=== PATIENT | male | born 1940 | race Caucasian/White ===

== ENCOUNTER 2017-01-25 10:22 | Inpatient (IN) | payer MEDICARE ==
[2017-01-25] MEDS ORDERED: IBUPROFEN 600 MG TAB PO STA (11:24)
[2017-01-25] MEDS ORDERED: ACETAMINOPHEN TAB 500 MG TAB PO STA (11:24)
[2017-01-25] MEDS ORDERED: HYDROmorphone 1 MG/ML 1 ML SYRINGE IVP STA (11:25)
[2017-01-25] MEDS ORDERED: ONDANSETRON 4 MG/2 ML VIAL IVP STA (11:25)
--- NOTE | 2017-01-25 11:27 | ED ---
General Adult HPI - General Chief complaint: Shortness of Breath Stated complaint: BACK AND LUNG PAIN FOLLOWING HIGH FEVER Time Seen by Provider: 01/25/17 11:00 Source: patient, family, RN notes reviewed Mode of arrival: wheelchair Limitations: no limitations - History of Present Illness Initial comments: This is a 76-year-old male who presents emergency Department complaining of severe lower back pain and pleuritic chest pain. Patient states about 5 days who had a 2 day history of fever and then it went away and then the next day he woke up he had severe lower back pain and pain with deep inspiration or cough. Patient states he has no pain in the chest while he is taking a deep breath or coughing. Patient denies any shortness of breath. Patient denies fever over the last couple of days. Patient denies any numbness or weakness or radiation of the back pain down his legs. Patient denies any abdominal pain patient denies nausea vomiting or diarrhea. Patient denies headache patient denies any lightheadedness dizziness or near-syncopal episode. - Related Data Home Medications Medication Instructions Recorded Confirmed Allopurinol [Zyloprim] 200 mg PO DAILY 01/25/17 01/25/17 Clarithromycin [Clarithromycin ER] 500 mg PO DIRECTED 01/25/17 01/25/17 Ferrous Sulfate [Feosol] 325 mg PO DAILY 01/25/17 01/25/17 Hydrocodone/Acetaminophen [Coleman 1 tab PO Q6H PRN 01/25/17 01/25/17 10-325] Krill Oil 500 mg PO DAILY 01/25/17 01/25/17 Lansoprazole 30 mg PO DAILY 01/25/17 01/25/17 Metoprolol Tartrate 25 mg PO BID 01/25/17 01/25/17 Simvastatin [Zocor] 20 mg PO HS 01/25/17 01/25/17 Warfarin [Coumadin] 5 mg PO DAILY 01/25/17 01/25/17 Allergies Allergy/AdvReac Type Severity Reaction Status Date / Time No Known Allergies Allergy Verified 01/25/17 12:16 Review of Systems ROS Statement: Those systems with pertinent positive or pertinent negative responses have been documented in the HPI. ROS Other: All systems not noted in ROS Statement are negative. Past Medical History Past Medical History: Heart Failure, GERD/Reflux, Hyperlipidemia, Hypertension History of Any Multi-Drug Resistant Organisms: None Reported Past Surgical History: Back Surgery, Cardiac Valve Replacement, Joint Replacement Additional Past Surgical History / Comment(s): valve replacement, knee, L4-5 fusion Past Psychological History: No Psychological Hx Reported Smoking Status: Former smoker Past Alcohol Use History: Daily, Occasional Past Drug Use History: None Reported General Exam - General Exam Comments Initial Comments: GENERAL: Patient is well-developed and well-nourished. Patient is nontoxic and well- hydrated and is in moderate distress. ENT: Neck is soft and supple. No significant lymphadenopathy is noted. Oropharynx is clear. Moist mucous membranes. Neck has full range of motion without eliciting any pain. EYES: The sclera were anicteric and conjunctiva were pink and moist. Extraocular movements were intact and pupils were equal round and reactive to light. Eyelids were unremarkable. PULMONARY: Unlabored respirations. Good breath sounds bilaterally. No audible rales rhonchi or wheezing was noted. CARDIOVASCULAR: There is a regular rate and rhythm without any murmurs gallops or rubs. Patient has pain with deep inspiration ABDOMEN: Soft and nontender with normal bowel sounds. No palpable organomegaly was noted. There is no palpable pulsatile mass. SKIN: Skin is clear with no lesions or rashes and otherwise unremarkable. NEUROLOGIC: Patient is alert and oriented x3. Cranial nerves II through XII are grossly intact. Motor and sensory are also intact. Normal speech, volume and content. Symmetrical smile. MUSCULOSKELETAL: Normal extremities with adequate strength and full range of motion. Patient has tenderness in the lumbar region bilaterally. Patient is in exquisite pain when trying to sit him up in bed he states the pain is in his lower back. LYMPHATICS: No significant lymphadenopathy is noted PSYCHIATRIC: Normal psychiatric evaluation. Normal interpersonal interactions appears functionally intact in deals appropriately with others. No signs of depression. No signs of anxiety. Limitations: no limitations Course Vital Signs 01/25/17 01/25/17 01/25/17 10:50 11:20 11:52 Temperature 99.0 F Pulse Rate 77 81 Respiratory 18 18 15 Rate Blood Pressure 151/86 148/79 O2 Sat by Pulse 95 96 Oximetry Medical Decision Making - Medical Decision Making EKG shows atrial fibrillation with occasional PVC at 80 bpm QRS is 90 QT intervals 46 QTC is 468. EKG shows no ST segment elevation or depression no T- wave abnormalities are noted Patient was feeling better after Dilaudid but any kind of movement made him grimace because the lower back pain. Patient also had a sweat as he tried to move because of his lower back. - Lab Data Result diagrams: 01/25/17 11:35 01/25/17 11:35 Lab Results 01/25/17 01/25/17 01/25/17 Range/Units 11:35 11:35 11:35 WBC 12.8 H (3.8-10.6) k/uL RBC 4.00 L (4.30-5.90) m/uL Hgb 11.5 L (13.0-17.5) gm/dL Hct 36.5 L (39.0-53.0) % MCV 91.3 (80.0-100.0) fL MCH 28.9 (25.0-35.0) pg MCHC 31.6 (31.0-37.0) g/dL RDW 17.8 H (11.5-15.5) % Plt Count 155 (150-450) k/uL Neutrophils % 85 % Lymphocytes % 4 % Monocytes % 7 % Eosinophils % 0 % Basophils % 0 % Neutrophils # 10.9 H (1.3-7.7) k/uL Lymphocytes # 0.5 L (1.0-4.8) k/uL Monocytes # 0.9 (0-1.0) k/uL Eosinophils # 0.0 (0-0.7) k/uL Basophils # 0.0 (0-0.2) k/uL Anisocytosis Slight Sodium 135 L (137-145) mmol/L Potassium 4.3 (3.5-5.1) mmol/L Chloride 101 (98-107) mmol/L Carbon Dioxide 23 (22-30) mmol/L Anion Gap 11 mmol/L BUN 30 H (9-20) mg/dL Creatinine 0.80 (0.66-1.25) mg/dL Est GFR (MDRD) Af Amer >60 (>60 ml/min/1.73 sqM) Est GFR (MDRD) Non-Af >60 (>60 ml/min/1.73 sqM) Glucose 119 H (74-99) mg/dL Plasma Lactic Acid Francisco Javier (0.7-2.0) mmol/L Calcium 9.1 (8.4-10.2) mg/dL Total Bilirubin 1.5 H (0.2-1.3) mg/dL AST 38 (17-59) U/L ALT 49 (21-72) U/L Alkaline Phosphatase 105 (38-126) U/L Total Creatine Kinase 85 (55-170) U/L CK-MB (CK-2) 2.5 H* (0.0-2.4) ng/mL CK-MB (CK-2) Rel Index 2.9 Troponin I 0.097 H* (0.000-0.034) ng/mL Total Protein 6.6 (6.3-8.2) g/dL Albumin 3.4 L (3.5-5.0) g/dL Urine Color Urine Appearance (Clear) Urine pH (5.0-8.0) Ur Specific [place] (1.001-1.035) Urine Protein (Negative) Urine Glucose (UA) (Negative) Urine Ketones (Negative) Urine Blood (Negative) Urine Nitrite (Negative) Urine Bilirubin (Negative) Urine Urobilinogen (<2.0) mg/dL Ur Leukocyte Esterase (Negative) Urine RBC (0-5) /hpf Urine WBC (0-5) /hpf Granular Casts (0) /lpf Urine Mucus (None) /hpf Influenza Type A RNA (Not Detectd) Influenza Type B (PCR) (Not Detectd) 01/25/17 01/25/17 01/25/17 Range/Units 11:35 11:35 11:38 WBC (3.8-10.6) k/uL RBC (4.30-5.90) m/uL Hgb (13.0-17.5) gm/dL Hct (39.0-53.0) % MCV (80.0-100.0) fL MCH (25.0-35.0) pg MCHC (31.0-37.0) g/dL RDW (11.5-15.5) % Plt Count (150-450) k/uL Neutrophils % % Lymphocytes % % Monocytes % % Eosinophils % % Basophils % % Neutrophils # (1.3-7.7) k/uL Lymphocytes # (1.0-4.8) k/uL Monocytes # (0-1.0) k/uL Eosinophils # (0-0.7) k/uL Basophils # (0-0.2) k/uL Anisocytosis Sodium (137-145) mmol/L Potassium (3.5-5.1) mmol/L Chloride (98-107) mmol/L Carbon Dioxide (22-30) mmol/L Anion Gap mmol/L BUN (9-20) mg/dL Creatinine (0.66-1.25) mg/dL Est GFR (MDRD) Af Amer (>60 ml/min/1.73 sqM) Est GFR (MDRD) Non-Af (>60 ml/min/1.73 sqM) Glucose (74-99) mg/dL Plasma Lactic Acid Francisco Javier 1.0 (0.7-2.0) mmol/L Calcium (8.4-10.2) mg/dL Total Bilirubin (0.2-1.3) mg/dL AST (17-59) U/L ALT (21-72) U/L Alkaline Phosphatase (38-126) U/L Total Creatine Kinase (55-170) U/L CK-MB (CK-2) (0.0-2.4) ng/mL CK-MB (CK-2) Rel Index Troponin I (0.000-0.034) ng/mL Total Protein (6.3-8.2) g/dL Albumin (3.5-5.0) g/dL Urine Color Yellow Urine Appearance Cloudy (Clear) Urine pH 5.5 (5.0-8.0) Ur Specific [place] 1.017 (1.001-1.035) Urine Protein 3+ H (Negative) Urine Glucose (UA) Negative (Negative) Urine Ketones Negative (Negative) Urine Blood Small H (Negative) Urine Nitrite Negative (Negative) Urine Bilirubin Negative (Negative) Urine Urobilinogen 3.0 (<2.0) mg/dL Ur Leukocyte Esterase Negative (Negative) Urine RBC 1 (0-5) /hpf Urine WBC 4 (0-5) /hpf Granular Casts 10 (0) /lpf Urine Mucus Rare H (None) /hpf Influenza Type A RNA Not Detected (Not Detectd) Influenza Type B (PCR) Not Detected (Not Detectd) Disposition Clinical Impression: Atrial fibrillation, Elevated troponin, Intractable low back pain Disposition: ADMITTED IP TO THIS HOSP Referrals: Last Orona Jr, [Primary Care Provider] - 1-2 days Time of Disposition: 14:12
[2017-01-25 11:51] LABS: Anisocytosis Slight; Basophils % (A) 0 %; CH 29.3; CHCM 32.3; Eosinophils % (A) 0 %; HCT 36.5 % (39.0-53.0); HDW 2.63; HGB 11.5 gm/dL (13.0-17.5); Luc # (Auto) 0.43; Luc % (Auto) 3; Lymphocytes # (A) 0.5 k/uL (1.0-4.8); Lymphocytes % (A) 4 %; MCH 28.9 pg (25.0-35.0); MCHC 31.6 g/dL (31.0-37.0); MCV 91.3 fL (80.0-100.0); Mean Platelet Volume 7.8; Monocytes # (A) 0.9 k/uL (0-1.0); Monocytes % (A) 7 %; Neutrophils # (A) 10.9 k/uL (1.3-7.7); Neutrophils % (A) 85 %; RDW 17.8 % (11.5-15.5); WBC 12.8 k/uL (3.8-10.6); WBC (Perox) 12.79
[2017-01-25 11:55] LABS: Appearance,Urine Cloudy (Clear); Bilirubin,Urine Negative (Negative); Glucose,Urine (UA) Negative (Negative); Granular Casts,Urine 10 /lpf (0); Ketones,Urine Negative (Negative); Leukocyte Esterase,Urine Negative (Negative); Mucus,Urine Rare /hpf; Nitrite,Urine Negative (Negative); PH, Urine 5.5 (5.0-8.0); Particle Count 8175; Protein,Urine 3+ (Negative); RBC,Urine 1 /hpf (0-5); Specific Gravity,Urine 1.017 (1.001-1.035); UA Billing (MACRO vs. MICRO) MICRO; WBC,Urine 4 /hpf (0-5)
[2017-01-25 12:09] LABS: ALT 49 U/L (21-72); AST 38 U/L (17-59); Alkaline Phosphatase 105 U/L (38-126); Carbon Dioxide 23 mmol/L (22-30); Non-African American GFR(MDRD) >60 (>60 ml/min/1.73 sqM); Total Protein 6.6 g/dL (6.3-8.2)
--- NOTE | 2017-01-25 12:13 | XR ---
EXAMINATION TYPE: XR chest 2V DATE OF EXAM: 01/25/2017 12:08 PM COMPARISON: NONE HISTORY: Difficulty breathing TECHNIQUE: Frontal and lateral views of the chest are obtained. FINDINGS: The heart is enlarged. Interstitium and central vascularity are prominent. Marked arthropa thy present in the right shoulder. No pneumothorax or pleural effusion. The aorta is dense. Patient i s post median sternotomy. Pacemaker is present with the lead in the right ventricle. IMPRESSION: Correlate for pulmonary venous hypertension and interstitial edema, heart failure, follo w-up is recommended.
[2017-01-25 12:30] LABS: Anion Gap 11 mmol/L; Blood Urea Nitrogen 30 mg/dL (9-20); Calcium 9.1 mg/dL (8.4-10.2); Chloride 101 mmol/L (98-107); Glucose 119 mg/dL (74-99); Potassium 4.3 mmol/L (3.5-5.1); Sodium 135 mmol/L (137-145); Total Bilirubin 1.5 mg/dL (0.2-1.3)
[2017-01-25 12:39] LABS: Creatine Kinase MB 2.5 ng/mL (0.0-2.4); Troponin I 0.097 ng/mL (0.000-0.034)
[2017-01-25] MEDS ORDERED: RX INFO: IV CONTRAST WAS GIVEN 1 EACH MISC MISCELLANE PRN (12:47)
--- NOTE | 2017-01-25 14:08 | CT ---
EXAMINATION TYPE: CT lumbar spine w con DATE OF EXAM: 01/25/2017 1:50 PM COMPARISON: MRI lumbar spine July 27, 2010. HISTORY: Patient complains of low back pain. No recent injury or surgery. History of lumbar fusion in 2009. CT DLP: 944 mGycm Automated exposure control for dose reduction was used. CONTRAST: Performed with IV Contrast, patient injected with 100 mL of Omnipaque 300. FINDINGS: There are 5 lumbar-type vertebra redemonstrated. There is levoconvex scoliosis centered in the mid ras mbar spine and dextroconvex scoliosis centered in the lower lumbar spine on coronal images. No acute fracture or dislocation is seen. There is slight grade 1 retrolisthesis of L2 on L3 and anterolisthes is L4 on L5 on sagittal images. There is posterior interpedicular rods and screws transfixing L4 and L5 levels. Advanced disc space narrowing with artificial disc material L4-L5 level is seen. Some ossi fic fusion is present. There is moderate to advanced disc space narrowing with spurring as well as lerner bchondral cystic change and sclerosis at L3-L4 level. There is moderate to advanced disc space narrow ing with sclerosis and subchondral cystic change and moderate spurring at L2-L3 level. Prominent post erior spur effaces anterior thecal sac from inferior L2 vertebra on sagittal image 29. There is vacuu m disc phenomenon with mild to moderate disc space narrowing L1-L2 level. There is posterior spinous process resection L4 and L5 levels noted. Axial images at T12-L1 level are felt within normal limits. Axial images at L1-L2 show mild to moderate broad disc bulge with mild facet degenerative changes ronald aterally. There is effacement of the anterior and posterior lateral thecal sac on axial image 24. The re is suspected moderate bilateral neural foraminal narrowing at this level. Axial images at L2-L3 level show posterior spur disc complex and facet degenerative changes and ligam entum flavum hypertrophy causing spinal canal effacement or stenosis on axial image 32. There is arely re right greater than left neural foraminal narrowing at this level identified. Axial images at the L3-L4 level shows artifact from surgical hardware. Facet arthropathy is present. There is posterior spinal canal compression. There is suspected moderate left and severe bilateral ne ural foraminal narrowing at this level. Axial images at L4-L5 level show dense artificial disc material. There is posterior decompression wit h laminectomy defects and spinous process resection. Ill-defined scar tissue surrounds spinal canal. Bilateral neural foramina are grossly patent. Axial images at L5-S1 level show mild to moderate facet degenerative changes bilaterally. Spinal elizabeth l is preserved. There is mild to moderate bilateral neural foraminal narrowing at this level identifi ed. There is prominent scar tissue along the posterior spinal canal at superior L3 through inferior L4 ve rtebral body levels slightly more round nodular area noted on axial image 39, etiology of this uncert ain, consider synovial cyst or free disc fragment. There is moderate atherosclerotic change of aorta extending into pelvic branch vessels. There is larg e simple appearing cysts or lobulated cyst within septation image medially in the right kidney. There is lobulated simple appearing cyst upper pole level left kidney seen on coronal images. Normal-appea ring appendix is partially imaged the right lower quadrant. Visualized liver is hypodense suggesting fatty infiltration. IMPRESSION: Extensive postsurgical and degenerative changes in the lumbar spine as detailed above. No suspicious well-formed fluid collection or abscess is seen. No acute fractures are noted.
[2017-01-25] MEDS ORDERED: NITROGLYCERIN SL TABS 0.4 MG TAB SUBLINGUAL PRN (14:13)
[2017-01-25] MEDS ORDERED: DIAZEPAM 5 MG/ML 2 ML SYRINGE IVP STA (14:13)
[2017-01-25] MEDS ORDERED: HYDROmorphone 1 MG/ML 1 ML SYRINGE IVP PRN (14:19)
[2017-01-25 15:18] LABS: INR 1.7 (<1.1); Partial Thromboplastin Time 33.4 sec (22.0-30.0); Prothrombin Time 16.7 sec (9.0-12.0)
[2017-01-25 18:28] LABS: Creatine Kinase MB 3.6 ng/mL (0.0-2.4); Troponin I 0.084 ng/mL (0.000-0.034)
[2017-01-25 18:47] VITALS: BMI 26.2
[2017-01-25 20:46] LABS: Glucose,Whole Blood 112 mg/dL (75-99)
[2017-01-25] MEDS: KETOROLAC 30 MG/ML 1 ML VIAL IVP SCH (21:46)
[2017-01-25] MEDS: WARFARIN 5 MG TAB PO SCH (21:47)
[2017-01-25] MEDS: METOPROLOL TARTRATE 25 MG TAB PO SCH (21:47)
[2017-01-25] MEDS: ATORVASTATIN 10 MG TAB PO SCH (21:47)
[2017-01-26 00:04] LABS: Creatine Kinase MB 3.3 ng/mL (0.0-2.4); Troponin I 0.044 ng/mL (0.000-0.034)
[2017-01-26] MEDS: KETOROLAC 30 MG/ML 1 ML VIAL IVP SCH ×5 (01:35→23:30)
[2017-01-26 03:55] LABS: Cholesterol 107 mg/dL (<200); HDL Cholesterol 66 mg/dL (40-60); Triglycerides 53 mg/dL (<150)
[2017-01-26] MEDS ORDERED: IV VANCOMYCIN PER PHARMACY 1 EACH MISC MISCELLANE PRN (04:35)
[2017-01-26] MEDS ORDERED: VANCOMYCIN 1,500 MG in SODIUM CHLORIDE 0.9% 250 ML IVPB ONE (05:00)
[2017-01-26 05:35] LABS: Glucose,Whole Blood 120 mg/dL (75-99)
[2017-01-26] MEDS: PANTOPRAZOLE 40 MG TABLET PO SCH (06:56)
[2017-01-26 08:53] LABS: Anisocytosis Slight; Basophils % (A) 0 %; CH 29.6; CHCM 31.4; Eosinophils % (A) 0 %; HCT 35.4 % (39.0-53.0); HDW 2.66; HGB 11.1 gm/dL (13.0-17.5); Hypochromasia Slight; Luc # (Auto) 0.33; Luc % (Auto) 3; Lymphocytes # (A) 0.6 k/uL (1.0-4.8); Lymphocytes % (A) 6 %; MCH 29.8 pg (25.0-35.0); MCHC 31.5 g/dL (31.0-37.0); MCV 94.8 fL (80.0-100.0); Mean Platelet Volume 8.2; Monocytes # (A) 0.6 k/uL (0-1.0); Monocytes % (A) 6 %; Neutrophils # (A) 8.6 k/uL (1.3-7.7); Neutrophils % (A) 84 %; RBC 3.73 m/uL (4.30-5.90); RDW 17.8 % (11.5-15.5); WBC 10.2 k/uL (3.8-10.6); WBC (Perox) 10.79
[2017-01-26] MEDS ORDERED: NON-FORMULARY DRUG (Krill Oil [Krill Oil] 500 MG) PO SCH (09:00)
[2017-01-26] MEDS ORDERED: ASPIRIN 325 MG TAB PO SCH (09:00)
[2017-01-26 09:05] LABS: Anion Gap 9 mmol/L; Blood Urea Nitrogen 36 mg/dL (9-20); Calcium 8.9 mg/dL (8.4-10.2); Carbon Dioxide 25 mmol/L (22-30); Chloride 102 mmol/L (98-107); Glucose 89 mg/dL (74-99); Non-African American GFR(MDRD) >60 (>60 ml/min/1.73 sqM); Sodium 136 mmol/L (137-145)
[2017-01-26 09:11] LABS: Prothrombin Time 19.3 sec (9.0-12.0)
[2017-01-26] MEDS: ALLOPURINOL 100 MG TAB PO SCH (09:19)
[2017-01-26] MEDS: METOPROLOL TARTRATE 25 MG TAB PO SCH ×2 (09:19→19:51)
[2017-01-26] MEDS: FERROUS SULFATE 325 MG TAB PO SCH (09:19)
[2017-01-26] MEDS: HYDROcodone/APAP 10-325MG 1 EACH TAB PO PRN (09:20)
--- NOTE | 2017-01-26 09:20 | P.CONS ---
History of Present Illness - Reason for Consult Consult date: 01/26/17 positive blood culture - History of Present Illness This is a 76-year-old male that gives history of eating Serbian salad last week and approximate 5-6 hours later starting having a fever up to 104. He states he had a fever of 104 for 2 days and was using ice to help it. By Monday, his temperature was down to 99. Following that, he developed lumbar back pain which is been so severe that he was not able to move and other people could not help him to move and it's gradually went up his back to the low thoracic area and now comes around under his diaphragm and is causing spasm- like pain. He denies any injuries or falls. He does have history of 3 packs fusions in the past the last one was 10 years ago and he has had no back pain since then. He also has a significant past history of aortic valve replacement with bovine at [facility] in 07/25/2016. He states he has had decreased appetite prior to that and has continued to have decreased appetite since the heart surgery. He also has history of atrial fibrillation and has been on long-term Coumadin for many years. Patient presented to [facility] emergency center was found to be afebrile, white count of 12.8, troponins were 0.097, 0.084 and 0.044. Cardiology is on consult and echocardiogram has been done. Influenza A and B are negative. Patient denies having any nasal congestion, drainage, cough, sore throat. He does state he has had body aches. Urinalysis was cloudy, blood small, nitrate and leukoesterase negative. Chest x-ray shows correlate for pulmonary venous hypertension and interstitial edema, heart failure. CAT scan of the lumbar spine with contrast shows extensive postsurgical and degenerative changes in the lumbar spine. No suspicious well formed fluid collection or abscess seen. No acute fracture. Patient has traveled extensively throughout [place], [place], [place], [place], [place] and etc. He states all immunizations have been up to date for travel. He was also stationed in [facility] in the [facility] in the 1960s as well as stationed in [facility]. His last travel was last summer to [place]. At this time, in general he is feeling improvement. He has been on vancomycin. Blood culture obtained in the ER is showing gram-positive cocci in pairs and chains. Patient does state that he has had some decreased oral intake and urine is a strong yellow color but he has not had any dysuria, frequency. Review of Systems All systems: negative Constitutional: Reports chills, Reports fatigue, Reports fever, Reports poor appetite, Reports weakness Eyes: denies blurred vision, denies pain Ears, nose, mouth and throat: Denies dental pain, Denies headache, Denies mouth pain, Denies nasal congestion, Denies nasal discharge, Denies sore throat, Denies vertigo Cardiovascular: Reports chest pain, Denies edema, Denies leg edema, Denies lightheadedness, Denies shortness of breath, Denies syncope Respiratory: Denies cough, Denies cough with sputum, Denies dyspnea, Denies excessive sputum, Denies hemoptysis, Denies home oxygen Gastrointestinal: Denies abdominal pain, Denies diarrhea, Denies nausea, Denies vomiting Genitourinary: Denies dysuria, Denies urinary frequency Musculoskeletal: Reports low back pain, Reports myalgias, Denies frequent falls Integumentary: Denies pruritus, Denies rash Neurological: Denies numbness, Denies weakness Psychiatric: Denies anxiety, Denies depression Endocrine: Denies fatigue, Denies weight change Past Medical History Past Medical History: Atrial Fibrillation, Heart Failure, GERD/Reflux, Hearing Disorder / Deafness, Hyperlipidemia, Hypertension History of Any Multi-Drug Resistant Organisms: None Reported Past Surgical History: Back Surgery, Cardiac Valve Replacement, Joint Replacement Additional Past Surgical History / Comment(s): Bilateral cataract removal and intraocular lens implants, 3 back fusions of L4-5, aortic valve replacement with bovine at [facility] July 2016, right total knee arthroplasty Past Anesthesia/Blood Transfusion Reactions: No Reported Reaction Past Psychological History: No Psychological Hx Reported Smoking Status: Former smoker Past Alcohol Use History: Daily, Occasional Additional Past Alcohol Use History / Comment(s): patient smoked for 4 years and quit in 1960. Patient has traveled extensively throughout [place], [place], [place], [place], [place] and etc. He states all immunizations have been up to date for travel. 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 His last travel was last summer to [place]. 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 He currently lives at home with his who is Serbian and 2 children. Past Drug Use History: None Reported - Past Family History Father Family Medical History: Cancer Mother Family Medical History: No Reported History Medications and Allergies Home Medications Medication Instructions Recorded Confirmed Type Allopurinol [Zyloprim] 200 mg PO DAILY 01/25/17 01/25/17 History Clarithromycin [Clarithromycin ER] 500 mg PO DIRECTED 01/25/17 01/25/17 History Ferrous Sulfate [Feosol] 325 mg PO DAILY 01/25/17 01/25/17 History Hydrocodone/Acetaminophen [Blum 1 tab PO Q6H PRN 01/25/17 01/25/17 History 10-325] Krill Oil 500 mg PO DAILY 01/25/17 01/25/17 History Lansoprazole 30 mg PO DAILY 01/25/17 01/25/17 History Metoprolol Tartrate 25 mg PO BID 01/25/17 01/25/17 History Simvastatin [Zocor] 20 mg PO HS 01/25/17 01/25/17 History Warfarin [Coumadin] 5 mg PO DAILY 01/25/17 01/25/17 History Allergies Allergy/AdvReac Type Severity Reaction Status Date / Time No Known Allergies Allergy Verified 01/25/17 12:16 Physical Exam Vitals: Vital Signs Temp Pulse Pulse Pulse Resp BP BP 01/26/17 08:10 74 18 01/26/17 07:54 98.8 F 64 18 127/66 01/26/17 04:00 98.9 F 66 66 18 129/70 01/26/17 00:00 98.4 F 75 18 123/74 01/25/17 20:00 97.6 F 63 18 136/72 01/25/17 19:08 81 01/25/17 18:02 97.1 F L 80 18 121/68 01/25/17 17:09 68 18 108/55 01/25/17 16:39 61 121/81 01/25/17 16:09 75 126/61 01/25/17 15:39 92 150/88 01/25/17 15:21 97.7 F 81 130/74 01/25/17 15:09 74 18 134/63 Pulse Ox 01/26/17 08:10 01/26/17 07:54 96 01/26/17 04:00 99 01/26/17 00:00 98 01/25/17 20:00 97 01/25/17 19:08 01/25/17 18:02 98 01/25/17 17:09 99 01/25/17 16:39 01/25/17 16:09 01/25/17 15:39 01/25/17 15:21 98 01/25/17 15:09 99 Intake and Output 01/25/17 01/26/17 01/26/17 22:59 06:59 14:59 Intake Total 900 0 Balance 900 0 Intake: Oral 900 0 Other: Voiding Method Toilet Toilet Toilet Urinal Urinal Urinal # Voids 1 2 Weight 75.75 kg 77 kg Gen: This is a 76-year-old male. He is found in bed and appears to be in no acute distress. HEENT: Head is atraumatic, normocephalic. Pupils equal, round. Sclerae is anicteric. conjunctiva pink. Mucous members of the mouth are moist. No thrush noted. Dentition is in fair order for age. NECK: Supple. No JVD. No lymphadenopathy. No thyromegaly. LUNGS: Clear to auscultation. No wheezes or rhonchi. No intercostal retractions. HEART: Regular rate and rhythm. No murmur. ABDOMEN: Soft. Bowel sounds are present. No masses. No tenderness. BACK: patient has mild tenderness to the low thoracic area as well as left side of the spine at approximate L4. Surgical wounds noted to the lumbar area. All are completely healed. No swollen areas, deformities noted. No rashes noted. straight leg lift is negative. Foot push pulls strong and equal bilaterally. EXTREMITIES: No pedal edema. No calf tenderness. NEUROLOGICAL: Patient is awake, alert and oriented x3. Cranial nerves 2 through 12 are grossly intact. Results Results: Laboratory Results WBC 10.2 k/uL (3.8-10.6) 01/26/17 08:32 RBC 3.73 m/uL (4.30-5.90) L 01/26/17 08:32 Hgb 11.1 gm/dL (13.0-17.5) L 01/26/17 08:32 Hct 35.4 % (39.0-53.0) L 01/26/17 08:32 MCV 94.8 fL (80.0-100.0) 01/26/17 08:32 MCH 29.8 pg (25.0-35.0) 01/26/17 08:32 MCHC 31.5 g/dL (31.0-37.0) 01/26/17 08:32 RDW 17.8 % (11.5-15.5) H 01/26/17 08:32 Plt Count 122 k/uL (150-450) L 01/26/17 08:32 Neutrophils % 84 % 01/26/17 08:32 Lymphocytes % 6 % 01/26/17 08:32 Monocytes % 6 % 01/26/17 08:32 Eosinophils % 0 % 01/26/17 08:32 Basophils % 0 % 01/26/17 08:32 Neutrophils # 8.6 k/uL (1.3-7.7) H 01/26/17 08:32 Lymphocytes # 0.6 k/uL (1.0-4.8) L 01/26/17 08:32 Monocytes # 0.6 k/uL (0-1.0) 01/26/17 08:32 Eosinophils # 0.0 k/uL (0-0.7) 01/26/17 08:32 Basophils # 0.0 k/uL (0-0.2) 01/26/17 08:32 Hypochromasia Slight 01/26/17 08:32 Anisocytosis Slight 01/26/17 08:32 PT 19.3 sec (9.0-12.0) H 01/26/17 08:32 INR 2.0 (<1.1) 01/26/17 08:32 APTT 33.4 sec (22.0-30.0) H 01/25/17 14:00 D-Dimer 2.57 mg/L FEU (<0.60) H 01/26/17 08:32 Sodium 135 mmol/L (137-145) L 01/25/17 11:35 Potassium 4.3 mmol/L (3.5-5.1) 01/25/17 11:35 Chloride 101 mmol/L (98-107) 01/25/17 11:35 Carbon Dioxide 23 mmol/L (22-30) 01/25/17 11:35 Anion Gap 11 mmol/L 01/25/17 11:35 BUN 30 mg/dL (9-20) H 01/25/17 11:35 Creatinine 0.80 mg/dL (0.66-1.25) 01/25/17 11:35 Est GFR (MDRD) Af Amer >60 (>60 ml/min/1.73 sqM) 01/25/17 11:35 Est GFR (MDRD) Non-Af >60 (>60 ml/min/1.73 sqM) 01/25/17 11:35 Glucose 119 mg/dL (74-99) H 01/25/17 11:35 POC Glucose (mg/dL) 120 mg/dL (75-99) H 01/26/17 05:33 POC Glu Golf Cart Mechanic ID Cassidy Cardona 01/26/17 05:33 Plasma Lactic Acid Francisco Javier 1.0 mmol/L (0.7-2.0) 01/25/17 11:35 Calcium 9.1 mg/dL (8.4-10.2) 01/25/17 11:35 Total Bilirubin 1.5 mg/dL (0.2-1.3) H 01/25/17 11:35 AST 38 U/L (17-59) 01/25/17 11:35 ALT 49 U/L (21-72) 01/25/17 11:35 Alkaline Phosphatase 105 U/L (38-126) 01/25/17 11:35 Total Creatine Kinase 56 U/L (55-170) 01/25/17 23:20 CK-MB (CK-2) 3.3 ng/mL (0.0-2.4) H* 01/25/17 23:20 CK-MB (CK-2) Rel Index 5.9 01/25/17 23:20 Troponin I 0.044 ng/mL (0.000-0.034) H* 01/25/17 23:20 Total Protein 6.6 g/dL (6.3-8.2) 01/25/17 11:35 Albumin 3.4 g/dL (3.5-5.0) L 01/25/17 11:35 Triglycerides 53 mg/dL (<150) 01/25/17 11:32 Cholesterol 107 mg/dL (<200) 01/25/17 11:32 LDL Cholesterol, Calc 30 mg/dL (0-99) 01/25/17 11:32 HDL Cholesterol 66 mg/dL (40-60) H 01/25/17 11:32 Urine Color Yellow 01/25/17 11:38 Urine Appearance Cloudy (Clear) 01/25/17 11:38 Urine pH 5.5 (5.0-8.0) 01/25/17 11:38 Ur Specific [place] 1.017 (1.001-1.035) 01/25/17 11:38 Urine Protein 3+ (Negative) H 01/25/17 11:38 Urine Glucose (UA) Negative (Negative) 01/25/17 11:38 Urine Ketones Negative (Negative) 01/25/17 11:38 Urine Blood Small (Negative) H 01/25/17 11:38 Urine Nitrite Negative (Negative) 01/25/17 11:38 Urine Bilirubin Negative (Negative) 01/25/17 11:38 Urine Urobilinogen 3.0 mg/dL (<2.0) 01/25/17 11:38 Ur Leukocyte Esterase Negative (Negative) 01/25/17 11:38 Urine RBC 1 /hpf (0-5) 01/25/17 11:38 Urine WBC 4 /hpf (0-5) 01/25/17 11:38 Granular Casts 10 /lpf (0) 01/25/17 11:38 Urine Mucus Rare /hpf (None) H 01/25/17 11:38 Influenza Type A RNA Not Detected (Not Detectd) 01/25/17 11:35 Influenza Type B (PCR) Not Detected (Not Detectd) 01/25/17 11:35 CBC & Chem 7: 01/26/17 08:32 01/26/17 08:32 Labs: Abnormal Lab Results - Last 24 Hours (Table) 01/25/17 01/25/17 01/25/17 Range/Units 17:34 20:44 23:20 RBC (4.30-5.90) m/uL Hgb (13.0-17.5) gm/dL Hct (39.0-53.0) % RDW (11.5-15.5) % Plt Count (150-450) k/uL Neutrophils # (1.3-7.7) k/uL Lymphocytes # (1.0-4.8) k/uL POC Glucose (mg/dL) 112 H (75-99) mg/dL CK-MB (CK-2) 3.6 H* 3.3 H* (0.0-2.4) ng/mL Troponin I 0.084 H* 0.044 H* (0.000-0.034) ng/mL 01/26/17 01/26/17 Range/Units 05:33 08:32 RBC 3.73 L (4.30-5.90) m/uL Hgb 11.1 L (13.0-17.5) gm/dL Hct 35.4 L (39.0-53.0) % RDW 17.8 H (11.5-15.5) % Plt Count 122 L (150-450) k/uL Neutrophils # 8.6 H (1.3-7.7) k/uL Lymphocytes # 0.6 L (1.0-4.8) k/uL POC Glucose (mg/dL) 120 H (75-99) mg/dL CK-MB (CK-2) (0.0-2.4) ng/mL Troponin I (0.000-0.034) ng/mL Assessment and Plan Plan: this is a 76-year-old male who was having fevers up to 104 at home and then onset of lumbar back pain now in the low thoracic area that is radiating around under the diaphragm. Influenza testing has been negative. He has been worked up by cardiology and echocardiogram is in process. Troponin slightly elevated. Blood cultur initially showing gram-positive cocci in pairs and chains. He has been started on vancomycin which will be continued and ceftriaxone added. Repeat blood cultures are requested. Requested ISIDRO. Continue supportive care. Further recommendations as patient progresses. The above dictated assessment and findings were discussed with Dr. Quinones. The impression and plan of care have been directed as dictated. Bailey Armijo nurse practitioner acting as scribe for Dr. Quinones. Time with Patient: Greater than 30
[2017-01-26] MEDS ORDERED: RX INFO: IV CONTRAST WAS GIVEN 1 EACH MISC MISCELLANE PRN (09:21)
--- NOTE | 2017-01-26 11:30 | ECHOF ---
Referral Reason:lv function MEASUREMENTS -------- HEIGHT: 170.2 cm WEIGHT: 76.7 kg BP: 127/66 RVIDd: 3.9 cm (< 3.3) IVSd: 1.4 cm (0.6 - 1.1) LVIDd: 5.5 cm (3.9 - 5.3) LVPWd: 1.4 cm (0.6 - 1.1) IVSs: 1.9 cm LVIDs: 3.5 cm LVPWs: 1.9 cm LA Diam: 5.2 cm (2.7 - 3.8) LAESV Index (A-L): 82.31 ml/m Ao Diam: 3.0 cm (2.0 - 3.7) AV Cusp: 1.9 cm (1.5 - 2.6) LA Diam: 5.0 cm (2.7 - 3.8) MV EXCURSION: 23.905 mm (> 18.000) MV EF SLOPE: 100 mm/s (70 - 150) AV maxP.57 mmHg AV maxP.57 mmHg AV meanP.20 mmHg RAP: 5.00 mmHg RVSP: 47.59 mmHg FINDINGS -------- Atrial fibrillation. Pacerwire seen in RV and RA. This was a technically good study. The left ventricular size is normal. There is moderate concentric left ventricular hypertrophy. Overall left ventricular systolic function is low-normal with, an EF between 50 - 55 %. The right ventricle is mild to moderately enlarged. LA is severely dilated >40 ml/m2 The right atrium is mildly enlarged. Peak/mean gradient across the Aortic Valve is 18.57mmHg / 9.20mmHg. Normally functioning bioprosthetic valve. Mild mitral annular calcification present. Mild mitral regurgitation is present. Moderate tricuspid regurgitation present. There is mild to moderate pulmonary hypertension. The right ventricular systolic pressure, as measured by Doppler, is 47.59mmHg. There is no pulmonic regurgitation present. The aortic root size is normal. The inferior vena cava is mildly dilated. There is no pericardial effusion. CONCLUSIONS -------- 1. Atrial fibrillation. 2. Normally functioning bioprosthetic valve. 3. Mild mitral annular calcification present. 4. Mild mitral regurgitation is present. 5. Moderate tricuspid regurgitation present. 6. There is mild to moderate pulmonary hypertension. 7. There is no pulmonic regurgitation present. 8. The aortic root size is normal. 9. The inferior vena cava is mildly dilated. 10. There is no pericardial effusion. 11. Pacerwire seen in RV and RA. 12. This was a technically good study. 13. There is moderate concentric left ventricular hypertrophy. 14. Overall left ventricular systolic function is low-normal with, an EF between 50 - 55 %. 15. The right ventricle is mild to moderately enlarged. 16. LA is severely dilated >40 ml/m2 17. The right atrium is mildly enlarged. 18. Peak/mean gradient across the Aortic Valve is 18.57mmHg / 9.20mmHg. DIRECTOR BUSINESS INTELLIGENCE: Brad Azevedo RDCS
[2017-01-26 12:02] LABS: Glucose,Whole Blood 141 mg/dL (75-99)
[2017-01-26] MEDS: cefTRIAXone 2,000 MG in SODIUM CHLORIDE 0.9% 100 ML IVPB SCH (12:31)
--- NOTE | 2017-01-26 12:57 | CONS ---
DATE OF CONSULTATION: Aba Solitario is a 76-year-old gentleman admitted by Dr. Last Orona. Consultation requested by. Dr. Orona. Patient admitted to the hospital with increasing shortness of breath, history of free water and low back pain and pleuritic chest pain. Patient is having pain when he coughs in the lower chest and very tender to touch on the rib cage especially in the lower part of the chest. Patient is known to have chronic atrial fibrillation with GFR aortic valve replacement done in July of last year at [facility]. Patient had a couple of days of fevers, Monday and Monday, and fever broke and then started having severe low back pain and also pleuritic type of chest pain. Patient has chronic atrial fibrillation on Coumadin therapy. Patient's pro times are subtherapeutic. Considering patient's history, consider infection, possibly viral infection. Patient does have some gram-positive cocci in the preliminary blood cultures. Dr. Quinones has already seen the patient. Cardiac status-sims, he ( ) and will get an echocardiogram to rule out any endocarditis, which is low probability. Patient unlikely to have any significant coronary artery disease with recent history of valve replacement without any bypass. 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 Patient quit smoking in 1960. Patient lives with his family. Patient's medications prior to admission include allopurinol 1 mg p.o. daily, erythromycin which has been on hold, ferrous sulfate, hydrocodone, [place] as needed, lansoprazole 30 mg p.o. daily, metoprolol tartrate 25 mg p.o. b.i.d., simvastatin 20 mg p.o. daily, warfarin 5 mg p.o. daily. ALLERGIES: None mentioned. REVIEW OF SYSTEMS: Essentially unremarkable other than history of two low back surgeries in the past, history of aortic valve replacement in July 2016 at [facility], history of gastroesophageal reflux disease, history of heart failure, hypertension. Quit smoking in 1960. No history of any alcohol abuse. Physical examination revealed a 76-year-old gentleman, not in acute distress at the time of examination with stable vital signs with a pulse rate of 75 beats per minute, irregular irregularly with blood pressure of 123/74, respirations of 18. HEAD: Normocephalic. HEENT unremarkable. Neck is supple. No thyroid enlargement. No bruit noted. Good carotid upstroke bilaterally. Chest is symmetrical. Cardiac examination regular rate and rhythm. S1 and S2. Good prosthetic valve sounds in the aortic area. Lungs are clinically clear except for a few basal crackles. ABDOMEN: Soft, no organomegaly. Active bowel sounds. The patient is pretty tender on touching the thoracic cage especially on the left side of thoracic cage. EXTREMITIES: No pedal edema. TRANSITION SOCIAL WORKER examination: Grossly within normal limits. EKG revealed atrial fibrillation with controlled ventricular rate without any acute ischemic changes. LABORATORY DATA: Creatinine is 1.3. Troponins have borderline elevation. ASSESSMENT: 1. Status post aortic valve replacement done in July. 2. History of chronic atrial fibrillation. 3. History of low back pain with history of low back surgery. 4. Pleuritic pain, rule out viral infection versus bacterial infection RECOMMENDATIONS: Concur with current therapy. Will proceed with an echocardiogram and also d-dimer. If the d-dimer is elevated will get a CT of the chest to rule out pulmonary process. Because of INR is 1.7 subtherapeutic, but low probability of pulmonary embolism. Suspect a bacterial or viral infection. Thanks again for this kind referral.
[2017-01-26] MEDS: HYDROmorphone 1 MG/ML 1 ML SYRINGE IVP PRN ×2 (13:17→19:52)
[2017-01-26 13:41] LABS: C Reactive Protein 316.5 mg/L (<10.0)
--- NOTE | 2017-01-26 14:47 | CT ---
EXAMINATION TYPE: CT chest angio for PE DATE OF EXAM: 01/26/2017 2:27 PM COMPARISON: Chest x-ray 25 January 2017 HISTORY: SOB, PE CT DLP: 130.8 mGycm Automated exposure control for dose reduction was used. CONTRAST: CT Chest for pulmonary embolism performed with with IV Contrast, patient injected with 80 mL of Visip aque 320. FINDINGS: LUNGS: The lungs are grossly clear, there is no concerning parenchymal mass or nodule identified. T here is no pleural effusion or pneumothorax seen. The tracheobronchial tree is patent. MEDIASTINUM: There is suboptimal enhancement of the pulmonary artery and its branches at the lower lo bes segmental portions, there is no CT evidence for pulmonary embolism. There are no greater than 1 cm hilar or mediastinal lymph nodes. Some pleural thickening or atelectatic lung or scarring present along the medial aspect of the right lower lobe. The heart is markedly enlarged, patient is post med lisette sternotomy. Pulmonary artery measures 3.7 cm, ascending aorta approximately 4.6 cm. There are cor onary artery calcifications. Pacemaker lead is in the right ventricle. Suspect prior aortic valve rep lacement, there is likely mitral valve or mitral annular calcification. Reflux of contrast into the h epatic veins could be indicative of heart failure. No pericardial effusion is seen. There is a nodula r density within the right middle lobe measuring 5 mm that is noncalcified, some subpleural punctate calcifications are present in the right lower lobe. AORTA: No additional significant abnormality is seen. Right shoulder shows lucencies due to marked arthropathy. OTHER: The liver shows a questionable nodular contour, correlate for possible cirrhosis IMPRESSION: There is suboptimal enhancement of the segmental pulmonary arteries possibly due to low ejection frac tion. Consider pulmonary artery hypertension. Ascending aortic aneurysm. There may be old granulomato us disease, indeterminate pulmonary nodule right middle lobe. Additional findings above. Postop branden toribio.
--- NOTE | 2017-01-26 15:13 | P.HPIM ---
History of Present Illness H&P Date: 01/26/17 Chief Complaint: Severe low back pain and pleuritic pain Patient is a 76-year-old male, patient of Dr. 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 Patient states that approximately 5-6 days ago he developed a fever of 104 that lasted 2 days. Following resolution of fever, patient developed severe lumbar back pain to the point where he was unable to get out of bed. Patient states that pain since traveled up to his thoracic spine and radiated into his chest what he describes as pleuritic pain making it difficult for him to take a deep breath or move. No history of nausea, vomiting , abdominal pain, recent trauma, sick contacts. In the emergency department, patient was found to have evidence of leukocytosis with a WBC of 12.8, anemia with a hemoglobin of 11.5, INR 1.7, d-dimer elevated at 2.57, BUN 30, creatinine 0.8, total bilirubin 1.5, CK-MB 3.3, troponin 0.044, C-reactive protein 316.5, pro BNP 3890, pre-albumin 11, albumin 3.4, urinalysis with 3+ protein and small amount of blood. Influenza type A and influenza type B not detected. EKG showed atrial fibrillation with controlled ventricular rate with no ischemic changes. Chest x-ray with evidence of pulmonary venous hypertension and interstitial edema possible heart failure. Pacemaker present with leads in the right ventricle. CT of the lumbar spine but no acute fracture or abscess. Echocardiogram with Doppler with evidence of moderate tricuspid regurgitation; mild to moderate pulmonary hypertension; pacemaker wires to RV and RA; preserved left ventricular systolic function with an EF between 50-55%. Patient with low-grade temperature of 99 in the emergency department. In the emergency department, patient was treated with IV Dilaudid, IV Valium, IV Zofran, and Tylenol. Patient was admitted to the selective care unit with consult to cardiology. Subsequently, preliminary blood cultures with evidence of gram-positive cocci in pairs and chains. Patient was started on IV vancomycin and consult was requested for Dr. Quinones from infectious disease service. Antibiotic in the form of ceftriaxone has since been added. Patient is currently scheduled to undergo a ISIDRO in a.m. CTA chest has been ordered, results pending. Upon examination, patient states he feels better but still has pain taking a deep breath and with movement. Review of Systems Constitutional: Reports fatigue, Reports malaise, Reports poor appetite, Reports weakness, Denies chills, Denies fever, Denies weight gain, Denies weight loss Cardiovascular: Reports decreased exercise tolerance, Reports irregular heart beat, Denies chest pain, Denies dyspnea on exertion, Denies edema Respiratory: Reports pain on inspiration, Reports pleurisy, Denies congestion, Denies cough, Denies cough with sputum, Denies dyspnea, Denies hemoptysis, Denies home oxygen, Denies respiratory infections, Denies sleep apnea, Denies wheezing Gastrointestinal: Reports loss of appetite, Denies abdominal pain, Denies bloating, Denies change in bowel habits, Denies constipation, Denies diarrhea, Denies heartburn, Denies indigestion, Denies nausea, Denies vomiting Genitourinary: Denies dysuria, Denies urinary frequency, Denies urinary hesitancy, Denies urinary retention Musculoskeletal: Reports low back pain, Reports myalgias, Denies arm numbness/ tingling, Denies frequent falls, Denies gait dysfunction, Denies leg numbness/ tingling, Denies neck pain, Denies neck stiffness Integumentary: Denies lesions, Denies rash, Denies wounds Neurological: Reports weakness, Denies numbness, Denies paresthesias, Denies tremors, Denies vertigo, Denies visual changes Psychiatric: Denies depression, Denies sleep disturbances Hematologic/Lymphatic: Reports easy bruising Past Medical History Past Medical History: Atrial Fibrillation, Heart Failure, GERD/Reflux, Hearing Disorder / Deafness, Hyperlipidemia, Hypertension History of Any Multi-Drug Resistant Organisms: None Reported Past Surgical History: Back Surgery, Cardiac Valve Replacement, Joint Replacement Additional Past Surgical History / Comment(s): Bilateral cataract removal and intraocular lens implants, 3 back fusions of L4-5, aortic valve replacement with bovine at [facility] July 2016, right total knee arthroplasty Past Anesthesia/Blood Transfusion Reactions: No Reported Reaction Past Psychological History: No Psychological Hx Reported Smoking Status: Former smoker Past Alcohol Use History: Daily, Occasional Additional Past Alcohol Use History / Comment(s): patient smoked for 4 years and quit in 1960. Patient has traveled extensively throughout [place], [place], [place], [place], [place] and etc. He states all immunizations have been up to date for travel. 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 His last travel was last summer to [place]. 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 He currently lives at home with his who is [place] and 2 children. Past Drug Use History: None Reported - Past Family History Father Family Medical History: Cancer Mother Family Medical History: No Reported History Medications and Allergies Home Medications Medication Instructions Recorded Confirmed Type Allopurinol [Zyloprim] 200 mg PO DAILY 01/25/17 01/25/17 History Clarithromycin [Clarithromycin ER] 500 mg PO DIRECTED 01/25/17 01/25/17 History Ferrous Sulfate [Feosol] 325 mg PO DAILY 01/25/17 01/25/17 History Hydrocodone/Acetaminophen [[place] 1 tab PO Q6H PRN 01/25/17 01/25/17 History 10-325] Krill Oil 500 mg PO DAILY 01/25/17 01/25/17 History Lansoprazole 30 mg PO DAILY 01/25/17 01/25/17 History Metoprolol Tartrate 25 mg PO BID 01/25/17 01/25/17 History Simvastatin [Zocor] 20 mg PO HS 01/25/17 01/25/17 History Warfarin [Coumadin] 5 mg PO DAILY 01/25/17 01/25/17 History Allergies Allergy/AdvReac Type Severity Reaction Status Date / Time No Known Allergies Allergy Verified 01/25/17 12:16 Physical Exam Vitals: Vital Signs Temp Pulse Pulse Pulse Resp BP BP 01/26/17 11:47 67 16 01/26/17 11:23 97.6 F 67 16 124/69 01/26/17 09:14 84 155/72 01/26/17 08:45 84 16 01/26/17 08:10 74 18 01/26/17 07:54 98.8 F 64 18 127/66 01/26/17 04:00 98.9 F 66 66 18 129/70 01/26/17 00:00 98.4 F 75 18 123/74 01/25/17 20:00 97.6 F 63 18 136/72 01/25/17 19:08 81 01/25/17 18:02 97.1 F L 80 18 121/68 01/25/17 17:09 68 18 108/55 01/25/17 16:39 61 121/81 01/25/17 16:09 75 126/61 01/25/17 15:39 92 150/88 01/25/17 15:21 97.7 F 81 130/74 01/25/17 15:09 74 18 134/63 Pulse Ox 01/26/17 11:47 01/26/17 11:23 99 01/26/17 09:14 01/26/17 08:45 01/26/17 08:10 01/26/17 07:54 96 01/26/17 04:00 99 01/26/17 00:00 98 01/25/17 20:00 97 01/25/17 19:08 01/25/17 18:02 98 01/25/17 17:09 99 01/25/17 16:39 01/25/17 16:09 01/25/17 15:39 01/25/17 15:21 98 01/25/17 15:09 99 Intake and Output 01/25/17 01/26/17 01/26/17 22:59 06:59 14:59 Intake Total 900 0 Balance 900 0 Intake: Oral 900 0 Other: Voiding Method Toilet Toilet Toilet Urinal Urinal Urinal # Voids 1 2 Weight 75.75 kg 77 kg GENERAL: Pt awake and alert, well-appearing, well-nourished, and in no acute distress. HEAD: Atraumatic, normocephalic. EYES: Pupils equal, round, and reactive to light, extraocular movements intact, sclera anicteric, conjunctiva are normal. ENT: Oropharynx clear without exudates. Moist mucous membranes. Tongue smooth, pink, no lesions, protrudes in midline. NECK:Normal range of motion, supple without lymphadenopathy or JVD. No carotid bruits. Thyroid midline, small and firm without palpable masses. LUNGS: Breath sounds clear to auscultation bilaterally. No wheezes, rales, or rhonchi. HEART: Heart S1, S2, no S3 or S4. Irregularly irregular. No murmurs, rubs or gallops. ABDOMEN: Soft, nontender, nondistended, normoactive bowel sounds. No guarding, no rebound. No masses or organomegaly appreciated. EXTREMITIES: Palpable peripheral pulses. No edema, clubbing or cyanosis. No calf tenderness. NEUROLOGICAL: Pt oriented x 3. Cranial nerves II through XII grossly intact. Strength and sensation grossly intact. PSYCH: Normal mood, normal affect. SKIN: Warm, dry, intact. Normal turgor. No rashes or lesions. Results CBC & Chem 7: 01/26/17 08:32 01/26/17 08:32 Labs: Abnormal Lab Results - Last 24 Hours (Table) 01/25/17 01/25/17 01/25/17 Range/Units 17:34 20:44 23:20 RBC (4.30-5.90) m/uL Hgb (13.0-17.5) gm/dL Hct (39.0-53.0) % RDW (11.5-15.5) % Plt Count (150-450) k/uL Neutrophils # (1.3-7.7) k/uL Lymphocytes # (1.0-4.8) k/uL PT (9.0-12.0) sec D-Dimer (<0.60) mg/L FEU Sodium (137-145) mmol/L BUN (9-20) mg/dL POC Glucose (mg/dL) 112 H (75-99) mg/dL CK-MB (CK-2) 3.6 H* 3.3 H* (0.0-2.4) ng/mL Troponin I 0.084 H* 0.044 H* (0.000-0.034) ng/mL C-Reactive Protein (<10.0) mg/L Prealbumin (18-36) mg/dL 01/26/17 01/26/17 01/26/17 Range/Units 05:33 08:32 08:32 RBC 3.73 L (4.30-5.90) m/uL Hgb 11.1 L (13.0-17.5) gm/dL Hct 35.4 L (39.0-53.0) % RDW 17.8 H (11.5-15.5) % Plt Count 122 L (150-450) k/uL Neutrophils # 8.6 H (1.3-7.7) k/uL Lymphocytes # 0.6 L (1.0-4.8) k/uL PT 19.3 H (9.0-12.0) sec D-Dimer 2.57 H (<0.60) mg/L FEU Sodium (137-145) mmol/L BUN (9-20) mg/dL POC Glucose (mg/dL) 120 H (75-99) mg/dL CK-MB (CK-2) (0.0-2.4) ng/mL Troponin I (0.000-0.034) ng/mL C-Reactive Protein (<10.0) mg/L Prealbumin (18-36) mg/dL 01/26/17 01/26/17 01/26/17 Range/Units 08:32 08:32 11:34 RBC (4.30-5.90) m/uL Hgb (13.0-17.5) gm/dL Hct (39.0-53.0) % RDW (11.5-15.5) % Plt Count (150-450) k/uL Neutrophils # (1.3-7.7) k/uL Lymphocytes # (1.0-4.8) k/uL PT (9.0-12.0) sec D-Dimer (<0.60) mg/L FEU Sodium 136 L (137-145) mmol/L BUN 36 H (9-20) mg/dL POC Glucose (mg/dL) 141 H (75-99) mg/dL CK-MB (CK-2) (0.0-2.4) ng/mL Troponin I (0.000-0.034) ng/mL C-Reactive Protein 316.5 H (<10.0) mg/L Prealbumin 11 L (18-36) mg/dL Chest x-ray: report reviewed Thrombosis Risk Factor Assmnt - DVT/VTE Prophylaxis DVT/VTE Prophylaxis: Pharmacologic Prophylaxis ordered, Mechanical Prophylaxis ordered - Choose All That Apply Each Risk Factor Represents 3 Points: Age 75 years or older Thrombosis Risk Factor Assessment Total Risk Factor Score: 3 Thrombosis Risk Factor Assessment Level: Moderate Risk Assessment and Plan Plan: Impression and plan: 1. Acute back pain and pleurisy, present on admission, with history of fevers prior to admission with preliminary blood cultures positive for gram positive cocci in pairs and chains with possible differential diagnosis of endocarditis or other infectious process. Dr. Quinones from infectious disease service is following patient, recommendations noted. Patient is currently on IV vancomycin and IV ceftriaxone to cover for staph and strep. Repeat blood cultures have been ordered. ISIDRO has been scheduled for tomorrow. Continue supportive treatment and pain management. 2. Chronic atrial fibrillation. INR subtherapeutic at 1.7 on admission. 3. Increased BUN on admission suspect secondary to secondary to dehydration with history of decreased oral intake. 4. Elevated troponin, present on admission. EKG on admission without ischemic process. 5. History of heart failure, suspect diastolic. 6. Hyperlipidemia. 7. Hypertension. 8. History of lumbar back fusion. 9. History of aortic valve replacement, bovine. 10. History of nicotine dependence. 11. Elevated d-dimer. CTA chest pending. 12. DVT prophylaxis. Continue pneumatic compression sleeves. Coumadin will be put on hold for ISIDRO tomorrow. Continue to monitor patient. Continue current medications. Continue to follow with consultants. Repeat CBC, BMP, PT/INR in a.m. The above impression and plan have been discussed and directed by Dr. Orona. Crystal GALLO acting as scribe for Dr. Orona.
[2017-01-26] MEDS: VANCOMYCIN 1,500 MG in SODIUM CHLORIDE 0.9% 250 ML IVPB SCH (16:24)
[2017-01-26 16:50] LABS: Glucose,Whole Blood 137 mg/dL (75-99)
[2017-01-26] MEDS: WARFARIN 5 MG TAB PO SCH (18:21)
[2017-01-26] MEDS: ATORVASTATIN 10 MG TAB PO SCH (19:52)
[2017-01-26 21:11] LABS: Glucose,Whole Blood 133 mg/dL (75-99)
--- NOTE | 2017-01-26 21:37 | P.CON ---
Consult Note - . Consult date: 01/26/17 Assessment/Plan:: This is a 76-year-old male that gives history of eating [place] salad last week and approximate 5-6 hours later starting having a fever up to 104. He states he had a fever of 104 for 2 days and was using ice to help it. By Monday, his temperature was down to 99. Following that, he developed lumbar back pain which is been so severe that he was not able to move and other people could not help him to move and it's gradually went up his back to the low thoracic area and now comes around under his diaphragm and is causing spasm- like pain. He denies any injuries or falls. He does have history of 3 packs fusions in the past the last one was 10 years ago and he has had no back pain since then. He also has a significant past history of aortic valve replacement with bovine at [facility] in 07/25/2016. He states he has had decreased appetite prior to that and has continued to have decreased appetite since the heart surgery. He also has history of atrial fibrillation and has been on long-term Coumadin for many years. Patient presented to [facility] emergency center was found to be afebrile, white count of 12.8, troponins were 0.097, 0.084 and 0.044. Cardiology is on consult and echocardiogram has been done. Influenza A and B are negative. Patient denies having any nasal congestion, drainage, cough, sore throat. He does state he has had body aches. Urinalysis was cloudy, blood small, nitrate and leukoesterase negative. Chest x-ray shows correlate for pulmonary venous hypertension and interstitial edema, heart failure. CAT scan of the lumbar spine with contrast shows extensive postsurgical and degenerative changes in the lumbar spine. No suspicious well formed fluid collection or abscess seen. No acute fracture. Patient has traveled extensively throughout [place], [place], [place], [place], [place] and etc. He states all immunizations have been up to date for travel. He was also stationed in [facility] in the [facility] in the 1960s as well as stationed in [facility]. His last travel was last summer to [place]. At this time, in general he is feeling improvement. He has been on vancomycin. Blood culture obtained in the ER is showing gram-positive cocci in pairs and chains. Patient does state that he has had some decreased oral intake and urine is a strong yellow color but he has not had any dysuria, frequency. Please see the consult note is dictated by nurse practitioner Mrs. Bailey Armijo Pleasant gentleman who has a fascinating history of sudden onset of illness. He does have a history of the aortic valve replacement. Consequently positive blood cultures are of great concern. The speciation of the gram-positive cocci will be helpful to determine potential origin. Streptococcus bovis or mitis will necessitate a gastrointestinal workup. Follow blood cultures have been requested. Antibiotic therapy has been with vancomycin as well as Rocephin. The patient does relate to ingesting carryout food before he became ill. As noted the cultures are showing evidence of a gram positive organism rather than gram-negative rods. Foodborne listeriosis will need to also be considered, but is noted there gram-positive cocci not gram-positive bacilli on the current exam. Cultures are process and will further help direct the therapy. I agree the evaluation, assessment and plan as dictated by nurse practitioner Mrs. Bailey Armijo.
[2017-01-27] MEDS: HYDROcodone/APAP 10-325MG 1 EACH TAB PO PRN ×3 (04:08→21:35)
[2017-01-27] MEDS: VANCOMYCIN 1,500 MG in SODIUM CHLORIDE 0.9% 250 ML IVPB SCH ×2 (06:05→18:16)
[2017-01-27] MEDS: KETOROLAC 30 MG/ML 1 ML VIAL IVP SCH ×5 (06:10→23:18)
[2017-01-27 06:33] LABS: Glucose,Whole Blood 108 mg/dL (75-99)
[2017-01-27] MEDS ORDERED: MIDAZOLAM 2 MG/2 ML VIAL ONE (07:09)
[2017-01-27] MEDS ORDERED: fentaNYL (PF) 50 MCG/ML 2 ML AMP ONE (07:09)
[2017-01-27] MEDS: BENZOCAINE SPRAY 100 APPLIC/CAN TOPICAL ONE ×2 (07:29→07:36)
[2017-01-27] MEDS ORDERED: IV FLUID CONTINUATION 350 ML IV ONE (07:30)
[2017-01-27] MEDS ORDERED: fentaNYL (PF) 50 MCG/ML 2 ML AMP IV ONE (07:37)
[2017-01-27] MEDS ORDERED: MIDAZOLAM 2 MG/2 ML VIAL IVP ONE (07:37)
[2017-01-27 08:57] LABS: INR 2.1 (<1.1); Prothrombin Time 20.3 sec (9.0-12.0)
[2017-01-27 09:03] LABS: Anion Gap 9 mmol/L; Anisocytosis Slight; Basophils % (A) 0 %; Blood Urea Nitrogen 37 mg/dL (9-20); CH 29.2; CHCM 31.5; Calcium 8.8 mg/dL (8.4-10.2); Carbon Dioxide 24 mmol/L (22-30); Chloride 100 mmol/L (98-107); Eosinophils % (A) 0 %; Glucose 104 mg/dL (74-99); HCT 32.4 % (39.0-53.0); HDW 2.57; HGB 10.4 gm/dL (13.0-17.5); Hypochromasia Slight; Luc # (Auto) 0.17; Luc % (Auto) 2; Lymphocytes # (A) 0.5 k/uL (1.0-4.8); Lymphocytes % (A) 6 %; MCH 29.8 pg (25.0-35.0); MCV 93.2 fL (80.0-100.0); Mean Platelet Volume 7.6; Monocytes # (A) 0.5 k/uL (0-1.0); Monocytes % (A) 6 %; Neutrophils % (A) 85 %; Non-African American GFR(MDRD) >60 (>60 ml/min/1.73 sqM); Potassium 4.5 mmol/L (3.5-5.1); RBC 3.48 m/uL (4.30-5.90); RDW 17.6 % (11.5-15.5); Sodium 133 mmol/L (137-145); WBC 8.3 k/uL (3.8-10.6); WBC (Perox) 8.99
[2017-01-27] MEDS: ALLOPURINOL 100 MG TAB PO SCH (09:19)
[2017-01-27] MEDS: ASPIRIN 81 MG CHEW PO SCH (09:19)
[2017-01-27] MEDS: FERROUS SULFATE 325 MG TAB PO SCH (09:19)
[2017-01-27] MEDS: METOPROLOL TARTRATE 25 MG TAB PO SCH ×2 (09:19→20:08)
[2017-01-27] MEDS: PANTOPRAZOLE 40 MG TABLET PO SCH (09:21)
[2017-01-27] MEDS: HYDROmorphone 1 MG/ML 1 ML SYRINGE IVP PRN ×2 (09:40→16:51)
[2017-01-27] MEDS: SODIUM CHLORIDE 0.9% 1,000 ML IV SCH (09:46)
[2017-01-27] MEDS ORDERED: GENTAMICIN PER PHARMACY MISCELLANE PRN (09:53)
[2017-01-27] MEDS: cefTRIAXone 2,000 MG in SODIUM CHLORIDE 0.9% 100 ML IVPB SCH (10:27)
[2017-01-27] MEDS ORDERED: BISACODYL 10 MG SUPP RECTAL STA (11:25)
[2017-01-27] MEDS: AMPICILLIN 2,000 MG in SODIUM CHLORIDE 0.9% 100 ML IVPB SCH ×3 (11:52→23:19)
--- NOTE | 2017-01-27 12:27 | ECHOT ---
DATE OF SERVICE: PROCEDURE: Transesophageal echocardiogram INDICATION: Evaluation of aortic valve. PROCEDURE: After explaining the procedure to patient as well as risks and complications, his blood pressure, heart rate and O2 saturation were monitored. The throat was sprayed with Cetacaine. He received 2 mg of intravenous Versed and 50 mcg intravenous fentanyl. After reaching moderate conscious sedation, the probe was introduced into the esophagus without difficulty. Images were obtained. Following that, the probe was removed. There were no immediate complications. FINDING: Biatrial enlargement was noted. The right atrial size is severely dilated. Spontaneous contrast was noticed in the left atrium. The left atrial appendage was normal. The mitral valve revealed mild calcification. The aortic valve is bioprosthetic valve with normal appearance. There was no evidence of vegetations. The tricuspid valve is normal. Wire was noticed in the right atrium and right ventricle. There was a filament noted on the wire in the right atrium of unknown etiology. The left ventricle size and systolic function were normal. Descending thoracic aorta revealed mild atherosclerotic changes. Contrast bubble study revealed no evidence of shunting across the interatrial septum. There was no pericardial effusion. Pulse wave and color Doppler obtained revealed mild mitral with moderate tricuspid regurgitation and moderate pulmonary hypertension. The estimated right ventricular systolic pressure was 55 mmHg. There was no shunting across the interatrial septum. CONCLUSION: 1. Biatrial enlargement with spontaneous contrast in the left atrium. 2. Bioprosthetic aortic valve with normal appearance and no evidence of vegetations. 3. Normal left ventricular size and systolic function. 4. Mild calcification of the mitral valve with mild mitral regurgitation. 5. Moderate tricuspid regurgitation with moderate pulmonary hypertension. 6. A wire was noted in the right atrium and right ventricle with a filament noted on the wire in the right atrium of unknown significance. 7. Mild atherosclerotic changes of the descending thoracic aorta. 8. No shunting across the interatrial septum.
[2017-01-27] MEDS: DOCUSATE 100 MG CAP PO SCH ×2 (12:34→20:08)
--- NOTE | 2017-01-27 13:30 | P.PN ---
Subjective Patient is a 76-year-old male, patient of Dr. 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 Patient states that approximately 5-6 days ago he developed a fever of 104 that lasted 2 days. Following resolution of fever, patient developed severe lumbar back pain to the point where he was unable to get out of bed. Patient states that pain since traveled up to his thoracic spine and radiated into his chest what he described as pleuritic pain making it difficult for him to take a deep breath or move. No history of nausea, vomiting, abdominal pain, recent trauma, sick contacts. In the emergency department, patient was found to have evidence of leukocytosis with a WBC of 12.8, anemia with a hemoglobin of 11.5, INR 1.7, d-dimer elevated at 2.57, BUN 30, creatinine 0.8, total bilirubin 1.5, CK-MB 3.3, troponin 0.044, C-reactive protein 316.5, pro BNP 3890, pre-albumin 11, albumin 3.4, urinalysis with 3+ protein and small amount of blood. Influenza type A and influenza type B not detected. EKG showed atrial fibrillation with controlled ventricular rate with no ischemic changes. Chest x-ray with evidence of pulmonary venous hypertension and interstitial edema possible heart failure. Pacemaker present with leads in the right ventricle. CT of the lumbar spine without evicence of acute fracture or abscess. Echocardiogram with Doppler with evidence of moderate tricuspid regurgitation; mild to moderate pulmonary hypertension; pacemaker wires to RV and RA; preserved left ventricular systolic function with an EF between 50-55%. CTA chest with suboptimal enhancement of the segmental pulmonary arteries with consideration for pulmonary artery hypertension; ascending aortic aneurysm measuring 4.6 cm; indeterminate pulmonary nodule right middle lobe; liver with questionable nodular contour correlate for possible cirrhosis. Patient with low-grade temperature of 99 in the emergency department where blood cultures were drawn. Patient was admitted to the selective care unit with consult to cardiology. Subsequently, preliminary blood cultures with evidence of gram-positive cocci in pairs and chains. Consult was requested for Dr. Quinones from infectious disease service for IV antibiotic management. Patient underwent a ISIDRO with evidence of biatrial enlargement; no evidence of vegetations; moderate tricuspid regurgitation with moderate pulmonary hypertension; no shunting across the intra-atrial septum. Upon examination, patient states he feels better but still has pain taking a deep breath and with movement. Patient reports that his last bowel movement was 3-4 days ago and is requesting a stool softener. Patient states that his pain is moving around currently has pain in abdomen right upper quadrant, right lower quadrant, lower back, and chest. Patient reports some chills and sweats during the night, denies nausea, vomiting, or increased shortness of breath. No fevers. No evidence of leukocytosis. Objective - Vital Signs Vital signs: Vital Signs Temp 97.8 F 01/27/17 11:45 Pulse 61 01/27/17 11:45 Resp 18 01/27/17 11:45 BP 138/83 01/27/17 11:45 Pulse Ox 96 01/27/17 11:45 Intake & Output 01/26/17 01/27/17 01/27/17 18:59 06:59 18:59 Intake Total 710 800 100 Balance 710 800 100 Weight 79.2 kg Intake: IV 100 Intake, IV Titration 350 Amount Vancomycin 1,500 mg In 250 Sodium Chloride 0.9% 250 ml @ 125 mls/hr IVPB Q12H [facility] Rx#:[id number] cefTRIAXone 2,000 mg In 100 Sodium Chloride 0.9% 100 ml @ 100 mls/hr IVPB Q24HR [facility] Rx#:[id number] Oral 360 800 Other: Voiding Method Toilet Toilet Toilet Urinal Urinal Urinal # Voids 2 1 - Exam GENERAL: Pt awake and alert, well-appearing, well-nourished, and in no acute distress. HEAD: Atraumatic, normocephalic. EYES: Pupils equal, round, and reactive to light, extraocular movements intact, sclera anicteric, conjunctiva are normal. ENT: Oropharynx clear without exudates. Moist mucous membranes. NECK:Normal range of motion, supple without lymphadenopathy or JVD. No carotid bruits. Thyroid midline, small and firm without palpable masses. LUNGS: Breath sounds clear to auscultation bilaterally. No wheezes, rales, or rhonchi. HEART: Heart S1, S2, no S3 or S4. Irregularly irregular. No murmurs, rubs or gallops. ABDOMEN: Soft, mild right upper and lower quadrant tenderness, nondistended, normoactive bowel sounds. No guarding, no rebound. No masses or organomegaly appreciated. EXTREMITIES: Palpable peripheral pulses. No edema. No calf tenderness. NEUROLOGICAL: Pt oriented x 3. Cranial nerves II through XII grossly intact. Strength and sensation grossly intact. PSYCH: Normal mood, normal affect. SKIN: Warm, dry, intact. Normal turgor. No rashes or lesions. - Labs CBC & Chem 7: 01/27/17 05:45 01/27/17 05:45 Labs: Abnormal Lab Results - Last 24 Hours (Table) 01/26/17 01/26/17 01/26/17 Range/Units 08:32 16:39 20:50 RBC (4.30-5.90) m/uL Hgb (13.0-17.5) gm/dL Hct (39.0-53.0) % RDW (11.5-15.5) % Plt Count (150-450) k/uL Lymphocytes # (1.0-4.8) k/uL ESR (0-15) mm/hr PT (9.0-12.0) sec Sodium (137-145) mmol/L BUN (9-20) mg/dL Glucose (74-99) mg/dL POC Glucose (mg/dL) 137 H 133 H (75-99) mg/dL C-Reactive Protein 316.5 H (<10.0) mg/L Prealbumin 11 L (18-36) mg/dL 01/27/17 01/27/17 01/27/17 Range/Units 05:45 05:45 05:45 RBC 3.48 L (4.30-5.90) m/uL Hgb 10.4 L (13.0-17.5) gm/dL Hct 32.4 L (39.0-53.0) % RDW 17.6 H (11.5-15.5) % Plt Count 122 L (150-450) k/uL Lymphocytes # 0.5 L (1.0-4.8) k/uL ESR 83 H (0-15) mm/hr PT (9.0-12.0) sec Sodium 133 L (137-145) mmol/L BUN 37 H (9-20) mg/dL Glucose 104 H (74-99) mg/dL POC Glucose (mg/dL) (75-99) mg/dL C-Reactive Protein (<10.0) mg/L Prealbumin (18-36) mg/dL 01/27/17 01/27/17 Range/Units 05:45 06:29 RBC (4.30-5.90) m/uL Hgb (13.0-17.5) gm/dL Hct (39.0-53.0) % RDW (11.5-15.5) % Plt Count (150-450) k/uL Lymphocytes # (1.0-4.8) k/uL ESR (0-15) mm/hr PT 20.3 H (9.0-12.0) sec Sodium (137-145) mmol/L BUN (9-20) mg/dL Glucose (74-99) mg/dL POC Glucose (mg/dL) 108 H (75-99) mg/dL C-Reactive Protein (<10.0) mg/L Prealbumin (18-36) mg/dL Microbiology - Last 24 Hours (Table) 01/26/17 09:15 Blood Culture Gram Stain - Preliminary Blood 01/26/17 08:32 Blood Culture Gram Stain - Preliminary Blood 01/26/17 09:15 Blood Culture - Preliminary Blood 01/26/17 08:32 Blood Culture - Preliminary Blood 01/26/17 11:48 Urine Culture - Preliminary Urine,Clean Catch Assessment and Plan Plan: Impression and plan: 1. Acute back pain and pleurisy, present on admission, with history of fevers prior to admission with preliminary blood cultures positive for gram positive cocci in pairs and chains, etiology unknown. Dr. Quinones from infectious disease service is following patient, recommendations noted. Patient is currently on IV vancomycin, IV gentamycin, and IV ampicillin at this time. Repeat blood cultures in process. ISIDRO negative for vegetation. Continue supportive treatment and pain management. Consider bowel workup, await Dr. Quinones recommendations. 2. Chronic atrial fibrillation. INR subtherapeutic at 1.7 on admission. INR 2.1 today. Continue Coumadin. 3. Increased BUN on admission suspect secondary to secondary to dehydration with history of decreased oral intake. 4. Elevated troponin, present on admission. EKG on admission without ischemic process. 5. History of heart failure, suspect diastolic. Cardiology consult in place. Recommendations noted. 6. Hyperlipidemia. 7. Hypertension. 8. History of lumbar back fusion. 9. History of aortic valve replacement, bovine. 10. History of nicotine dependence. 11. Elevated d-dimer. CTA chest with no evidence for pulmonary embolism. 12. Ascending aortic aneurysm measuring approximately 4.6 cm. 13. Nodular density within the right middle lobe measuring 5 mm that is noncalcified. 14. Liver with questionable nodular contour with possible cirrhosis. 15. Constipation. 16. Pulmonary artery hypertension. 17. DVT prophylaxis. Continue pneumatic compression sleeves. Continue to monitor patient. Continue current medications. Continue to follow with consultants. Repeat CBC, BMP, PT/INR in a.m. The above impression and plan have been discussed and directed by Dr. Orona. Crystal GALLO acting as scribe for Dr. Orona.
[2017-01-27] MEDS: GENTAMICIN 70 MG in SODIUM CHLORIDE 0.9% 100 ML IVPB SCH ×2 (15:19→21:36)
[2017-01-27] MEDS ORDERED: VANCOMYCIN TROUGH DUE 1 EACH MISC MISCELLANE ONE (17:00)
--- NOTE | 2017-01-27 17:25 | P.PN ---
Subjective Principal diagnosis: Weakness This is a 76-year-old male that gives history of eating Urdu salad last week and approximate 5-6 hours later starting having a fever up to 104. He states he had a fever of 104 for 2 days and was using ice to help it. By Monday, his temperature was down to 99. Following that, he developed lumbar back pain which is been so severe that he was not able to move and other people could not help him to move and it's gradually went up his back to the low thoracic area and now comes around under his diaphragm and is causing spasm- like pain. He denies any injuries or falls. He does have history of 3 packs fusions in the past the last one was 10 years ago and he has had no back pain since then. He also has a significant past history of aortic valve replacement with bovine at [facility] in 07/25/2016. He states he has had decreased appetite prior to that and has continued to have decreased appetite since the heart surgery. He also has history of atrial fibrillation and has been on long-term Coumadin for many years. Patient presented to [facility] emergency center was found to be afebrile, white count of 12.8, troponins were 0.097, 0.084 and 0.044. Cardiology is on consult and echocardiogram has been done. Influenza A and B are negative. Patient denies having any nasal congestion, drainage, cough, sore throat. He does state he has had body aches. Urinalysis was cloudy, blood small, nitrate and leukoesterase negative. Chest x-ray shows correlate for pulmonary venous hypertension and interstitial edema, heart failure. CAT scan of the lumbar spine with contrast shows extensive postsurgical and degenerative changes in the lumbar spine. No suspicious well formed fluid collection or abscess seen. No acute fracture. Patient has traveled extensively throughout [place], [place], [place], [place], [place] and etc. He states all immunizations have been up to date for travel. He was also stationed in [facility] in the [facility] in the 1960s as well as stationed in [facility]. His last travel was last summer to [place]. At this time, in general he is feeling improvement. He has been on vancomycin. Blood culture obtained in the ER is showing gram-positive cocci in pairs and chains. Patient does state that he has had some decreased oral intake and urine is a strong yellow color but he has not had any dysuria, frequency. Is noted patient evidence of bacteremia. Gram-positive cocci were seen. Concerns were with strep infection given the Gram stain but also concerns of possible staph. And given his ingestion of food that could've been contaminated was concerns for listeriosis although Gram stain showed gram- positive cocci not gram-positive bacilli. Cultures coming back positive for enterococcus. Objective - Vital Signs Vital signs: Vital Signs Temp 97.8 F 01/27/17 11:45 Pulse 61 01/27/17 11:45 Resp 18 01/27/17 11:45 BP 138/83 01/27/17 11:45 Pulse Ox 96 01/27/17 11:45 Intake & Output 01/26/17 01/27/17 01/27/17 18:59 06:59 18:59 Intake Total 710 800 336 Balance 710 800 336 Weight 79.2 kg Intake: IV 100 Intake, IV Titration 350 Amount Vancomycin 1,500 mg In 250 Sodium Chloride 0.9% 250 ml @ 125 mls/hr IVPB Q12H [facility] Rx#:[id number] cefTRIAXone 2,000 mg In 100 Sodium Chloride 0.9% 100 ml @ 100 mls/hr IVPB Q24HR [facility]STOPHER Rx#:[id number] Oral 360 800 236 Other: Voiding Method Toilet Toilet Toilet Urinal Urinal Urinal # Voids 2 1 2 - Exam Gen: This is a 76-year-old male. He is found in bed and appears to be in no acute distress. HEENT: Head is atraumatic, normocephalic. Pupils equal, round. Sclerae is anicteric. conjunctiva pink. Mucous members of the mouth are moist. No thrush noted. Dentition is in fair order for age. NECK: Supple. No JVD. No lymphadenopathy. No thyromegaly. LUNGS: Clear to auscultation. No wheezes or rhonchi. No intercostal retractions. HEART: Irregular. 2/6 systolic murmur. ABDOMEN: Soft. Bowel sounds are present. No masses. No tenderness. BACK: patient has mild tenderness to the low thoracic area as well as left side of the spine at approximate L4. Surgical wounds noted to the lumbar area. All are completely healed. No swollen areas, deformities noted. No rashes noted. straight leg lift is negative. Foot push pulls strong and equal bilaterally. EXTREMITIES: No pedal edema. No calf tenderness. NEUROLOGICAL: Patient is awake, alert and oriented x3. Cranial nerves 2 through 12 are grossly intact. - Labs CBC & Chem 7: 01/27/17 05:45 01/27/17 05:45 Labs: Abnormal Lab Results - Last 24 Hours (Table) 01/26/17 01/27/17 01/27/17 Range/Units 20:50 05:45 05:45 RBC 3.48 L (4.30-5.90) m/uL Hgb 10.4 L (13.0-17.5) gm/dL Hct 32.4 L (39.0-53.0) % RDW 17.6 H (11.5-15.5) % Plt Count 122 L (150-450) k/uL Lymphocytes # 0.5 L (1.0-4.8) k/uL ESR 83 H (0-15) mm/hr PT (9.0-12.0) sec Sodium (137-145) mmol/L BUN (9-20) mg/dL Glucose (74-99) mg/dL POC Glucose (mg/dL) 133 H (75-99) mg/dL 01/27/17 01/27/17 01/27/17 Range/Units 05:45 05:45 06:29 RBC (4.30-5.90) m/uL Hgb (13.0-17.5) gm/dL Hct (39.0-53.0) % RDW (11.5-15.5) % Plt Count (150-450) k/uL Lymphocytes # (1.0-4.8) k/uL ESR (0-15) mm/hr PT 20.3 H (9.0-12.0) sec Sodium 133 L (137-145) mmol/L BUN 37 H (9-20) mg/dL Glucose 104 H (74-99) mg/dL POC Glucose (mg/dL) 108 H (75-99) mg/dL Microbiology - Last 24 Hours (Table) 01/26/17 11:48 Urine Culture - Preliminary Urine,Clean Catch Group D Enterococcus 01/26/17 09:15 Blood Culture Gram Stain - Preliminary Blood 01/26/17 08:32 Blood Culture Gram Stain - Preliminary Blood 01/26/17 09:15 Blood Culture - Preliminary Blood 01/26/17 08:32 Blood Culture - Preliminary Blood Laboratory Results WBC 8.3 k/uL (3.8-10.6) 01/27/17 05:45 RBC 3.48 m/uL (4.30-5.90) L 01/27/17 05:45 Hgb 10.4 gm/dL (13.0-17.5) L 01/27/17 05:45 Hct 32.4 % (39.0-53.0) L 01/27/17 05:45 MCV 93.2 fL (80.0-100.0) 01/27/17 05:45 MCH 29.8 pg (25.0-35.0) 01/27/17 05:45 MCHC 32.0 g/dL (31.0-37.0) 01/27/17 05:45 RDW 17.6 % (11.5-15.5) H 01/27/17 05:45 Plt Count 122 k/uL (150-450) L 01/27/17 05:45 Neutrophils % 85 % 01/27/17 05:45 Lymphocytes % 6 % 01/27/17 05:45 Monocytes % 6 % 01/27/17 05:45 Eosinophils % 0 % 01/27/17 05:45 Basophils % 0 % 01/27/17 05:45 Neutrophils # 7.0 k/uL (1.3-7.7) 01/27/17 05:45 Lymphocytes # 0.5 k/uL (1.0-4.8) L 01/27/17 05:45 Monocytes # 0.5 k/uL (0-1.0) 01/27/17 05:45 Eosinophils # 0.0 k/uL (0-0.7) 01/27/17 05:45 Basophils # 0.0 k/uL (0-0.2) 01/27/17 05:45 Hypochromasia Slight 01/27/17 05:45 Anisocytosis Slight 01/27/17 05:45 ESR 83 mm/hr (0-15) H 01/27/17 05:45 PT 20.3 sec (9.0-12.0) H 01/27/17 05:45 INR 2.1 (<1.1) 01/27/17 05:45 APTT 33.4 sec (22.0-30.0) H 01/25/17 14:00 D-Dimer 2.57 mg/L FEU (<0.60) H 01/26/17 08:32 Sodium 133 mmol/L (137-145) L 01/27/17 05:45 Potassium 4.5 mmol/L (3.5-5.1) 01/27/17 05:45 Chloride 100 mmol/L (98-107) 01/27/17 05:45 Carbon Dioxide 24 mmol/L (22-30) 01/27/17 05:45 Anion Gap 9 mmol/L 01/27/17 05:45 BUN 37 mg/dL (9-20) H 01/27/17 05:45 Creatinine 0.90 mg/dL (0.66-1.25) 01/27/17 05:45 Est GFR (MDRD) Af Amer >60 (>60 ml/min/1.73 sqM) 01/27/17 05:45 Est GFR (MDRD) Non-Af >60 (>60 ml/min/1.73 sqM) 01/27/17 05:45 Glucose 104 mg/dL (74-99) H 01/27/17 05:45 POC Glucose (mg/dL) 108 mg/dL (75-99) H 01/27/17 06:29 POC Glu Learning And Development Manager KANIKA Dung Dumont 01/27/17 06:29 Plasma Lactic Acid Francisco Javier 1.0 mmol/L (0.7-2.0) 01/25/17 11:35 Calcium 8.8 mg/dL (8.4-10.2) 01/27/17 05:45 Total Bilirubin 1.5 mg/dL (0.2-1.3) H 01/25/17 11:35 AST 38 U/L (17-59) 01/25/17 11:35 ALT 49 U/L (21-72) 01/25/17 11:35 Alkaline Phosphatase 105 U/L (38-126) 01/25/17 11:35 Total Creatine Kinase 56 U/L (55-170) 01/25/17 23:20 CK-MB (CK-2) 3.3 ng/mL (0.0-2.4) H* 01/25/17 23:20 CK-MB (CK-2) Rel Index 5.9 01/25/17 23:20 Troponin I 0.044 ng/mL (0.000-0.034) H* 01/25/17 23:20 C-Reactive Protein 316.5 mg/L (<10.0) H 01/26/17 08:32 NT-Pro-B Natriuret Pep 3890 pg/mL 01/26/17 08:32 Total Protein 6.6 g/dL (6.3-8.2) 01/25/17 11:35 Albumin 3.4 g/dL (3.5-5.0) L 01/25/17 11:35 Prealbumin 11 mg/dL (18-36) L 01/26/17 08:32 Triglycerides 53 mg/dL (<150) 01/25/17 11:32 Cholesterol 107 mg/dL (<200) 01/25/17 11:32 LDL Cholesterol, Calc 30 mg/dL (0-99) 01/25/17 11:32 HDL Cholesterol 66 mg/dL (40-60) H 01/25/17 11:32 Urine Color Yellow 01/25/17 11:38 Urine Appearance Cloudy (Clear) 01/25/17 11:38 Urine pH 5.5 (5.0-8.0) 01/25/17 11:38 Ur Specific Hawley 1.017 (1.001-1.035) 01/25/17 11:38 Urine Protein 3+ (Negative) H 01/25/17 11:38 Urine Glucose (UA) Negative (Negative) 01/25/17 11:38 Urine Ketones Negative (Negative) 01/25/17 11:38 Urine Blood Small (Negative) H 01/25/17 11:38 Urine Nitrite Negative (Negative) 01/25/17 11:38 Urine Bilirubin Negative (Negative) 01/25/17 11:38 Urine Urobilinogen 3.0 mg/dL (<2.0) 01/25/17 11:38 Ur Leukocyte Esterase Negative (Negative) 01/25/17 11:38 Urine RBC 1 /hpf (0-5) 01/25/17 11:38 Urine WBC 4 /hpf (0-5) 01/25/17 11:38 Granular Casts 10 /lpf (0) 01/25/17 11:38 Urine Mucus Rare /hpf (None) H 01/25/17 11:38 Influenza Type A RNA Not Detected (Not Detectd) 01/25/17 11:35 Influenza Type B (PCR) Not Detected (Not Detectd) 01/25/17 11:35 Microbiology 01/26/17 11:48 Urine,Clean Catch Urine Culture - Preliminary Group D Enterococcus 01/26/17 09:15 Blood Blood Culture Gram Stain - Preliminary 01/26/17 08:32 Blood Blood Culture Gram Stain - Preliminary 01/26/17 09:15 Blood Blood Culture - Preliminary 01/26/17 08:32 Blood Blood Culture - Preliminary 01/25/17 11:35 Blood Blood Culture Gram Stain - Preliminary 01/25/17 11:35 Blood Blood Culture - Preliminary Group D Enterococcus 01/25/17 11:35 Blood Blood Culture - Preliminary Assessment and Plan (1) Atrial fibrillation Narrative/Plan: 76-year-old who has a history of aortic valve replacement. Has been doing relatively well until the sudden onset of the febrile illness. This was with significant pain in his lower back. Imaging studies were done including a computed tomography scan failed reveal evidence of an abscess to the spine or to the musculature of the spine. Did not reveal evidence of any abscess to the colon or retroperitoneal structures. Patient is feeling somewhat better is now having some ongoing pain at that site. Well treated with current Dilaudid dose. He otherwise is feeling somewhat better. The fevers and chills have definitely improved. Does feel better than admission. We discussed that enterococcus is the nicely from his blood which is of great concern given his history of the aortic valve replacement. Transesophageal echocardiogram was performed. Negative for evidence of any vegetations. Valve function was normal no evidence of any other concerns were noted on the echocardiogram and other valves. Consulate follow blood cultures are requested until there is clearance of his bacteremia. Antibiotic therapy was altered to ampicillin plus gentamicin while final cultures are pending. No evidence of Listeria or other bacterial infection at this time. Leukocytosis has improved Back pain is improved but not resolved. Etiology of the bacteremia could be related to the urinary system given that the urine culture showing evidence of the enterococcus also. Imaging studies of the kidneys will be requested. PSA also requested and that prosthetic infection would also have to be considered. Status: Acute
[2017-01-27] MEDS: WARFARIN 5 MG TAB PO SCH (18:18)
[2017-01-27] MEDS: ATORVASTATIN 10 MG TAB PO SCH (20:07)
[2017-01-27 20:40] LABS: Glucose,Whole Blood 131 mg/dL (75-99)
--- NOTE | 2017-01-27 22:11 | US ---
EXAMINATION TYPE: US kidneys/renal and bladder DATE OF EXAM: 01/27/2017 9:43 PM COMPARISON: NONE CLINICAL HISTORY: pyelonephritis bacteremia; prior renal stones per patient EXAM MEASUREMENTS: Right Kidney: 14.3 x 8.6 x 8.0cm Left Kidney: 12.7 x 4.7 x 6.0cm Post Void Residual Volume: NA Right Kidney: multiple renal cysts with largest at parapelvic area = 7.2 x 6.6 x 5.0cm; hyperechoic f ocus with posterior shadowing at mid lower pole = 0.4 x 0.4 x 0.3cm. Left Kidney: multiple renal cysts with largest at upper pole = 3.1 x 3.3 x 4.1cm Bladder: wnl, not fully distended as had just voided half hour prior to US Bilateral Jets seen: Yes Normal Post Void Residual: not assessed on inpatient IMPRESSION: There are multiple bilateral renal cysts and in particular a large right-sided parapelvic cyst. There are bilateral ureteral jets and no evidence of obstruction. No solid renal mass.
[2017-01-28] MEDS: GENTAMICIN 70 MG in SODIUM CHLORIDE 0.9% 100 ML IVPB SCH ×3 (04:21→18:03)
[2017-01-28] MEDS: AMPICILLIN 2,000 MG in SODIUM CHLORIDE 0.9% 100 ML IVPB SCH ×4 (05:31→23:31)
[2017-01-28] MEDS: VANCOMYCIN 1,500 MG in SODIUM CHLORIDE 0.9% 250 ML IVPB SCH (06:43)
[2017-01-28 06:51] LABS: Glucose,Whole Blood 92 mg/dL (75-99)
[2017-01-28] MEDS: PANTOPRAZOLE 40 MG TABLET PO SCH (07:03)
[2017-01-28] MEDS: KETOROLAC 30 MG/ML 1 ML VIAL IVP SCH ×4 (07:03→23:31)
[2017-01-28 08:08] LABS: Anisocytosis Slight; Basophils % (A) 0 %; CH 29.3; CHCM 31.4; Eosinophils # (A) 0.1 k/uL (0-0.7); Eosinophils % (A) 1 %; HCT 32.2 % (39.0-53.0); HDW 2.57; HGB 10.3 gm/dL (13.0-17.5); Hypochromasia Slight; Luc # (Auto) 0.17; Luc % (Auto) 3; Lymphocytes # (A) 0.6 k/uL (1.0-4.8); Lymphocytes % (A) 10 %; MCH 29.8 pg (25.0-35.0); MCHC 31.8 g/dL (31.0-37.0); MCV 93.5 fL (80.0-100.0); Mean Platelet Volume 8.3; Monocytes # (A) 0.3 k/uL (0-1.0); Monocytes % (A) 6 %; Neutrophils % (A) 81 %; RBC 3.45 m/uL (4.30-5.90); RDW 17.7 % (11.5-15.5); WBC 6.2 k/uL (3.8-10.6); WBC (Perox) 6.64
[2017-01-28 08:13] LABS: INR 2.8 (<1.1); Prothrombin Time 27.2 sec (9.0-12.0)
[2017-01-28 08:25] LABS: Anion Gap 12 mmol/L; Blood Urea Nitrogen 33 mg/dL (9-20); Calcium 8.4 mg/dL (8.4-10.2); Carbon Dioxide 22 mmol/L (22-30); Chloride 103 mmol/L (98-107); Glucose 87 mg/dL (74-99); Non-African American GFR(MDRD) >60 (>60 ml/min/1.73 sqM); Potassium 4.7 mmol/L (3.5-5.1); Sodium 137 mmol/L (137-145)
[2017-01-28] MEDS: ALLOPURINOL 100 MG TAB PO SCH (09:02)
[2017-01-28] MEDS: METOPROLOL TARTRATE 25 MG TAB PO SCH ×2 (09:03→20:09)
[2017-01-28] MEDS: FERROUS SULFATE 325 MG TAB PO SCH (09:03)
[2017-01-28] MEDS: DOCUSATE 100 MG CAP PO SCH ×2 (09:03→20:09)
[2017-01-28] MEDS: ASPIRIN 81 MG CHEW PO SCH (09:03)
[2017-01-28] MEDS: HYDROcodone/APAP 10-325MG 1 EACH TAB PO PRN ×2 (09:08→19:18)
[2017-01-28] MEDS: SODIUM CHLORIDE 0.9% 1,000 ML IV SCH (09:09)
--- NOTE | 2017-01-28 10:59 | P.PN ---
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 He's been doing relatively well until just 4 days ago with a sudden onset of febrile illness. Patient initially started with significant pain in his lower back. Imaging studies performed include computed tomography scan failed to reveal evidence of abscess to the spine or musculature of the spine. Patient did not reveal any evidence of abscess to call in a retroperitoneal structures. Patient is feeling better in fact had a excellent visit with him both yesterday and today and he actually states he developed to go home although. We're not quite ready for that. Due to the fact that we haven't quite isolated the source of his bacteremia. He is feeling much better. Fever and chills have all but resolved. And certainly he feels better than admission. Currently cultures blood cultures are consistent with enterococcus and urine cultures as well. She should and underwent echocardiogram which was relatively normal. A ISIDRO was also performed which was negative for any vegetations valve function was normal no evidence of other concerns on the ISIDRO were noted. Patient initially was placed on IV vancomycin and Rocephin until the culture identified enterococcus currently he is on amp and gent ulcers are final at this point in time enterococcus in the urine enterococcus in the blood. His ultrasound of the kidney ureter bladder suggestive of multiple cysts in the kidneys otherwise no obstruction. At this point in time might consider the prostate as a possible source of the infection especially as his back pain is improved but not resolved . The PSA was not ordered to rule out prostate is source of the infection will obtain that as well his sed rate is currently 83, however patient does have gout and arthritis as well. Overall patient is improving significantly just waiting on identification of the source of the infection Objective - Vital Signs Vital signs: Vital Signs Temp 97.2 F L 01/28/17 08:00 Pulse 60 01/28/17 08:00 Resp 18 01/28/17 08:00 BP 157/74 01/28/17 08:00 Pulse Ox 98 01/28/17 08:00 Intake & Output 01/27/17 01/28/17 01/28/17 18:59 06:59 18:59 Intake Total 336 Balance 336 Weight 79.5 kg Intake: IV 100 Oral 236 Other: Voiding Method Toilet Toilet Urinal Urinal # Voids 2 1 - Exam General: [Patient awake, alert and oriented times 3. Patient in no acute distress.] HEENT: [PERRL. EOMI. No pharyngeal erythema or exudate.] Neck: [No adenopathy.] Cardiac: [Heart regular in rate and rhythm. No S3. No S4. No clicks, rubs. No murmur.] Lungs: [Clear to auscultation bilaterally.] Abdomen: [No mass. No organomegaly. Bowel sounds presnt and normoactive in all 4 quadrants.] Extremes: [No edema no cyanosis no claudication normal pulses] : [] Musculoskeletal: [No joint erythema, edema or tenderness.] Skin: [No rash.] Neurologic: [No lateralizing deficits. CN II - XII grossly intact.] Lymphatic: [No adenopathy.] - Labs CBC & Chem 7: 01/28/17 06:24 01/28/17 06:24 Labs: Abnormal Lab Results - Last 24 Hours (Table) 01/27/17 01/27/17 01/28/17 Range/Units 05:45 20:14 06:24 RBC 3.45 L (4.30-5.90) m/uL Hgb 10.3 L (13.0-17.5) gm/dL Hct 32.2 L (39.0-53.0) % RDW 17.7 H (11.5-15.5) % Plt Count 126 L (150-450) k/uL Lymphocytes # 0.6 L (1.0-4.8) k/uL ESR 83 H (0-15) mm/hr PT (9.0-12.0) sec BUN (9-20) mg/dL POC Glucose (mg/dL) 131 H (75-99) mg/dL 01/28/17 01/28/17 Range/Units 06:24 06:24 RBC (4.30-5.90) m/uL Hgb (13.0-17.5) gm/dL Hct (39.0-53.0) % RDW (11.5-15.5) % Plt Count (150-450) k/uL Lymphocytes # (1.0-4.8) k/uL ESR (0-15) mm/hr PT 27.2 H (9.0-12.0) sec BUN 33 H (9-20) mg/dL POC Glucose (mg/dL) (75-99) mg/dL Microbiology - Last 24 Hours (Table) 01/26/17 08:32 Blood Culture Gram Stain - Preliminary Blood Blood Culture - Preliminary Group D Enterococcus 01/26/17 09:15 Blood Culture Gram Stain - Preliminary Blood Blood Culture - Preliminary Group D Enterococcus 01/26/17 11:48 Urine Culture - Preliminary Urine,Clean Catch Group D Enterococcus 01/26/17 09:15 Blood Culture - Preliminary Blood 01/26/17 08:32 Blood Culture - Preliminary Blood Assessment and Plan (1) Atrial fibrillation Narrative/Plan: Well-controlled with current meds, patient also on Coumadin secondary to aortic valve replacement inr 2.8 Status: Acute (2) Elevated troponin Narrative/Plan: Cardiology is quite aware and all agree is probably secondary to stress mildly elevated troponins Status: Acute (3) Intractable low back pain Narrative/Plan: Sed rate is 83 back pain consistent with previous back surgeries patient also has infectious process possibly secondary to prostatitis has had significant febrile illness currently on gentle and amp, feeling much better tolerating diet much better and continuing to improve PSA has been ordered recent ultrasound of kidneys ureter and bladder shows no obstruction and multiple renal cysts bilaterally Status: Acute Plan: Continue IV antibiotic therapy, infectious disease is been very aggressive and treating Mr. Solitario patient has been improving nicely Time with Patient: Greater than 30
[2017-01-28 11:56] LABS: Glucose,Whole Blood 102 mg/dL (75-99)
[2017-01-28] MEDS ORDERED: GENTAMICIN TROUGH DUE 1 EACH MISC MISCELLANE ONE (12:30)
[2017-01-28] MEDS ORDERED: GENTAMICIN PEAK DUE 1 EACH MISC MISCELLANE ONE (14:30)
[2017-01-28 16:29] LABS: Glucose,Whole Blood 99 mg/dL (75-99)
[2017-01-28] MEDS: WARFARIN 5 MG TAB PO SCH (18:04)
[2017-01-28] MEDS: HYDROmorphone 1 MG/ML 1 ML SYRINGE IVP PRN ×2 (20:05→22:45)
[2017-01-28] MEDS: ATORVASTATIN 10 MG TAB PO SCH (20:09)
[2017-01-28 20:54] LABS: Glucose,Whole Blood 165 mg/dL (75-99)
[2017-01-29] MEDS: HYDROmorphone 1 MG/ML 1 ML SYRINGE IVP PRN ×2 (02:11→15:40)
[2017-01-29] MEDS: AMPICILLIN 2,000 MG in SODIUM CHLORIDE 0.9% 100 ML IVPB SCH ×4 (05:38→23:38)
[2017-01-29 06:18] LABS: Glucose,Whole Blood 100 mg/dL (75-99)
[2017-01-29] MEDS: PANTOPRAZOLE 40 MG TABLET PO SCH (06:42)
[2017-01-29] MEDS: GENTAMICIN 70 MG in SODIUM CHLORIDE 0.9% 100 ML IVPB SCH ×2 (06:42→17:41)
[2017-01-29] MEDS: KETOROLAC 30 MG/ML 1 ML VIAL IVP SCH ×2 (06:43→16:56)
[2017-01-29] MEDS: ALLOPURINOL 100 MG TAB PO SCH (08:42)
[2017-01-29] MEDS: ASPIRIN 81 MG CHEW PO SCH (08:42)
[2017-01-29] MEDS: METOPROLOL TARTRATE 25 MG TAB PO SCH ×2 (08:43→19:33)
[2017-01-29] MEDS: DOCUSATE 100 MG CAP PO SCH ×2 (08:43→19:33)
[2017-01-29] MEDS: FERROUS SULFATE 325 MG TAB PO SCH (08:43)
--- NOTE | 2017-01-29 11:15 | P.PN ---
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 He's been doing relatively well until just 6 days ago with a sudden onset of febrile illness. Patient initially started with significant pain in his lower back. Imaging studies performed include computed tomography scan failed to reveal evidence of abscess to the spine or musculature of the spine. Patient did not reveal any evidence of abscess to call in a retroperitoneal structures. Patient is feeling better in fact had a excellent visit with him both yesterday and today and he actually states he developed to go home although. We're not quite ready for that. Due to the fact that we haven't quite isolated the source of his bacteremia. He is feeling much better. Fever and chills have all but resolved. And certainly he feels better than admission. Currently cultures blood cultures are consistent with enterococcus and urine cultures as well. She should and underwent echocardiogram which was relatively normal. A ISIDRO was also performed which was negative for any vegetations valve function was normal no evidence of other concerns on the ISIDRO were noted. Patient initially was placed on IV vancomycin and Rocephin until the culture identified enterococcus currently he is on amp and gent ulcers are final at this point in time enterococcus in the urine enterococcus in the blood. His ultrasound of the kidney ureter bladder suggestive of multiple cysts in the kidneys otherwise no obstruction. At this point in time might consider the prostate as a possible source of the infection especially as his back pain is improved but not resolved . The PSA was ordered to rule out prostate is source of the infection will obtain that as well his sed rate is currently 83, however patient does have gout and arthritis as well. Overall patient is improving significantly just waiting on identification of the source of the infection Objective - Vital Signs Vital signs: Vital Signs Temp 98.1 F 01/29/17 09:19 Pulse 66 01/29/17 09:19 Resp 18 01/29/17 09:19 BP 159/83 01/29/17 09:19 Pulse Ox 95 01/29/17 09:19 Intake & Output 01/28/17 01/29/17 01/29/17 18:59 06:59 18:59 Intake Total 180 600 360 Balance 180 600 360 Weight 80.1 kg Intake: IV 180 Ampicillin 2,000 mg In 100 Sodium Chloride 0.9% 100 ml @ 100 mls/hr IVPB Q6HR [facility] Rx#:[id number] Sodium Chloride 0.9% 1, 80 000 ml @ 20 mls/hr IV . Q24H [facility] Rx#:[id number] Oral 600 360 Other: Voiding Method Toilet Toilet Toilet Urinal Urinal Urinal # Voids 1 - Exam General: [Patient awake, alert and oriented times 3. Patient in no acute distress.] HEENT: [PERRL. EOMI. No pharyngeal erythema or exudate.] Neck: [No adenopathy.] Cardiac: [Heart regular in rate and rhythm. No S3. No S4. No clicks, rubs. No murmur.] Lungs: [Clear to auscultation bilaterally.] Abdomen: [No mass. No organomegaly. Bowel sounds presnt and normoactive in all 4 quadrants.] Extremes: [No edema no cyanosis no claudication normal pulses] : [] Musculoskeletal: [No joint erythema, edema or tenderness.] Skin: [No rash.] Neurologic: [No lateralizing deficits. CN II - XII grossly intact.] Lymphatic: [No adenopathy.] - Labs CBC & Chem 7: 01/28/17 06:24 01/28/17 06:24 Labs: Abnormal Lab Results - Last 24 Hours (Table) 01/28/17 01/28/17 01/28/17 Range/Units 11:55 12:18 20:52 POC Glucose (mg/dL) 102 H 165 H (75-99) mg/dL Gentamicin Trough 2.0 H* ug/mL 01/29/17 Range/Units 06:16 POC Glucose (mg/dL) 100 H (75-99) mg/dL Gentamicin Trough ug/mL Microbiology - Last 24 Hours (Table) 01/28/17 06:24 Blood Culture - Preliminary Blood No Growth after 24 hours 01/28/17 06:37 Blood Culture - Preliminary Blood No Growth after 24 hours 01/26/17 08:32 Blood Culture Gram Stain - Final Blood Blood Culture - Final Enterococcus faecalis 01/26/17 09:15 Blood Culture Gram Stain - Final Blood Blood Culture - Final Enterococcus faecalis 01/26/17 11:48 Urine Culture - Final Urine,Clean Catch Enterococcus faecalis Assessment and Plan (1) Atrial fibrillation Narrative/Plan: Well-controlled with current meds, patient also on Coumadin secondary to aortic valve replacement inr 2.8 Status: Acute (2) Elevated troponin Narrative/Plan: Cardiology is quite aware and all agree is probably secondary to stress, mildly elevated troponins Status: Acute (3) Intractable low back pain Narrative/Plan: Sed rate is 83 back pain consistent with previous back surgeries patient also has infectious process possibly secondary to prostatitis has had significant febrile illness currently on gent and amp, feeling much better tolerating diet much better and continuing to improve PSA has been ordered recent ultrasound of kidneys ureter and bladder shows no obstruction and multiple renal cysts bilaterally Status: Acute Plan: Continue IV antibiotic therapy, infectious disease is been very aggressive and treating Mr. Solitario patient has been improving nicely Time with Patient: Greater than 30
[2017-01-29 12:00] LABS: Glucose,Whole Blood 107 mg/dL (75-99)
[2017-01-29] MEDS: SODIUM CHLORIDE 0.9% 1,000 ML IV SCH (12:55)
[2017-01-29] MEDS: HYDROcodone/APAP 10-325MG 1 EACH TAB PO PRN ×2 (12:56→19:35)
[2017-01-29 16:57] LABS: Glucose,Whole Blood 123 mg/dL (75-99)
--- NOTE | 2017-01-29 16:59 | P.PN ---
Subjective Principal diagnosis: Weakness This is a 76-year-old male that gives history of eating [place] salad last week and approximate 5-6 hours later starting having a fever up to 104. He states he had a fever of 104 for 2 days and was using ice to help it. By Monday, his temperature was down to 99. Following that, he developed lumbar back pain which is been so severe that he was not able to move and other people could not help him to move and it's gradually went up his back to the low thoracic area and now comes around under his diaphragm and is causing spasm- like pain. He denies any injuries or falls. He does have history of 3 packs fusions in the past the last one was 10 years ago and he has had no back pain since then. He also has a significant past history of aortic valve replacement with bovine at [facility] in 07/25/2016. He states he has had decreased appetite prior to that and has continued to have decreased appetite since the heart surgery. He also has history of atrial fibrillation and has been on long-term Coumadin for many years. Patient presented to [facility] emergency center was found to be afebrile, white count of 12.8, troponins were 0.097, 0.084 and 0.044. Cardiology is on consult and echocardiogram has been done. Influenza A and B are negative. Patient denies having any nasal congestion, drainage, cough, sore throat. He does state he has had body aches. Urinalysis was cloudy, blood small, nitrate and leukoesterase negative. Chest x-ray shows correlate for pulmonary venous hypertension and interstitial edema, heart failure. CAT scan of the lumbar spine with contrast shows extensive postsurgical and degenerative changes in the lumbar spine. No suspicious well formed fluid collection or abscess seen. No acute fracture. Patient has traveled extensively throughout [place], [place], [place], [place], [place] and etc. He states all immunizations have been up to date for travel. He was also stationed in [facility] in the [facility] in the 1960s as well as stationed in [facility]. His last travel was last summer to [place]. At this time, in general he is feeling improvement. He has been on vancomycin. Blood culture obtained in the ER is showing gram-positive cocci in pairs and chains. Patient does state that he has had some decreased oral intake and urine is a strong yellow color but he has not had any dysuria, frequency. Is noted patient evidence of bacteremia. Gram-positive cocci were seen. Concerns were with strep infection given the Gram stain but also concerns of possible staph. Cultures without evidence of listeria. 170 gram-negative organisms either. Cultures have shown that both the urine and the blood have evidence of enterococcus. Objective - Vital Signs Vital signs: Vital Signs Temp 98.1 F 01/29/17 09:19 Pulse 67 01/29/17 12:00 Resp 17 01/29/17 12:00 BP 146/69 01/29/17 12:00 Pulse Ox 96 01/29/17 12:00 Intake & Output 01/28/17 01/29/17 01/29/17 18:59 06:59 18:59 Intake Total 659 267 0482 Balance 150 219 7997 Weight 80.1 kg Intake: IV 180 340 Ampicillin 2,000 mg In 100 100 Sodium Chloride 0.9% 100 ml @ 100 mls/hr IVPB Q6HR [facility] Rx#:[id number] Sodium Chloride 0.9% 1, 80 240 000 ml @ 20 mls/hr IV . Q24H [facility] Rx#:[id number] Oral 600 1080 Other: Voiding Method Toilet Toilet Toilet Urinal Urinal Urinal # Voids 1 3 - Exam Gen: This is a 76-year-old male. He is found in bed and appears to be in no acute distress. HEENT: Head is atraumatic, normocephalic. Pupils equal, round. Sclerae is anicteric. conjunctiva pink. Mucous members of the mouth are moist. No thrush noted. Dentition is in fair order for age. NECK: Supple. No JVD. No lymphadenopathy. No thyromegaly. LUNGS: Clear to auscultation. No wheezes or rhonchi. No intercostal retractions. HEART: Irregular. 2/6 systolic murmur. ABDOMEN: Soft. Bowel sounds are present. No masses. No tenderness. BACK: patient has mild tenderness to the low thoracic area as well as left side of the spine at approximate L4. Surgical wounds noted to the lumbar area. All are completely healed. No swollen areas, deformities noted. No rashes noted. straight leg lift is negative. Foot push pulls strong and equal bilaterally. EXTREMITIES: No pedal edema. No calf tenderness. NEUROLOGICAL: Patient is awake, alert and oriented x3. Feeling considerably better today. - Labs CBC & Chem 7: 01/28/17 06:24 01/28/17 06:24 Labs: Abnormal Lab Results - Last 24 Hours (Table) 01/28/17 01/29/17 01/29/17 Range/Units 20:52 06:16 11:40 POC Glucose (mg/dL) 165 H 100 H 107 H (75-99) mg/dL Microbiology - Last 24 Hours (Table) 01/28/17 06:24 Blood Culture - Preliminary Blood No Growth after 24 hours 01/28/17 06:37 Blood Culture - Preliminary Blood No Growth after 24 hours 01/26/17 08:32 Blood Culture Gram Stain - Final Blood Blood Culture - Final Enterococcus faecalis 01/26/17 09:15 Blood Culture Gram Stain - Final Blood Blood Culture - Final Enterococcus faecalis 01/26/17 11:48 Urine Culture - Final Urine,Clean Catch Enterococcus faecalis Laboratory Results WBC 6.2 k/uL (3.8-10.6) 01/28/17 06:24 RBC 3.45 m/uL (4.30-5.90) L 01/28/17 06:24 Hgb 10.3 gm/dL (13.0-17.5) L 01/28/17 06:24 Hct 32.2 % (39.0-53.0) L 01/28/17 06:24 MCV 93.5 fL (80.0-100.0) 01/28/17 06:24 MCH 29.8 pg (25.0-35.0) 01/28/17 06:24 MCHC 31.8 g/dL (31.0-37.0) 01/28/17 06:24 RDW 17.7 % (11.5-15.5) H 01/28/17 06:24 Plt Count 126 k/uL (150-450) L 01/28/17 06:24 Neutrophils % 81 % 01/28/17 06:24 Lymphocytes % 10 % 01/28/17 06:24 Monocytes % 6 % 01/28/17 06:24 Eosinophils % 1 % 01/28/17 06:24 Basophils % 0 % 01/28/17 06:24 Neutrophils # 5.0 k/uL (1.3-7.7) 01/28/17 06:24 Lymphocytes # 0.6 k/uL (1.0-4.8) L 01/28/17 06:24 Monocytes # 0.3 k/uL (0-1.0) 01/28/17 06:24 Eosinophils # 0.1 k/uL (0-0.7) 01/28/17 06:24 Basophils # 0.0 k/uL (0-0.2) 01/28/17 06:24 Hypochromasia Slight 01/28/17 06:24 Anisocytosis Slight 01/28/17 06:24 ESR 83 mm/hr (0-15) H 01/27/17 05:45 PT 27.2 sec (9.0-12.0) H 01/28/17 06:24 INR 2.8 (<1.1) 01/28/17 06:24 APTT 33.4 sec (22.0-30.0) H 01/25/17 14:00 D-Dimer 2.57 mg/L FEU (<0.60) H 01/26/17 08:32 Sodium 137 mmol/L (137-145) 01/28/17 06:24 Potassium 4.7 mmol/L (3.5-5.1) 01/28/17 06:24 Chloride 103 mmol/L (98-107) 01/28/17 06:24 Carbon Dioxide 22 mmol/L (22-30) 01/28/17 06:24 Anion Gap 12 mmol/L 01/28/17 06:24 BUN 33 mg/dL (9-20) H 01/28/17 06:24 Creatinine 0.79 mg/dL (0.66-1.25) 01/28/17 06:24 Est GFR (MDRD) Af Amer >60 (>60 ml/min/1.73 sqM) 01/28/17 06:24 Est GFR (MDRD) Non-Af >60 (>60 ml/min/1.73 sqM) 01/28/17 06:24 Glucose 87 mg/dL (74-99) 01/28/17 06:24 POC Glucose (mg/dL) 107 mg/dL (75-99) H 01/29/17 11:40 POC Glu [employer]er Cleaner KANIKA Parag Castro 01/29/17 11:40 Plasma Lactic Acid Francisco Javier 1.0 mmol/L (0.7-2.0) 01/25/17 11:35 Calcium 8.4 mg/dL (8.4-10.2) 01/28/17 06:24 Total Bilirubin 1.5 mg/dL (0.2-1.3) H 01/25/17 11:35 AST 38 U/L (17-59) 01/25/17 11:35 ALT 49 U/L (21-72) 01/25/17 11:35 Alkaline Phosphatase 105 U/L (38-126) 01/25/17 11:35 Total Creatine Kinase 56 U/L (55-170) 01/25/17 23:20 CK-MB (CK-2) 3.3 ng/mL (0.0-2.4) H* 01/25/17 23:20 CK-MB (CK-2) Rel Index 5.9 01/25/17 23:20 Troponin I 0.044 ng/mL (0.000-0.034) H* 01/25/17 23:20 C-Reactive Protein 316.5 mg/L (<10.0) H 01/26/17 08:32 NT-Pro-B Natriuret Pep 3890 pg/mL 01/26/17 08:32 Total Protein 6.6 g/dL (6.3-8.2) 01/25/17 11:35 Albumin 3.4 g/dL (3.5-5.0) L 01/25/17 11:35 Prealbumin 11 mg/dL (18-36) L 01/26/17 08:32 Triglycerides 53 mg/dL (<150) 01/25/17 11:32 Cholesterol 107 mg/dL (<200) 01/25/17 11:32 LDL Cholesterol, Calc 30 mg/dL (0-99) 01/25/17 11:32 HDL Cholesterol 66 mg/dL (40-60) H 01/25/17 11:32 Urine Color Yellow 01/25/17 11:38 Urine Appearance Cloudy (Clear) 01/25/17 11:38 Urine pH 5.5 (5.0-8.0) 01/25/17 11:38 Ur Specific [place] 1.017 (1.001-1.035) 01/25/17 11:38 Urine Protein 3+ (Negative) H 01/25/17 11:38 Urine Glucose (UA) Negative (Negative) 01/25/17 11:38 Urine Ketones Negative (Negative) 01/25/17 11:38 Urine Blood Small (Negative) H 01/25/17 11:38 Urine Nitrite Negative (Negative) 01/25/17 11:38 Urine Bilirubin Negative (Negative) 01/25/17 11:38 Urine Urobilinogen 3.0 mg/dL (<2.0) 01/25/17 11:38 Ur Leukocyte Esterase Negative (Negative) 01/25/17 11:38 Urine RBC 1 /hpf (0-5) 01/25/17 11:38 Urine WBC 4 /hpf (0-5) 01/25/17 11:38 Granular Casts 10 /lpf (0) 01/25/17 11:38 Urine Mucus Rare /hpf (None) H 01/25/17 11:38 Gentamicin Trough 2.0 ug/mL H* 01/28/17 12:18 Vancomycin Trough 16.8 ug/mL 01/28/17 06:24 Influenza Type A RNA Not Detected (Not Detectd) 01/25/17 11:35 Influenza Type B (PCR) Not Detected (Not Detectd) 01/25/17 11:35 Microbiology 01/28/17 06:24 Blood Blood Culture - Preliminary No Growth after 24 hours 01/28/17 06:37 Blood Blood Culture - Preliminary No Growth after 24 hours 01/26/17 08:32 Blood Blood Culture Gram Stain - Final 01/26/17 08:32 Blood Blood Culture - Final Enterococcus faecalis 01/26/17 09:15 Blood Blood Culture Gram Stain - Final 01/26/17 09:15 Blood Blood Culture - Final Enterococcus faecalis 01/26/17 11:48 Urine,Clean Catch Urine Culture - Final Enterococcus faecalis 01/25/17 11:35 Blood Blood Culture Gram Stain - Final 01/25/17 11:35 Blood Blood Culture - Final Enterococcus faecalis 01/26/17 09:15 Blood Blood Culture - Preliminary 01/26/17 08:32 Blood Blood Culture - Preliminary 01/25/17 11:35 Blood Blood Culture - Preliminary Assessment and Plan (1) Atrial fibrillation Narrative/Plan: 76-year-old who has a history of aortic valve replacement. Has been doing relatively well until the sudden onset of the febrile illness. This was with significant pain in his lower back. Imaging studies were done including a computed tomography scan failed reveal evidence of an abscess to the spine or to the musculature of the spine. Did not reveal evidence of any abscess to the colon or retroperitoneal structures. Patient is feeling somewhat better is now having some ongoing pain at that site. Well treated with current Dilaudid dose. He otherwise is feeling somewhat better. The fevers and chills have definitely improved. Does feel better than admission. We discussed that enterococcus is the nicely from his blood which is of great concern given his history of the aortic valve replacement. Transesophageal echocardiogram was performed. Negative for evidence of any vegetations. Valve function was normal no evidence of any other concerns were noted on the echocardiogram and other valves. Consulate follow blood cultures are requested until there is clearance of his bacteremia. Antibiotic therapy was altered to ampicillin plus gentamicin while final cultures are pending. No evidence of Listeria or other bacterial infection at this time. Leukocytosis has improved Back pain is improved but not resolved. Etiology of the bacteremia likely related to the urinary system given the isolation also with enterococcus in the urine. Renal ultrasound has been performed without evidence of obstruction. Your does have abnormal kidneys with multiple cysts. No masses were noted. Follow blood culture that is negative at 24 hours. If this is negative tomorrow the patient continues to improve we could then ask for PICC line to be placed. An and plan the outpatient intravenous antibiotic therapy for his enterococcal bacteremia. PSA has also been requested to evaluate the prostate as a potential source. Consequently if the blood cultures are negative tomorrow may then discontinue the gentamicin therapy. Fortunately the ISIDRO did not show evidence of aortic valve endocarditis on the bioprosthetic valve. Status: Acute
[2017-01-29] MEDS: WARFARIN 5 MG TAB PO SCH (17:46)
[2017-01-29] MEDS: ATORVASTATIN 10 MG TAB PO SCH (19:33)
[2017-01-29 20:57] LABS: Glucose,Whole Blood 109 mg/dL (75-99)
[2017-01-30] MEDS: HYDROmorphone 1 MG/ML 1 ML SYRINGE IVP PRN ×3 (00:17→09:11)
[2017-01-30] MEDS ORDERED: GENTAMICIN TROUGH DUE 1 EACH MISC MISCELLANE ONE (05:30)
[2017-01-30 05:58] LABS: Glucose,Whole Blood 78 mg/dL (75-99)
[2017-01-30] MEDS: AMPICILLIN 2,000 MG in SODIUM CHLORIDE 0.9% 100 ML IVPB SCH ×4 (06:09→22:58)
[2017-01-30] MEDS: HYDROcodone/APAP 10-325MG 1 EACH TAB PO PRN (06:17)
[2017-01-30 06:20] LABS: Prothrombin Time 39.4 sec (9.0-12.0)
[2017-01-30] MEDS: PANTOPRAZOLE 40 MG TABLET PO SCH (06:55)
[2017-01-30] MEDS: GENTAMICIN 70 MG in SODIUM CHLORIDE 0.9% 100 ML IVPB SCH ×2 (07:09→17:56)
[2017-01-30] MEDS ORDERED: GENTAMICIN PEAK DUE 1 EACH MISC MISCELLANE ONE (07:30)
[2017-01-30] MEDS: ASPIRIN 81 MG CHEW PO SCH (09:12)
[2017-01-30] MEDS: METOPROLOL TARTRATE 25 MG TAB PO SCH ×2 (09:12→20:00)
[2017-01-30] MEDS: SODIUM CHLORIDE 0.9% 1,000 ML IV SCH (09:12)
[2017-01-30] MEDS: ALLOPURINOL 100 MG TAB PO SCH (09:13)
[2017-01-30] MEDS: DOCUSATE 100 MG CAP PO SCH ×2 (09:13→20:00)
[2017-01-30 11:29] LABS: Glucose,Whole Blood 113 mg/dL (75-99)
[2017-01-30] MEDS: FERROUS SULFATE 325 MG TAB PO SCH (12:45)
--- NOTE | 2017-01-30 13:46 | P.PN ---
Subjective Patient is a 76-year-old male, patient of Dr. 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 Patient admitted with severe lumbar back pain and history of fevers. Blood and urine cultures with evidence of enterococcus with possible prostate as source of infection. Dr. Quinones from infectious disease service is following patient closely. Upon examination, patient states he feels better but still has pain taking a deep breath and with movement. Patient denies nausea, vomiting, shortness of breath, chest pain, or abdominal pain. No fevers. INR of 4. Objective - Vital Signs Vital signs: Vital Signs Temp 98.3 F 01/30/17 08:00 Pulse 58 L 01/30/17 08:00 Resp 18 01/30/17 08:00 BP 173/84 01/30/17 08:00 Pulse Ox 98 01/30/17 08:00 Intake & Output 01/29/17 01/30/17 01/30/17 18:59 06:59 18:59 Intake Total 1660 550 120 Output Total 500 325 Balance 1660 50 -205 Weight 79.6 kg Intake: IV 340 Ampicillin 2,000 mg In 100 Sodium Chloride 0.9% 100 ml @ 100 mls/hr IVPB Q6HR [facility] Rx#:[id number] Sodium Chloride 0.9% 1, 240 000 ml @ 20 mls/hr IV . Q24H [facility]STOPHER Rx#:[id number] Oral 1320 550 120 Output: Urine 500 325 Other: Voiding Method Toilet Toilet Toilet Urinal Urinal Urinal # Voids 3 1 1 - Exam GENERAL: Pt awake and alert, well-appearing, well-nourished, and in no acute distress. HEAD: Atraumatic, normocephalic. EYES: Pupils equal, round, and reactive to light, sclera anicteric, conjunctiva are normal. ENT: Oropharynx clear without exudates. Moist mucous membranes. NECK:Normal range of motion, supple without lymphadenopathy or JVD. LUNGS: Breath sounds clear to auscultation bilaterally. No wheezes, rales, or rhonchi. HEART: Heart S1, S2, no S3 or S4. Irregularly irregular. No murmurs, rubs or gallops. ABDOMEN: Soft, nontender, normoactive bowel sounds. No guarding, no rebound. No masses or organomegaly appreciated. EXTREMITIES: Palpable peripheral pulses. No edema. No calf tenderness. NEUROLOGICAL: Pt oriented x 3. Cranial nerves II through XII grossly intact. Strength and sensation grossly intact. PSYCH: Normal mood, normal affect. SKIN: Warm, dry, intact. Normal turgor. No rashes or lesions. - Labs CBC & Chem 7: 01/28/17 06:24 01/28/17 06:24 Labs: Abnormal Lab Results - Last 24 Hours (Table) 01/29/17 01/29/17 01/30/17 Range/Units 16:36 20:55 05:48 PT 39.4 H (9.0-12.0) sec POC Glucose (mg/dL) 123 H 109 H (75-99) mg/dL 01/30/17 Range/Units 11:24 PT (9.0-12.0) sec POC Glucose (mg/dL) 113 H (75-99) mg/dL Microbiology - Last 24 Hours (Table) 01/28/17 06:24 Blood Culture - Preliminary Blood No Growth after 48 hours 01/28/17 06:37 Blood Culture - Preliminary Blood No Growth after 48 hours 01/26/17 08:32 Blood Culture - Final Blood 01/26/17 09:15 Blood Culture - Final Blood Assessment and Plan Plan: Impression and plan: 1. Acute back pain and pleurisy, present on admission, with history of fevers prior to admission with blood cultures and urine cultures positive for enterococcus faecalis with possible prostate is source of infection. Dr. Quinones from infectious disease service is following patient, recommendations noted. Patient is currently on antibiotics in the form of IV gentamycin and IV ampicillin. PSA has been ordered. Recent ultrasound of kidneys, ureter and bladder shows no obstruction and multiple renal cysts bilaterally. Continue supportive treatment and pain management. 2. Chronic atrial fibrillation. INR supratherapeutic at 4. We'll hold Coumadin tonight. 3. Increased BUN on admission suspect secondary to secondary to dehydration with history of decreased oral intake. 4. Elevated troponin, present on admission, suspect secondary to infectious process. EKG on admission without ischemic process. 5. History of heart failure, suspect diastolic. Cardiology consult in place. Recommendations noted. 6. Hyperlipidemia. 7. Hypertension. 8. History of lumbar back fusion. 9. History of aortic valve replacement, bovine. 10. History of nicotine dependence. 11. Elevated d-dimer. CTA chest with no evidence for pulmonary embolism. 12. Ascending aortic aneurysm measuring approximately 4.6 cm. 13. Nodular density within the right middle lobe measuring 5 mm that is noncalcified. 14. Liver with questionable nodular contour with possible cirrhosis. 15. History of constipation. 16. Pulmonary artery hypertension. 17. DVT prophylaxis. Continue pneumatic compression sleeves. Continue to monitor patient. Continue current medications. Continue to follow with consultants. Repeat CBC, BMP, PT/INR in a.m. The above impression and plan have been discussed and directed by Dr. Garza. Crystal GALLO acting as scribe for Dr. Garza.
[2017-01-30] MEDS: amLODIPine 5 MG TAB PO SCH (15:24)
[2017-01-30 16:45] LABS: Glucose,Whole Blood 113 mg/dL (75-99)
--- NOTE | 2017-01-30 17:55 | P.PN ---
Subjective Principal diagnosis: Weakness This is a 76-year-old male that gives history of eating [place] salad last week and approximate 5-6 hours later starting having a fever up to 104. He states he had a fever of 104 for 2 days and was using ice to help it. By Monday, his temperature was down to 99. Following that, he developed lumbar back pain which is been so severe that he was not able to move and other people could not help him to move and it's gradually went up his back to the low thoracic area and now comes around under his diaphragm and is causing spasm- like pain. He denies any injuries or falls. He does have history of 3 packs fusions in the past the last one was 10 years ago and he has had no back pain since then. He also has a significant past history of aortic valve replacement with bovine at [facility] in 07/25/2016. He states he has had decreased appetite prior to that and has continued to have decreased appetite since the heart surgery. He also has history of atrial fibrillation and has been on long-term Coumadin for many years. Patient presented to [facility] emergency center was found to be afebrile, white count of 12.8, troponins were 0.097, 0.084 and 0.044. Cardiology is on consult and echocardiogram has been done. Influenza A and B are negative. Patient denies having any nasal congestion, drainage, cough, sore throat. He does state he has had body aches. Urinalysis was cloudy, blood small, nitrate and leukoesterase negative. Chest x-ray shows correlate for pulmonary venous hypertension and interstitial edema, heart failure. CAT scan of the lumbar spine with contrast shows extensive postsurgical and degenerative changes in the lumbar spine. No suspicious well formed fluid collection or abscess seen. No acute fracture. Patient has traveled extensively throughout [place], [place], [place], [place], [place] and etc. He states all immunizations have been up to date for travel. He was also stationed in [facility] in the [facility] in the 1960s as well as stationed in [facility]. His last travel was last summer to [place]. At this time, in general he is feeling improvement. He has been on vancomycin. Blood culture obtained in the ER is showing gram-positive cocci in pairs and chains. Patient does state that he has had some decreased oral intake and urine is a strong yellow color but he has not had any dysuria, frequency. Is noted patient evidence of bacteremia. Gram-positive cocci were seen. Concerns were with strep infection given the Gram stain but also concerns of possible staph. Cultures without evidence of listeria. 170 gram-negative organisms either. Cultures have shown that both the urine and the blood have evidence of enterococcus. The ultrasound without obstruction and PSA not elevated. Objective - Vital Signs Vital signs: Vital Signs Temp 98.4 F 01/30/17 16:00 Pulse 62 01/30/17 16:00 Resp 18 01/30/17 16:00 BP 153/79 01/30/17 16:00 Pulse Ox 95 01/30/17 16:00 Intake & Output 01/29/17 01/30/17 01/30/17 18:59 06:59 18:59 Intake Total 1660 550 300 Output Total 500 325 Balance 1660 50 -25 Weight 79.6 kg Intake: IV 340 Ampicillin 2,000 mg In 100 Sodium Chloride 0.9% 100 ml @ 100 mls/hr IVPB Q6HR [facility] Rx#:[id number] Sodium Chloride 0.9% 1, 240 000 ml @ 20 mls/hr IV . Q24H [facility]STOPHER Rx#:[id number] Oral 1320 550 300 Output: Urine 500 325 Other: Voiding Method Toilet Toilet Toilet Urinal Urinal Urinal # Voids 3 1 1 - Exam Gen: This is a 76-year-old male. He is found in bed and appears to be in no acute distress. HEENT: Head is atraumatic, normocephalic. Pupils equal, round. Sclerae is anicteric. conjunctiva pink. Mucous members of the mouth are moist. No thrush noted. Dentition is in fair order for age. NECK: Supple. No JVD. No lymphadenopathy. No thyromegaly. LUNGS: Clear to auscultation. No wheezes or rhonchi. No intercostal retractions. HEART: Irregular. 2/6 systolic murmur. ABDOMEN: Soft. Bowel sounds are present. No masses. No tenderness. BACK: patient has mild tenderness to the low thoracic area as well as left side of the spine at approximate L4. Surgical wounds noted to the lumbar area. All are completely healed. No swollen areas, deformities noted. No rashes noted. straight leg lift is negative. Foot push pulls strong and equal bilaterally. EXTREMITIES: No pedal edema. No calf tenderness. NEUROLOGICAL: Patient is awake, alert and oriented x3. Feeling considerably better today. - Labs CBC & Chem 7: 01/28/17 06:24 01/28/17 06:24 Labs: Abnormal Lab Results - Last 24 Hours (Table) 01/29/17 01/30/17 01/30/17 Range/Units 20:55 05:48 11:24 PT 39.4 H (9.0-12.0) sec POC Glucose (mg/dL) 109 H 113 H (75-99) mg/dL 01/30/17 Range/Units 16:38 PT (9.0-12.0) sec POC Glucose (mg/dL) 113 H (75-99) mg/dL Microbiology - Last 24 Hours (Table) 01/28/17 06:24 Blood Culture - Preliminary Blood No Growth after 48 hours 01/28/17 06:37 Blood Culture - Preliminary Blood No Growth after 48 hours 01/26/17 08:32 Blood Culture - Final Blood 01/26/17 09:15 Blood Culture - Final Blood Laboratory Results WBC 6.2 k/uL (3.8-10.6) 01/28/17 06:24 RBC 3.45 m/uL (4.30-5.90) L 01/28/17 06:24 Hgb 10.3 gm/dL (13.0-17.5) L 01/28/17 06:24 Hct 32.2 % (39.0-53.0) L 01/28/17 06:24 MCV 93.5 fL (80.0-100.0) 01/28/17 06:24 MCH 29.8 pg (25.0-35.0) 01/28/17 06:24 MCHC 31.8 g/dL (31.0-37.0) 01/28/17 06:24 RDW 17.7 % (11.5-15.5) H 01/28/17 06:24 Plt Count 126 k/uL (150-450) L 01/28/17 06:24 Neutrophils % 81 % 01/28/17 06:24 Lymphocytes % 10 % 01/28/17 06:24 Monocytes % 6 % 01/28/17 06:24 Eosinophils % 1 % 01/28/17 06:24 Basophils % 0 % 01/28/17 06:24 Neutrophils # 5.0 k/uL (1.3-7.7) 01/28/17 06:24 Lymphocytes # 0.6 k/uL (1.0-4.8) L 01/28/17 06:24 Monocytes # 0.3 k/uL (0-1.0) 01/28/17 06:24 Eosinophils # 0.1 k/uL (0-0.7) 01/28/17 06:24 Basophils # 0.0 k/uL (0-0.2) 01/28/17 06:24 Hypochromasia Slight 01/28/17 06:24 Anisocytosis Slight 01/28/17 06:24 ESR 83 mm/hr (0-15) H 01/27/17 05:45 PT 39.4 sec (9.0-12.0) H 01/30/17 05:48 INR 4.0 (<1.1) 01/30/17 05:48 APTT 33.4 sec (22.0-30.0) H 01/25/17 14:00 D-Dimer 2.57 mg/L FEU (<0.60) H 01/26/17 08:32 Sodium 137 mmol/L (137-145) 01/28/17 06:24 Potassium 4.7 mmol/L (3.5-5.1) 01/28/17 06:24 Chloride 103 mmol/L (98-107) 01/28/17 06:24 Carbon Dioxide 22 mmol/L (22-30) 01/28/17 06:24 Anion Gap 12 mmol/L 01/28/17 06:24 BUN 33 mg/dL (9-20) H 01/28/17 06:24 Creatinine 0.79 mg/dL (0.66-1.25) 01/28/17 06:24 Est GFR (MDRD) Af Amer >60 (>60 ml/min/1.73 sqM) 01/28/17 06:24 Est GFR (MDRD) Non-Af >60 (>60 ml/min/1.73 sqM) 01/28/17 06:24 Glucose 87 mg/dL (74-99) 01/28/17 06:24 POC Glucose (mg/dL) 113 mg/dL (75-99) H 01/30/17 16:38 POC Glu [employer] Supervisor ID Huy Mandel 01/30/17 16:38 Plasma Lactic Acid Francisco Javier 1.0 mmol/L (0.7-2.0) 01/25/17 11:35 Calcium 8.4 mg/dL (8.4-10.2) 01/28/17 06:24 Total Bilirubin 1.5 mg/dL (0.2-1.3) H 01/25/17 11:35 AST 38 U/L (17-59) 01/25/17 11:35 ALT 49 U/L (21-72) 01/25/17 11:35 Alkaline Phosphatase 105 U/L (38-126) 01/25/17 11:35 Total Creatine Kinase 56 U/L (55-170) 01/25/17 23:20 CK-MB (CK-2) 3.3 ng/mL (0.0-2.4) H* 01/25/17 23:20 CK-MB (CK-2) Rel Index 5.9 01/25/17 23:20 Troponin I 0.044 ng/mL (0.000-0.034) H* 01/25/17 23:20 C-Reactive Protein 316.5 mg/L (<10.0) H 01/26/17 08:32 NT-Pro-B Natriuret Pep 3890 pg/mL 01/26/17 08:32 Total Protein 6.6 g/dL (6.3-8.2) 01/25/17 11:35 Albumin 3.4 g/dL (3.5-5.0) L 01/25/17 11:35 Prealbumin 11 mg/dL (18-36) L 01/26/17 08:32 Triglycerides 53 mg/dL (<150) 01/25/17 11:32 Cholesterol 107 mg/dL (<200) 01/25/17 11:32 LDL Cholesterol, Calc 30 mg/dL (0-99) 01/25/17 11:32 HDL Cholesterol 66 mg/dL (40-60) H 01/25/17 11:32 Free PSA Not Performed ng/mL 01/28/17 12:18 % Free PSA Not Performed % 01/28/17 12:18 Total PSA 1.1 ng/mL (0.1 - 4.0) 01/28/17 12:18 Urine Color Yellow 01/25/17 11:38 Urine Appearance Cloudy (Clear) 01/25/17 11:38 Urine pH 5.5 (5.0-8.0) 01/25/17 11:38 Ur Specific [place] 1.017 (1.001-1.035) 01/25/17 11:38 Urine Protein 3+ (Negative) H 01/25/17 11:38 Urine Glucose (UA) Negative (Negative) 01/25/17 11:38 Urine Ketones Negative (Negative) 01/25/17 11:38 Urine Blood Small (Negative) H 01/25/17 11:38 Urine Nitrite Negative (Negative) 01/25/17 11:38 Urine Bilirubin Negative (Negative) 01/25/17 11:38 Urine Urobilinogen 3.0 mg/dL (<2.0) 01/25/17 11:38 Ur Leukocyte Esterase Negative (Negative) 01/25/17 11:38 Urine RBC 1 /hpf (0-5) 01/25/17 11:38 Urine WBC 4 /hpf (0-5) 01/25/17 11:38 Granular Casts 10 /lpf (0) 01/25/17 11:38 Urine Mucus Rare /hpf (None) H 01/25/17 11:38 Gentamicin Peak 3.7 ug/mL 01/30/17 08:26 Gentamicin Trough 1.2 ug/mL 01/30/17 05:48 Vancomycin Trough 16.8 ug/mL 01/28/17 06:24 Influenza Type A RNA Not Detected (Not Detectd) 01/25/17 11:35 Influenza Type B (PCR) Not Detected (Not Detectd) 01/25/17 11:35 Microbiology 01/28/17 06:24 Blood Blood Culture - Preliminary No Growth after 48 hours 01/28/17 06:37 Blood Blood Culture - Preliminary No Growth after 48 hours 01/26/17 08:32 Blood Blood Culture - Final 01/26/17 09:15 Blood Blood Culture - Final 01/26/17 08:32 Blood Blood Culture Gram Stain - Final 01/26/17 08:32 Blood Blood Culture - Final Enterococcus faecalis 01/26/17 09:15 Blood Blood Culture Gram Stain - Final 01/26/17 09:15 Blood Blood Culture - Final Enterococcus faecalis 01/26/17 11:48 Urine,Clean Catch Urine Culture - Final Enterococcus faecalis 01/25/17 11:35 Blood Blood Culture Gram Stain - Final 01/25/17 11:35 Blood Blood Culture - Final Enterococcus faecalis 01/25/17 11:35 Blood Blood Culture - Preliminary Assessment and Plan (1) Atrial fibrillation Narrative/Plan: 76-year-old who has a history of aortic valve replacement. Has been doing relatively well until the sudden onset of the febrile illness. This was with significant pain in his lower back. Imaging studies were done including a computed tomography scan failed reveal evidence of an abscess to the spine or to the musculature of the spine. Did not reveal evidence of any abscess to the colon or retroperitoneal structures. Patient is feeling somewhat better is now having some ongoing pain at that site. Well treated with current Dilaudid dose. He otherwise is feeling somewhat better. The fevers and chills have definitely improved. Does feel better than admission. We discussed that enterococcus is the nicely from his blood which is of great concern given his history of the aortic valve replacement. Transesophageal echocardiogram was performed. Negative for evidence of any vegetations. Valve function was normal no evidence of any other concerns were noted on the echocardiogram and other valves. Consulate follow blood cultures are requested until there is clearance of his bacteremia. Antibiotic therapy was altered to ampicillin plus gentamicin while final cultures are pending. No evidence of Listeria or other bacterial infection at this time. Leukocytosis has improved Back pain is improved but not resolved. Etiology of the bacteremia likely related to the urinary system given the isolation also with enterococcus in the urine. Renal ultrasound has been performed without evidence of obstruction. However does have abnormal kidneys with multiple cysts. No masses were noted. Follow blood culture that is negative at 48 hours. ask for PICC line to be placed. An and plan the outpatient intravenous antibiotic therapy for his enterococcal bacteremia. PSA has returned as normal, making prostatitis unlikely. Consequently since the blood cultures are negative may then discontinue the gentamicin therapy. Fortunately the ISIDRO did not show evidence of aortic valve endocarditis on the bioprosthetic valve. Status: Acute (2) Enterococcal bacteremia Status: Acute (3) Enterococcus UTI Status: Acute
[2017-01-30] MEDS: ATORVASTATIN 10 MG TAB PO SCH (20:00)
[2017-01-30 21:30] LABS: Glucose,Whole Blood 124 mg/dL (75-99)
[2017-01-31] MEDS: AMPICILLIN 2,000 MG in SODIUM CHLORIDE 0.9% 100 ML IVPB SCH ×4 (05:21→23:16)
[2017-01-31 07:51] LABS: Glucose,Whole Blood 81 mg/dL (75-99)
[2017-01-31 09:54] LABS: Anisocytosis Slight; Basophils % (A) 0 %; CH 29.1; CHCM 31.5; Eosinophils # (A) 0.1 k/uL (0-0.7); Eosinophils % (A) 1 %; HCT 36.1 % (39.0-53.0); HGB 11.4 gm/dL (13.0-17.5); Hypochromasia Slight; Luc # (Auto) 0.15; Luc % (Auto) 2; Lymphocytes % (A) 12 %; MCH 29.2 pg (25.0-35.0); MCHC 31.5 g/dL (31.0-37.0); MCV 92.7 fL (80.0-100.0); Mean Platelet Volume 6.6; Monocytes # (A) 0.3 k/uL (0-1.0); Monocytes % (A) 4 %; Neutrophils # (A) 6.5 k/uL (1.3-7.7); Neutrophils % (A) 81 %; RBC 3.89 m/uL (4.30-5.90); WBC (Perox) 8.06
[2017-01-31] MEDS: METOPROLOL TARTRATE 25 MG TAB PO SCH ×2 (09:56→20:26)
[2017-01-31] MEDS: ALLOPURINOL 100 MG TAB PO SCH (09:56)
[2017-01-31] MEDS: ASPIRIN 81 MG CHEW PO SCH (09:56)
[2017-01-31] MEDS: amLODIPine 5 MG TAB PO SCH (09:56)
[2017-01-31] MEDS: FERROUS SULFATE 325 MG TAB PO SCH (09:56)
[2017-01-31] MEDS: DOCUSATE 100 MG CAP PO SCH ×2 (09:56→20:26)
[2017-01-31] MEDS: SODIUM CHLORIDE 0.9% 1,000 ML IV SCH (09:57)
[2017-01-31 09:58] LABS: Prothrombin Time 29.1 sec (9.0-12.0)
[2017-01-31] MEDS: HYDROcodone/APAP 10-325MG 1 EACH TAB PO PRN ×2 (10:04→23:55)
[2017-01-31 10:18] LABS: Anion Gap 11 mmol/L; Blood Urea Nitrogen 18 mg/dL (9-20); Calcium 9.7 mg/dL (8.4-10.2); Carbon Dioxide 26 mmol/L (22-30); Chloride 103 mmol/L (98-107); Glucose 88 mg/dL (74-99); Non-African American GFR(MDRD) >60 (>60 ml/min/1.73 sqM); Potassium 4.9 mmol/L (3.5-5.1); Sodium 140 mmol/L (137-145)
[2017-01-31 12:23] LABS: Glucose,Whole Blood 92 mg/dL (75-99)
--- NOTE | 2017-01-31 14:35 | P.PN ---
Subjective Patient is a 76-year-old male, patient of Dr. 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 Patient admitted with severe lumbar back pain and history of fevers. Blood and urine cultures with evidence of enterococcus with prostate ruled out as possible source of infection. Dr. Quinones from infectious disease service is following patient closely. Patient is currently awaiting PICC line which has been was pulled until tomorrow secondary to patient's INR being 3. Upon examination, patient states he feels better but improvement in pain. Patient denies nausea, vomiting, shortness of breath, chest pain, or abdominal pain. No fevers. Objective - Vital Signs Vital signs: Vital Signs Temp 97.7 F 01/31/17 07:00 Pulse 72 01/31/17 07:00 Resp 18 01/31/17 11:57 BP 128/72 01/31/17 07:00 Pulse Ox 93 L 01/31/17 07:00 Intake & Output 01/30/17 01/31/17 01/31/17 18:59 06:59 18:59 Intake Total 300 300 Output Total 325 Balance -25 300 Weight 76 kg 76 kg Intake: Oral 300 300 Output: Urine 325 Other: Voiding Method Toilet Urinal # Voids 1 2 - Exam GENERAL: Pt awake and alert, well-appearing, well-nourished, and in no acute distress. HEAD: Atraumatic, normocephalic. EYES: Pupils equal, round, and reactive to light, sclera anicteric, conjunctiva are normal. ENT: Oropharynx clear without exudates. Moist mucous membranes. NECK:Normal range of motion, supple without lymphadenopathy or JVD. LUNGS: Breath sounds clear to auscultation bilaterally. No wheezes, rales, or rhonchi. HEART: Heart S1, S2, no S3 or S4. Irregularly irregular. No murmurs, rubs or gallops. ABDOMEN: Soft, nontender, normoactive bowel sounds. No guarding, no rebound. No masses or organomegaly appreciated. EXTREMITIES: Palpable peripheral pulses. No edema. No calf tenderness. NEUROLOGICAL: Pt oriented x 3. Cranial nerves II through XII grossly intact. Strength and sensation grossly intact. PSYCH: Normal mood, normal affect. SKIN: Warm, dry, intact. Normal turgor. No rashes or lesions. - Labs CBC & Chem 7: 01/31/17 08:56 01/31/17 08:56 Labs: Abnormal Lab Results - Last 24 Hours (Table) 01/30/17 01/30/17 01/31/17 Range/Units 16:38 21:27 08:56 RBC 3.89 L (4.30-5.90) m/uL Hgb 11.4 L (13.0-17.5) gm/dL Hct 36.1 L (39.0-53.0) % RDW 17.0 H (11.5-15.5) % PT (9.0-12.0) sec POC Glucose (mg/dL) 113 H 124 H (75-99) mg/dL 01/31/17 Range/Units 08:56 RBC (4.30-5.90) m/uL Hgb (13.0-17.5) gm/dL Hct (39.0-53.0) % RDW (11.5-15.5) % PT 29.1 H (9.0-12.0) sec POC Glucose (mg/dL) (75-99) mg/dL Microbiology - Last 24 Hours (Table) 01/28/17 06:24 Blood Culture - Preliminary Blood No Growth after 72 hours 01/28/17 06:37 Blood Culture - Preliminary Blood No Growth after 72 hours Assessment and Plan Plan: Impression and plan: 1. Acute back pain and pleurisy, present on admission, with history of fevers prior to admission with blood cultures and urine cultures positive for enterococcus faecalis with possible prostate is source of infection. Dr. Quinones from infectious disease service is following patient, recommendations noted. Patient is currently on antibiotics in the form of IV ampicillin. Recent ultrasound of kidneys, ureter and bladder shows no obstruction and multiple renal cysts bilaterally. Continue supportive treatment and pain management. Patient will need PICC line for outpatient antibiotics. 2. Chronic atrial fibrillation. INR supratherapeutic at 3. Continue to hold Coumadin. 3. Increased BUN on admission suspect secondary to secondary to dehydration with history of decreased oral intake, resolved. 4. Elevated troponin, present on admission, suspect secondary to infectious process. EKG on admission without ischemic process. 5. History of heart failure, suspect diastolic. Cardiology consult in place. Recommendations noted. 6. Hyperlipidemia. Continue Lipitor 10 mg by mouth at bedtime. 7. Hypertension. Continue metoprolol 25 mg twice a day. Continue Norvasc 5 mg. 8. History of lumbar back fusion. 9. History of aortic valve replacement, bovine. 10. History of nicotine dependence. 11. Elevated d-dimer. CTA chest with no evidence for pulmonary embolism. 12. Ascending aortic aneurysm measuring approximately 4.6 cm. 13. Nodular density within the right middle lobe measuring 5 mm that is noncalcified. 14. Liver with questionable nodular contour with possible cirrhosis. 15. History of constipation. Continue Colace 100 mg by mouth twice a day. 16. Pulmonary artery hypertension. 17. DVT prophylaxis. Continue pneumatic compression sleeves. 18. Anemia suspect iron deficiency. Continue iron supplement. Continue to monitor patient. Continue current medications. Continue to follow with consultants. Repeat CBC, BMP, PT/INR in a.m. The above impression and plan have been discussed and directed by Dr. Garza. Crystal GALLO acting as scribe for Dr. Garza.
[2017-01-31 17:30] LABS: Glucose,Whole Blood 96 mg/dL (75-99)
[2017-01-31] MEDS: WARFARIN 5 MG TAB PO SCH (17:45)
[2017-01-31] MEDS: ATORVASTATIN 10 MG TAB PO SCH (20:26)
[2017-01-31 21:18] LABS: Glucose,Whole Blood 131 mg/dL (75-99)
--- NOTE | 2017-01-31 22:10 | P.PN ---
Subjective Principal diagnosis: Weakness This is a 76-year-old male that gives history of eating [place] salad last week and approximate 5-6 hours later starting having a fever up to 104. He states he had a fever of 104 for 2 days and was using ice to help it. By Monday, his temperature was down to 99. Following that, he developed lumbar back pain which is been so severe that he was not able to move and other people could not help him to move and it's gradually went up his back to the low thoracic area and now comes around under his diaphragm and is causing spasm- like pain. He denies any injuries or falls. He does have history of 3 packs fusions in the past the last one was 10 years ago and he has had no back pain since then. He also has a significant past history of aortic valve replacement with bovine at [facility] in 07/25/2016. He states he has had decreased appetite prior to that and has continued to have decreased appetite since the heart surgery. He also has history of atrial fibrillation and has been on long-term Coumadin for many years. Patient presented to [facility] emergency center was found to be afebrile, white count of 12.8, troponins were 0.097, 0.084 and 0.044. Cardiology is on consult and echocardiogram has been done. Influenza A and B are negative. Patient denies having any nasal congestion, drainage, cough, sore throat. He does state he has had body aches. Urinalysis was cloudy, blood small, nitrate and leukoesterase negative. Chest x-ray shows correlate for pulmonary venous hypertension and interstitial edema, heart failure. CAT scan of the lumbar spine with contrast shows extensive postsurgical and degenerative changes in the lumbar spine. No suspicious well formed fluid collection or abscess seen. No acute fracture. Patient has traveled extensively throughout [place], [place], [place], [place], [place] and etc. He states all immunizations have been up to date for travel. He was also stationed in [facility] in the [facility] in the 1960s as well as stationed in [facility]. His last travel was last summer to [place]. At this time, in general he is feeling improvement. He has been on vancomycin. Blood culture obtained in the ER is showing gram-positive cocci in pairs and chains. Patient does state that he has had some decreased oral intake and urine is a strong yellow color but he has not had any dysuria, frequency. Is noted patient evidence of bacteremia. Gram-positive cocci were seen. Concerns were with strep infection given the Gram stain but also concerns of possible staph. Cultures without evidence of listeria. No evidence of gram- negative organisms either. Cultures have shown that both the urine and the blood have evidence of enterococcus. The ultrasound without obstruction and PSA not elevated. The patient was to have his PICC today but his INR was too elevated. Objective - Vital Signs Vital signs: Vital Signs Temp 97 F L 01/31/17 15:00 Pulse 73 01/31/17 20:24 Resp 14 01/31/17 20:24 BP 121/67 01/31/17 20:24 Pulse Ox 95 01/31/17 20:24 Intake & Output 01/31/17 01/31/17 02/01/17 06:59 18:59 06:59 Intake Total 300 Balance 300 Weight 76 kg Intake: Oral 300 Other: # Voids 2 4 - Exam Gen: This is a 76-year-old male. He is found in bed and appears to be in no acute distress. HEENT: Head is atraumatic, normocephalic. Pupils equal, round. Sclerae is anicteric. conjunctiva pink. Mucous members of the mouth are moist. No thrush noted. Dentition is in fair order for age. NECK: Supple. No JVD. No lymphadenopathy. No thyromegaly. LUNGS: Clear to auscultation. No wheezes or rhonchi. No intercostal retractions. HEART: Irregular. 2/6 systolic murmur. ABDOMEN: Soft. Bowel sounds are present. No masses. No tenderness. BACK: patient has mild tenderness to the low thoracic area as well as left side of the spine at approximate L4. Surgical wounds noted to the lumbar area. All are completely healed. No swollen areas, deformities noted. No rashes noted. straight leg lift is negative. Foot push pulls strong and equal bilaterally. EXTREMITIES: No pedal edema. No calf tenderness. NEUROLOGICAL: Patient is awake, alert and oriented x3. Feeling considerably better today. - Labs CBC & Chem 7: 01/31/17 08:56 01/31/17 08:56 Labs: Abnormal Lab Results - Last 24 Hours (Table) 01/31/17 01/31/1701/31/17 Range/Units 08:56 08:56 21:16 RBC 3.89 L (4.30-5.90) m/uL Hgb 11.4 L (13.0-17.5) gm/dL Hct 36.1 L (39.0-53.0) % RDW 17.0 H (11.5-15.5) % PT 29.1 H (9.0-12.0) sec POC Glucose (mg/dL) 131 H (75-99) mg/dL Microbiology - Last 24 Hours (Table) 01/28/17 06:24 Blood Culture - Preliminary Blood No Growth after 72 hours 01/28/17 06:37 Blood Culture - Preliminary Blood No Growth after 72 hours Laboratory Results WBC 8.0 k/uL (3.8-10.6) 01/31/17 08:56 RBC 3.89 m/uL (4.30-5.90) L 01/31/17 08:56 Hgb 11.4 gm/dL (13.0-17.5) L 01/31/17 08:56 Hct 36.1 % (39.0-53.0) L 01/31/17 08:56 MCV 92.7 fL (80.0-100.0) 01/31/17 08:56 MCH 29.2 pg (25.0-35.0) 01/31/17 08:56 MCHC 31.5 g/dL (31.0-37.0) 01/31/17 08:56 RDW 17.0 % (11.5-15.5) H 01/31/17 08:56 Plt Count 288 k/uL (150-450) D 01/31/17 08:56 Neutrophils % 81 % 01/31/17 08:56 Lymphocytes % 12 % 01/31/17 08:56 Monocytes % 4 % 01/31/17 08:56 Eosinophils % 1 % 01/31/17 08:56 Basophils % 0 % 01/31/17 08:56 Neutrophils # 6.5 k/uL (1.3-7.7) 01/31/17 08:56 Lymphocytes # 1.0 k/uL (1.0-4.8) 01/31/17 08:56 Monocytes # 0.3 k/uL (0-1.0) 01/31/17 08:56 Eosinophils # 0.1 k/uL (0-0.7) 01/31/17 08:56 Basophils # 0.0 k/uL (0-0.2) 01/31/17 08:56 Hypochromasia Slight 01/31/17 08:56 Anisocytosis Slight 01/31/17 08:56 ESR 83 mm/hr (0-15) H 01/27/17 05:45 PT 29.1 sec (9.0-12.0) H 01/31/17 08:56 INR 3.0 (<1.1) 01/31/17 08:56 APTT 33.4 sec (22.0-30.0) H 01/25/17 14:00 D-Dimer 2.57 mg/L FEU (<0.60) H 01/26/17 08:32 Sodium 140 mmol/L (137-145) 01/31/17 08:56 Potassium 4.9 mmol/L (3.5-5.1) 01/31/17 08:56 Chloride 103 mmol/L (98-107) 01/31/17 08:56 Carbon Dioxide 26 mmol/L (22-30) 01/31/17 08:56 Anion Gap 11 mmol/L 01/31/17 08:56 BUN 18 mg/dL (9-20) 01/31/17 08:56 Creatinine 0.83 mg/dL (0.66-1.25) 01/31/17 08:56 Est GFR (MDRD) Af Amer >60 (>60 ml/min/1.73 sqM) 01/31/17 08:56 Est GFR (MDRD) Non-Af >60 (>60 ml/min/1.73 sqM) 01/31/17 08:56 Glucose 88 mg/dL (74-99) 01/31/17 08:56 POC Glucose (mg/dL) 131 mg/dL (75-99) H 01/31/17 21:16 POC Glu Marketing Database Analyst KANIKA Carrie Jay 01/31/17 21:16 Plasma Lactic Acid Francisco Javier 1.0 mmol/L (0.7-2.0) 01/25/17 11:35 Calcium 9.7 mg/dL (8.4-10.2) 01/31/17 08:56 Total Bilirubin 1.5 mg/dL (0.2-1.3) H 01/25/17 11:35 AST 38 U/L (17-59) 01/25/17 11:35 ALT 49 U/L (21-72) 01/25/17 11:35 Alkaline Phosphatase 105 U/L (38-126) 01/25/17 11:35 Total Creatine Kinase 56 U/L (55-170) 01/25/17 23:20 CK-MB (CK-2) 3.3 ng/mL (0.0-2.4) H* 01/25/17 23:20 CK-MB (CK-2) Rel Index 5.9 01/25/17 23:20 Troponin I 0.044 ng/mL (0.000-0.034) H* 01/25/17 23:20 C-Reactive Protein 316.5 mg/L (<10.0) H 01/26/17 08:32 NT-Pro-B Natriuret Pep 3890 pg/mL 01/26/17 08:32 Total Protein 6.6 g/dL (6.3-8.2) 01/25/17 11:35 Albumin 3.4 g/dL (3.5-5.0) L 01/25/17 11:35 Prealbumin 11 mg/dL (18-36) L 01/26/17 08:32 Triglycerides 53 mg/dL (<150) 01/25/17 11:32 Cholesterol 107 mg/dL (<200) 01/25/17 11:32 LDL Cholesterol, Calc 30 mg/dL (0-99) 01/25/17 11:32 HDL Cholesterol 66 mg/dL (40-60) H 01/25/17 11:32 Free PSA Not Performed ng/mL 01/28/17 12:18 % Free PSA Not Performed % 01/28/17 12:18 Total PSA 1.1 ng/mL (0.1 - 4.0) 01/28/17 12:18 Urine Color Yellow 01/25/17 11:38 Urine Appearance Cloudy (Clear) 01/25/17 11:38 Urine pH 5.5 (5.0-8.0) 01/25/17 11:38 Ur Specific [place] 1.017 (1.001-1.035) 01/25/17 11:38 Urine Protein 3+ (Negative) H 01/25/17 11:38 Urine Glucose (UA) Negative (Negative) 01/25/17 11:38 Urine Ketones Negative (Negative) 01/25/17 11:38 Urine Blood Small (Negative) H 01/25/17 11:38 Urine Nitrite Negative (Negative) 01/25/17 11:38 Urine Bilirubin Negative (Negative) 01/25/17 11:38 Urine Urobilinogen 3.0 mg/dL (<2.0) 01/25/17 11:38 Ur Leukocyte Esterase Negative (Negative) 01/25/17 11:38 Urine RBC 1 /hpf (0-5) 01/25/17 11:38 Urine WBC 4 /hpf (0-5) 01/25/17 11:38 Granular Casts 10 /lpf (0) 01/25/17 11:38 Urine Mucus Rare /hpf (None) H 01/25/17 11:38 Gentamicin Peak 3.7 ug/mL 01/30/17 08:26 Gentamicin Trough 1.2 ug/mL 01/30/17 05:48 Vancomycin Trough 16.8 ug/mL 01/28/17 06:24 Influenza Type A RNA Not Detected (Not Detectd) 01/25/17 11:35 Influenza Type B (PCR) Not Detected (Not Detectd) 01/25/17 11:35 Laboratory Results WBC 8.0 k/uL (3.8-10.6) 01/31/17 08:56 RBC 3.89 m/uL (4.30-5.90) L 01/31/17 08:56 Hgb 11.4 gm/dL (13.0-17.5) L 01/31/17 08:56 Hct 36.1 % (39.0-53.0) L 01/31/17 08:56 MCV 92.7 fL (80.0-100.0) 01/31/17 08:56 MCH 29.2 pg (25.0-35.0) 01/31/17 08:56 MCHC 31.5 g/dL (31.0-37.0) 01/31/17 08:56 RDW 17.0 % (11.5-15.5) H 01/31/17 08:56 Plt Count 288 k/uL (150-450) D 01/31/17 08:56 Neutrophils % 81 % 01/31/17 08:56 Lymphocytes % 12 % 01/31/17 08:56 Monocytes % 4 % 01/31/17 08:56 Eosinophils % 1 % 01/31/17 08:56 Basophils % 0 % 01/31/17 08:56 Neutrophils # 6.5 k/uL (1.3-7.7) 01/31/17 08:56 Lymphocytes # 1.0 k/uL (1.0-4.8) 01/31/17 08:56 Monocytes # 0.3 k/uL (0-1.0) 01/31/17 08:56 Eosinophils # 0.1 k/uL (0-0.7) 01/31/17 08:56 Basophils # 0.0 k/uL (0-0.2) 01/31/17 08:56 Hypochromasia Slight 01/31/17 08:56 Anisocytosis Slight 01/31/17 08:56 ESR 83 mm/hr (0-15) H 01/27/17 05:45 PT 29.1 sec (9.0-12.0) H 01/31/17 08:56 INR 3.0 (<1.1) 01/31/17 08:56 APTT 33.4 sec (22.0-30.0) H 01/25/17 14:00 D-Dimer 2.57 mg/L FEU (<0.60) H 01/26/17 08:32 Sodium 140 mmol/L (137-145) 01/31/17 08:56 Potassium 4.9 mmol/L (3.5-5.1) 01/31/17 08:56 Chloride 103 mmol/L (98-107) 01/31/17 08:56 Carbon Dioxide 26 mmol/L (22-30) 01/31/17 08:56 Anion Gap 11 mmol/L 01/31/17 08:56 BUN 18 mg/dL (9-20) 01/31/17 08:56 Creatinine 0.83 mg/dL (0.66-1.25) 01/31/17 08:56 Est GFR (MDRD) Af Amer >60 (>60 ml/min/1.73 sqM) 01/31/17 08:56 Est GFR (MDRD) Non-Af >60 (>60 ml/min/1.73 sqM) 01/31/17 08:56 Glucose 88 mg/dL (74-99) 01/31/17 08:56 POC Glucose (mg/dL) 131 mg/dL (75-99) H 01/31/17 21:16 POC Glu Marketing Database Analyst Carrie Alvarado 01/31/17 21:16 Plasma Lactic Acid Francisco Javier 1.0 mmol/L (0.7-2.0) 01/25/17 11:35 Calcium 9.7 mg/dL (8.4-10.2) 01/31/17 08:56 Total Bilirubin 1.5 mg/dL (0.2-1.3) H 01/25/17 11:35 AST 38 U/L (17-59) 01/25/17 11:35 ALT 49 U/L (21-72) 01/25/17 11:35 Alkaline Phosphatase 105 U/L (38-126) 01/25/17 11:35 Total Creatine Kinase 56 U/L (55-170) 01/25/17 23:20 CK-MB (CK-2) 3.3 ng/mL (0.0-2.4) H* 01/25/17 23:20 CK-MB (CK-2) Rel Index 5.9 01/25/17 23:20 Troponin I 0.044 ng/mL (0.000-0.034) H* 01/25/17 23:20 C-Reactive Protein 316.5 mg/L (<10.0) H 01/26/17 08:32 NT-Pro-B Natriuret Pep 3890 pg/mL 01/26/17 08:32 Total Protein 6.6 g/dL (6.3-8.2) 01/25/17 11:35 Albumin 3.4 g/dL (3.5-5.0) L 01/25/17 11:35 Prealbumin 11 mg/dL (18-36) L 01/26/17 08:32 Triglycerides 53 mg/dL (<150) 01/25/17 11:32 Cholesterol 107 mg/dL (<200) 01/25/17 11:32 LDL Cholesterol, Calc 30 mg/dL (0-99) 01/25/17 11:32 HDL Cholesterol 66 mg/dL (40-60) H 01/25/17 11:32 Free PSA Not Performed ng/mL 01/28/17 12:18 % Free PSA Not Performed % 01/28/17 12:18 Total PSA 1.1 ng/mL (0.1 - 4.0) 01/28/17 12:18 Urine Color Yellow 01/25/17 11:38 Urine Appearance Cloudy (Clear) 01/25/17 11:38 Urine pH 5.5 (5.0-8.0) 01/25/17 11:38 Ur Specific [place] 1.017 (1.001-1.035) 01/25/17 11:38 Urine Protein 3+ (Negative) H 01/25/17 11:38 Urine Glucose (UA) Negative (Negative) 01/25/17 11:38 Urine Ketones Negative (Negative) 01/25/17 11:38 Urine Blood Small (Negative) H 01/25/17 11:38 Urine Nitrite Negative (Negative) 01/25/17 11:38 Urine Bilirubin Negative (Negative) 01/25/17 11:38 Urine Urobilinogen 3.0 mg/dL (<2.0) 01/25/17 11:38 Ur Leukocyte Esterase Negative (Negative) 01/25/17 11:38 Urine RBC 1 /hpf (0-5) 01/25/17 11:38 Urine WBC 4 /hpf (0-5) 01/25/17 11:38 Granular Casts 10 /lpf (0) 01/25/17 11:38 Urine Mucus Rare /hpf (None) H 01/25/17 11:38 Gentamicin Peak 3.7 ug/mL 01/30/17 08:26 Gentamicin Trough 1.2 ug/mL 01/30/17 05:48 Vancomycin Trough 16.8 ug/mL 01/28/17 06:24 Influenza Type A RNA Not Detected (Not Detectd) 01/25/17 11:35 Influenza Type B (PCR) Not Detected (Not Detectd) 01/25/17 11:35 Microbiology 01/28/17 06:24 Blood Blood Culture - Preliminary No Growth after 72 hours 01/28/17 06:37 Blood Blood Culture - Preliminary No Growth after 72 hours 01/26/17 08:32 Blood Blood Culture - Final 01/26/17 09:15 Blood Blood Culture - Final 01/26/17 08:32 Blood Blood Culture Gram Stain - Final 01/26/17 08:32 Blood Blood Culture - Final Enterococcus faecalis 01/26/17 09:15 Blood Blood Culture Gram Stain - Final 01/26/17 09:15 Blood Blood Culture - Final Enterococcus faecalis 01/26/17 11:48 Urine,Clean Catch Urine Culture - Final Enterococcus faecalis 01/25/17 11:35 Blood Blood Culture Gram Stain - Final 01/25/17 11:35 Blood Blood Culture - Final Enterococcus faecalis 01/25/17 11:35 Blood Blood Culture - Preliminary Assessment and Plan (1) Atrial fibrillation Narrative/Plan: 76-year-old who has a history of aortic valve replacement. Has been doing relatively well until the sudden onset of the febrile illness. This was with significant pain in his lower back. Imaging studies were done including a computed tomography scan failed reveal evidence of an abscess to the spine or to the musculature of the spine. Did not reveal evidence of any abscess to the colon or retroperitoneal structures. Patient is feeling somewhat better is now having some ongoing pain at that site. Well treated with current Dilaudid dose. He otherwise is feeling somewhat better. The fevers and chills have definitely improved. Does feel better than admission. We discussed that enterococcus is the nicely from his blood which is of great concern given his history of the aortic valve replacement. Transesophageal echocardiogram was performed. Negative for evidence of any vegetations. Valve function was normal no evidence of any other concerns were noted on the echocardiogram and other valves. Consulate follow blood cultures are requested until there is clearance of his bacteremia. Antibiotic therapy was altered to ampicillin plus gentamicin while final cultures are pending. No evidence of Listeria or other bacterial infection at this time. Leukocytosis has improved Back pain is improved but not resolved. Etiology of the bacteremia likely related to the urinary system given the isolation also with enterococcus in the urine. Renal ultrasound has been performed without evidence of obstruction. However does have abnormal kidneys with multiple cysts. No masses were noted. Follow up blood culture that is negative at 48 hours. Order for PICC line to be placed. Was held due to the high INR An and plan the outpatient intravenous antibiotic therapy for his enterococcal bacteremia. Working for his outpatient intravenous antibiotic therapy. PSA has returned as normal, making prostatitis unlikely. Consequently since the blood cultures are negative may then discontinue the gentamicin therapy. Fortunately the ISIDRO did not show evidence of aortic valve endocarditis on the bioprosthetic valve. Status: Acute (2) Enterococcal bacteremia Status: Acute (3) Enterococcus UTI Status: Acute
[2017-02-01] MEDS: AMPICILLIN 2,000 MG in SODIUM CHLORIDE 0.9% 100 ML IVPB SCH ×3 (05:15→17:04)
[2017-02-01 07:50] LABS: Glucose,Whole Blood 89 mg/dL (75-99)
[2017-02-01 08:00] VITALS: PULSE 62; RESP 20
[2017-02-01] MEDS: ALLOPURINOL 100 MG TAB PO SCH (08:06)
[2017-02-01] MEDS: FERROUS SULFATE 325 MG TAB PO SCH (08:06)
[2017-02-01] MEDS: amLODIPine 5 MG TAB PO SCH (08:06)
[2017-02-01] MEDS: METOPROLOL TARTRATE 25 MG TAB PO SCH (08:07)
[2017-02-01] MEDS: DOCUSATE 100 MG CAP PO SCH (08:07)
[2017-02-01] MEDS: SODIUM CHLORIDE 0.9% 1,000 ML IV SCH (08:07)
[2017-02-01] MEDS: ASPIRIN 81 MG CHEW PO SCH (08:07)
[2017-02-01] MEDS: PANTOPRAZOLE 40 MG TABLET PO SCH (08:07)
[2017-02-01 08:50] LABS: Anisocytosis Slight; Basophils # (A) 0.1 k/uL (0-0.2); Basophils % (A) 1 %; CHCM 30.7; Eosinophils # (A) 0.1 k/uL (0-0.7); Eosinophils % (A) 1 %; HCT 38.4 % (39.0-53.0); HDW 2.53; HGB 11.9 gm/dL (13.0-17.5); Hypochromasia Slight; Luc # (Auto) 0.15; Luc % (Auto) 2; Lymphocytes # (A) 1.1 k/uL (1.0-4.8); Lymphocytes % (A) 14 %; MCH 29.2 pg (25.0-35.0); MCHC 30.9 g/dL (31.0-37.0); MCV 94.7 fL (80.0-100.0); Mean Platelet Volume 6.6; Monocytes # (A) 0.3 k/uL (0-1.0); Monocytes % (A) 4 %; Neutrophils % (A) 78 %; RBC 4.06 m/uL (4.30-5.90); RDW 16.7 % (11.5-15.5); WBC 7.8 k/uL (3.8-10.6); WBC (Perox) 8.62
[2017-02-01 09:00] LABS: Prothrombin Time 19.7 sec (9.0-12.0)
[2017-02-01 09:11] LABS: Anion Gap 11 mmol/L; Blood Urea Nitrogen 20 mg/dL (9-20); Calcium 9.3 mg/dL (8.4-10.2); Carbon Dioxide 24 mmol/L (22-30); Chloride 102 mmol/L (98-107); Glucose 86 mg/dL (74-99); Non-African American GFR(MDRD) >60 (>60 ml/min/1.73 sqM); Sodium 137 mmol/L (137-145)
[2017-02-01 11:53] LABS: Glucose,Whole Blood 85 mg/dL (75-99)
[2017-02-01] MEDS ORDERED: LIDOCAINE 2% INJ 20 MG/ML SQ ONE (13:00)
--- NOTE | 2017-02-01 14:14 | P.DS ---
Providers Date of admission: 01/25/17 14:13 Expected date of discharge: 02/01/17 Attending physician: Last Orona Consults: 01/25/17 23:46 Consult Physician Routine Consulting Provider: Jorge Langston Consult Reason/Comments: elevated troponins Do you want consulting provider notified?: Yes, Notify in am 01/26/17 04:37 Consult Physician Routine Consulting Provider: Tonny Quinones Consult Reason/Comments: positive blood cultures Do you want consulting provider notified?: Yes, Notify in am Primary care physician: [facility] Hospital Course: Patient is a 76-year-old male, patient of Dr. 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 Patient admitted with severe lumbar back pain and history of fevers. Cardiology was consulted with possible concern for endocarditis however ISIDRO negative for vegetation. Blood and urine cultures with evidence of enterococcus with prostate ruled out as possible source of infection. Patient was seen and evaluated by Dr. Quinones from infectious disease service who recommended that patient be discharged home on IV ampicillin after receiving PICC line. Patient improved significantly during her hospital stay and was deemed stable for discharge to home with home care. Discharge diagnoses: 1. Acute back pain and pleurisy, present on admission, suspect secondary to enterococcus faecalis found in both blood and urine cultures. 2. Chronic atrial fibrillation. 3. Increased BUN on admission suspect secondary to secondary to dehydration with history of decreased oral intake, resolved. 4. Elevated troponin, present on admission, suspect secondary to infectious process. 5. History of heart failure, suspect diastolic. 6. Hyperlipidemia. 7. Hypertension. 8. History of lumbar back fusion. 9. History of aortic valve replacement, bovine. 10. History of nicotine dependence. 11. Elevated d-dimer. CTA chest with no evidence for pulmonary embolism. 12. Ascending aortic aneurysm measuring approximately 4.6 cm. 13. Nodular density within the right middle lobe measuring 5 mm that is noncalcified. 14. Liver with questionable nodular contour with possible cirrhosis. 15. History of constipation. 16. Pulmonary artery hypertension. 17. Anemia suspect iron deficiency. The above impression and plan have been discussed and directed by Dr. Garza. Crystal GALLO acting as scribe for Dr. Garza. Pertinent Studies: Chest x-ray; lumbar spine CT; EKG; echocardiogram with Doppler; chest CTA; abdomen/bladder ultrasound Procedures: Transesophageal echocardiogram; insertion of PICC line Patient Condition at Discharge: Good Plan - Discharge Summary New Discharge Prescriptions: Docusate [Colace] 100 mg PO BID #60 cap amLODIPine [Norvasc] 5 mg PO DAILY #30 tab Discharge Medication List Allopurinol [Zyloprim] 200 mg PO DAILY 01/25/17 [History] Ferrous Sulfate [Iron (65 MG Elemental)] 325 mg PO DAILY 01/25/17 [History] Hydrocodone/Acetaminophen [[place] 10-325] 1 tab PO Q6H PRN 01/25/17 [History] Krill Oil 500 mg PO DAILY 01/25/17 [History] Lansoprazole 30 mg PO DAILY 01/25/17 [History] Metoprolol Tartrate 25 mg PO BID 01/25/17 [History] Simvastatin [Zocor] 20 mg PO HS 01/25/17 [History] Warfarin [Coumadin] 5 mg PO DAILY 01/25/17 [History] Aspirin 81 mg PO DAILY chew 02/01/17 [Rx] Docusate [Colace] 100 mg PO BID #60 cap 02/01/17 [Rx] amLODIPine [Norvasc] 5 mg PO DAILY #30 tab 02/01/17 [Rx] Follow up Appointment(s)/Referral(s): Last Orona Jr, DO [Primary Care Provider] - 1-2 days [facility], [NON-STAFF] - Patient Instructions/Handouts: Urinary Tract Infection in Men (DC), Bacteremia (DC) Discharge Disposition: HOME WITH HOME HEALTH SERVICES
[2017-02-01 15:29] VITALS: BP 112/55; TEMP 98.4
[2017-02-01] MEDS: WARFARIN 5 MG TAB PO SCH (17:06)
[2017-02-01 17:24] LABS: Glucose,Whole Blood 92 mg/dL (75-99)
--- NOTE | 2017-02-01 22:48 | P.PN ---
Subjective Principal diagnosis: Weakness This is a 76-year-old male that gives history of eating Indonesian salad last week and approximate 5-6 hours later starting having a fever up to 104. He states he had a fever of 104 for 2 days and was using ice to help it. By Monday, his temperature was down to 99. Following that, he developed lumbar back pain which is been so severe that he was not able to move and other people could not help him to move and it's gradually went up his back to the low thoracic area and now comes around under his diaphragm and is causing spasm- like pain. He denies any injuries or falls. He does have history of 3 packs fusions in the past the last one was 10 years ago and he has had no back pain since then. 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 He states he has had decreased appetite prior to that and has continued to have decreased appetite since the heart surgery. He also has history of atrial fibrillation and has been on long-term Coumadin for many years. Patient presented to [facility] emergency center was found to be afebrile, white count of 12.8, troponins were 0.097, 0.084 and 0.044. Cardiology is on consult and echocardiogram has been done. Influenza A and B are negative. Patient denies having any nasal congestion, drainage, cough, sore throat. He does state he has had body aches. Urinalysis was cloudy, blood small, nitrate and leukoesterase negative. Chest x-ray shows correlate for pulmonary venous hypertension and interstitial edema, heart failure. CAT scan of the lumbar spine with contrast shows extensive postsurgical and degenerative changes in the lumbar spine. No suspicious well formed fluid collection or abscess seen. No acute fracture. Patient has traveled extensively throughout [place], [place], [place], [place], [place] and etc. He states all immunizations have been up to date for travel. He was also stationed in [facility] in the [facility] in the 1960s as well as stationed in [facility]. His last travel was last summer to [place]. At this time, in general he is feeling improvement. He has been on vancomycin. Blood culture obtained in the ER is showing gram-positive cocci in pairs and chains. Patient does state that he has had some decreased oral intake and urine is a strong yellow color but he has not had any dysuria, frequency. Is noted patient evidence of bacteremia. Gram-positive cocci were seen. Concerns were with strep infection given the Gram stain but also concerns of possible staph. Cultures without evidence of listeria. No evidence of gram- negative organisms either. Cultures have shown that both the urine and the blood have evidence of enterococcus. The ultrasound without obstruction and PSA not elevated. The patient has had PICC placed and antibiotic therapy has been arranged. Objective - Vital Signs Vital signs: Vital Signs Temp 98.4 F 02/01/17 15:00 Pulse 62 02/01/17 15:00 Resp 20 02/01/17 15:30 BP 112/55 02/01/17 15:00 Pulse Ox 97 02/01/17 15:00 Intake & Output 02/01/17 02/01/17 02/02/17 06:59 18:59 06:59 Intake Total 240 360 Balance 240 360 Weight 76 kg 76 kg Intake: Oral 240 360 Other: # Voids 1 2 - Exam Gen: This is a 76-year-old male. He is found in bed and appears to be in no acute distress. HEENT: Head is atraumatic, normocephalic. Pupils equal, round. Sclerae is anicteric. conjunctiva pink. Mucous members of the mouth are moist. No thrush noted. Dentition is in fair order for age. NECK: Supple. No JVD. No lymphadenopathy. No thyromegaly. LUNGS: Clear to auscultation. No wheezes or rhonchi. No intercostal retractions. HEART: Irregular. 2/6 systolic murmur. ABDOMEN: Soft. Bowel sounds are present. No masses. No tenderness. BACK: patient has mild tenderness to the low thoracic area as well as left side of the spine at approximate L4. Surgical wounds noted to the lumbar area. All are completely healed. No swollen areas, deformities noted. No rashes noted. straight leg lift is negative. Foot push pulls strong and equal bilaterally. EXTREMITIES: No pedal edema. No calf tenderness. NEUROLOGICAL: Patient is awake, alert and oriented x3. Feeling considerably better today. - Labs CBC & Chem 7: 02/01/17 08:17 02/01/17 08:17 Labs: Abnormal Lab Results - Last 24 Hours (Table) 02/01/17 02/01/17 Range/Units 08: 08:17 RBC 4.06 L (4.30-5.90) m/uL Hgb 11.9 L (13.0-17.5) gm/dL Hct 38.4 L (39.0-53.0) % MCHC 30.9 L (31.0-37.0) g/dL RDW 16.7 H (11.5-15.5) % PT 19.7 H (9.0-12.0) sec Microbiology - Last 24 Hours (Table) 01/28/17 06:24 Blood Culture - Preliminary Blood No Growth after 96 hours 01/28/17 06:37 Blood Culture - Preliminary Blood No Growth after 96 hours Laboratory Results WBC 7.8 k/uL (3.8-10.6) 02/01/17 08:17 RBC 4.06 m/uL (4.30-5.90) L 02/01/17 08:17 Hgb 11.9 gm/dL (13.0-17.5) L 02/01/17 08:17 Hct 38.4 % (39.0-53.0) L 02/01/17 08:17 MCV 94.7 fL (80.0-100.0) 02/01/17 08:17 MCH 29.2 pg (25.0-35.0) 02/01/17 08:17 MCHC 30.9 g/dL (31.0-37.0) L 02/01/17 08:17 RDW 16.7 % (11.5-15.5) H 02/01/17 08:17 Plt Count 321 k/uL (150-450) 02/01/17 08:17 Neutrophils % 78 % 02/01/17 08:17 Lymphocytes % 14 % 02/01/17 08:17 Monocytes % 4 % 02/01/17 08:17 Eosinophils % 1 % 02/01/17 08:17 Basophils % 1 % 02/01/17 08:17 Neutrophils # 6.0 k/uL (1.3-7.7) 02/01/17 08:17 Lymphocytes # 1.1 k/uL (1.0-4.8) 02/01/17 08:17 Monocytes # 0.3 k/uL (0-1.0) 02/01/17 08:17 Eosinophils # 0.1 k/uL (0-0.7) 02/01/17 08:17 Basophils # 0.1 k/uL (0-0.2) 02/01/17 08:17 Hypochromasia Slight 02/01/17 08:17 Anisocytosis Slight 02/01/17 08:17 ESR 83 mm/hr (0-15) H 01/27/17 05:45 PT 19.7 sec (9.0-12.0) H 02/01/17 08:17 INR 2.0 (<1.1) 02/01/17 08:17 APTT 33.4 sec (22.0-30.0) H 01/25/17 14:00 D-Dimer 2.57 mg/L FEU (<0.60) H 01/26/17 08:32 Sodium 137 mmol/L (137-145) 02/01/17 08:17 Potassium 5.0 mmol/L (3.5-5.1) 02/01/17 08:17 Chloride 102 mmol/L (98-107) 02/01/17 08:17 Carbon Dioxide 24 mmol/L (22-30) 02/01/17 08:17 Anion Gap 11 mmol/L 02/01/17 08:17 BUN 20 mg/dL (9-20) 02/01/17 08:17 Creatinine 0.80 mg/dL (0.66-1.25) 02/01/17 08:17 Est GFR (MDRD) Af Amer >60 (>60 ml/min/1.73 sqM) 02/01/17 08:17 Est GFR (MDRD) Non-Af >60 (>60 ml/min/1.73 sqM) 02/01/17 08:17 Glucose 86 mg/dL (74-99) 02/01/17 08:17 POC Glucose (mg/dL) 92 mg/dL (75-99) 02/01/17 17:20 POC Glu Survey Engineer KANIKA Mathieu [place] 02/01/17 17:20 Plasma Lactic Acid Francisco Javier 1.0 mmol/L (0.7-2.0) 01/25/17 11:35 Calcium 9.3 mg/dL (8.4-10.2) 02/01/17 08:17 Total Bilirubin 1.5 mg/dL (0.2-1.3) H 01/25/17 11:35 AST 38 U/L (17-59) 01/25/17 11:35 ALT 49 U/L (21-72) 01/25/17 11:35 Alkaline Phosphatase 105 U/L (38-126) 01/25/17 11:35 Total Creatine Kinase 56 U/L (55-170) 01/25/17 23:20 CK-MB (CK-2) 3.3 ng/mL (0.0-2.4) H* 01/25/17 23:20 CK-MB (CK-2) Rel Index 5.9 01/25/17 23:20 Troponin I 0.044 ng/mL (0.000-0.034) H* 01/25/17 23:20 C-Reactive Protein 316.5 mg/L (<10.0) H 01/26/17 08:32 NT-Pro-B Natriuret Pep 3890 pg/mL 01/26/17 08:32 Total Protein 6.6 g/dL (6.3-8.2) 01/25/17 11:35 Albumin 3.4 g/dL (3.5-5.0) L 01/25/17 11:35 Prealbumin 11 mg/dL (18-36) L 01/26/17 08:32 Triglycerides 53 mg/dL (<150) 01/25/17 11:32 Cholesterol 107 mg/dL (<200) 01/25/17 11:32 LDL Cholesterol, Calc 30 mg/dL (0-99) 01/25/17 11:32 HDL Cholesterol 66 mg/dL (40-60) H 01/25/17 11:32 Free PSA Not Performed ng/mL 01/28/17 12:18 % Free PSA Not Performed % 01/28/17 12:18 Total PSA 1.1 ng/mL (0.1 - 4.0) 01/28/17 12:18 Urine Color Yellow 01/25/17 11:38 Urine Appearance Cloudy (Clear) 01/25/17 11:38 Urine pH 5.5 (5.0-8.0) 01/25/17 11:38 Ur Specific [place] 1.017 (1.001-1.035) 01/25/17 11:38 Urine Protein 3+ (Negative) H 01/25/17 11:38 Urine Glucose (UA) Negative (Negative) 01/25/17 11:38 Urine Ketones Negative (Negative) 01/25/17 11:38 Urine Blood Small (Negative) H 01/25/17 11:38 Urine Nitrite Negative (Negative) 01/25/17 11:38 Urine Bilirubin Negative (Negative) 01/25/17 11:38 Urine Urobilinogen 3.0 mg/dL (<2.0) 01/25/17 11:38 Ur Leukocyte Esterase Negative (Negative) 01/25/17 11:38 Urine RBC 1 /hpf (0-5) 01/25/17 11:38 Urine WBC 4 /hpf (0-5) 01/25/17 11:38 Granular Casts 10 /lpf (0) 01/25/17 11:38 Urine Mucus Rare /hpf (None) H 01/25/17 11:38 Gentamicin Peak 3.7 ug/mL 01/30/17 08:26 Gentamicin Trough 1.2 ug/mL 01/30/17 05:48 Vancomycin Trough 16.8 ug/mL 01/28/17 06:24 Influenza Type A RNA Not Detected (Not Detectd) 01/25/17 11:35 Influenza Type B (PCR) Not Detected (Not Detectd) 01/25/17 11:35 Microbiology 01/28/17 06:24 Blood Blood Culture - Preliminary No Growth after 96 hours 01/28/17 06:37 Blood Blood Culture - Preliminary No Growth after 96 hours 01/26/17 08:32 Blood Blood Culture - Final 01/26/17 09:15 Blood Blood Culture - Final 01/26/17 08:32 Blood Blood Culture Gram Stain - Final 01/26/17 08:32 Blood Blood Culture - Final Enterococcus faecalis 01/26/17 09:15 Blood Blood Culture Gram Stain - Final 01/26/17 09:15 Blood Blood Culture - Final Enterococcus faecalis 01/26/17 11:48 Urine,Clean Catch Urine Culture - Final Enterococcus faecalis 01/25/17 11:35 Blood Blood Culture Gram Stain - Final 01/25/17 11:35 Blood Blood Culture - Final Enterococcus faecalis 01/25/17 11:35 Blood Blood Culture - Preliminary Assessment and Plan (1) Atrial fibrillation Narrative/Plan: 76-year-old who has a history of aortic valve replacement. Has been doing relatively well until the sudden onset of the febrile illness. This was with significant pain in his lower back. Imaging studies were done including a computed tomography scan failed reveal evidence of an abscess to the spine or to the musculature of the spine. Did not reveal evidence of any abscess to the colon or retroperitoneal structures. Patient is feeling somewhat better is now having some ongoing pain at that site. Well treated with current Dilaudid dose. He otherwise is feeling somewhat better. The fevers and chills have definitely improved. Does feel better than admission. We discussed that enterococcus is the nicely from his blood which is of great concern given his history of the aortic valve replacement. Transesophageal echocardiogram was performed. Negative for evidence of any vegetations. Valve function was normal no evidence of any other concerns were noted on the echocardiogram and other valves. Consulate follow blood cultures are requested until there is clearance of his bacteremia. Antibiotic therapy was altered to ampicillin plus gentamicin while final cultures are pending. No evidence of Listeria or other bacterial infection at this time. Leukocytosis has improved Back pain is improved but not resolved. Etiology of the bacteremia likely related to the urinary system given the isolation also with enterococcus in the urine. Renal ultrasound has been performed without evidence of obstruction. However does have abnormal kidneys with multiple cysts. No masses were noted. Follow up blood culture that is negative at 48 hours. PICC line placed. Was held due to the high INR An and plan the outpatient intravenous antibiotic therapy for his enterococcal bacteremia. Working for his outpatient intravenous antibiotic therapy.Discharge today PSA has returned as normal, making prostatitis unlikely. Consequently since the blood cultures are negative may then discontinue the gentamicin therapy. Fortunately the ISIDRO did not show evidence of aortic valve endocarditis on the bioprosthetic valve. Status: Acute (2) Enterococcal bacteremia Status: Acute (3) Enterococcus UTI Status: Acute
--- NOTE | 2017-02-03 13:02 | IR ---
PICC LINE PLACEMENT: HISTORY: Infection requiring long-term antibiotic therapy PROCEDURE: Ultrasound and fluoroscopic guidance of PICC line placement. COMPLICATIONS: None ANESTHESIA: 1. 1% Lidocaine locally. FINDINGS/TECHNIQUE: The procedure was explained to the patient. The risks, complications, benefits and alternatives were discussed and any questions were answered. Informed consent was obtained. The patient was placed supine on the fluoroscopic table and prepped and draped in the usual sterile critical access hospital ion. Utilizing a 21 gauge needle and sonographic and fluoroscopic guidance, access in the [ ] was a chieved and there is placement of a 0.018 guidewire. The vein is patent. A 4-F. Sheath was placed o dayanara the guidewire. The guidewire and dilator were removed and a 4-F. PICC line was placed through th e sheath with the tip at the level of the SVC. The sheath was removed, the catheter was flushed and sutured into position. The patient was stable throughout the procedure and remained stable upon disc harge from the Department of Radiology. The vein puncture was patent under ultrasound. A rosales scale image was obtained to document patency of the vein punctured. All elements of the maximal barrier technique were utilized. FLUOROSCOPY TIME: 0.3 minute IMPRESSION: Successful PICC line placement under ultrasound and fluoroscopic guidance.
== END 2017-02-01 18:54 | disposition home health service (06) | DRG 690 ==
LOC: EC 10:22 → 6SEL 14:13 → 4MS4W 01-30 17:59
PROVIDERS: ADMIT Family Medicine; ATTEND Family Medicine
PROC: 02HV33Z Insertion of Infusion Device into Superior Vena Cava, Percutaneous Approach (ICD-10-PCS; principal; 2017-02-01 12:49)
PROC: B518ZZA Fluoroscopy of Superior Vena Cava, Guidance (ICD-10-PCS; 2017-02-01 12:49)
DX: N39.0 Urinary tract infection, site not specified (principal); I27.2 Other secondary pulmonary hypertension; R78.81 Bacteremia; I11.0 Hypertensive heart disease with heart failure; I50.32 Chronic diastolic (congestive) heart failure; I48.1 Persistent atrial fibrillation; B95.2 Enterococcus as the cause of diseases classified elsewhere; D64.9 Anemia, unspecified; I07.1 Rheumatic tricuspid insufficiency; R09.1 Pleurisy; E78.5 Hyperlipidemia, unspecified; H91.90 Unspecified hearing loss, unspecified ear; I48.2 Chronic atrial fibrillation; I49.3 Ventricular premature depolarization; I71.2 Thoracic aortic aneurysm, without rupture; K21.9 Gastro-esophageal reflux disease without esophagitis; K59.00 Constipation, unspecified; M10.9 Gout, unspecified; M19.90 Unspecified osteoarthritis, unspecified site; Z79.01 Long term (current) use of anticoagulants; Z79.899 Other long term (current) drug therapy; Z87.891 Personal history of nicotine dependence; Z95.3 Presence of xenogenic heart valve; Z96.1 Presence of intraocular lens; Z96.651 Presence of right artificial knee joint; R91.1 Solitary pulmonary nodule
CPT/HCPCS: 36415; 36569; 71020; 71275; 72132; 76770; 76937; 77001; 80048; 80053; 80061; 80170; 80202; 81001; 82550; 82553; 83605; 83880; 84134; 84153; 84484; 85025; 85379; 85610; 85652; 85730; 86140; 87040; 87077; 87086; 87186; 87502; 93005; 93306; 93312; 93320; 93325; 96374; 96375; 99285

== ENCOUNTER 2017-06-07 10:39 | Day surgery (SDC) | payer MEDICARE ==
[2017-06-05 09:13] VITALS: BMI 26.2
[~2017-06-07 10:39] MED LIST: LACTATED RINGERS 1,000 ML IV SCH; LIDOCAINE 1% 20 ML VIAL (10MG/ML) FOR IV START INTRADERMA PRN
[2017-06-07 10:59] VITALS: TEMP 97.6
[2017-06-07] MEDS ORDERED: PROPOFOL 10 MG/ML 20 ML VIAL IV ONE (11:37)
--- NOTE | 2017-06-07 12:15 | P.PCN ---
Date of Procedure: 06/07/17 Preoperative Diagnosis: Postoperative Diagnosis: Procedure(s) Performed: BRIEF HISTORY: Patient is a 77-year-old pleasant white male, scheduled for an elective colonoscopy as a part of evaluation of Hemoccult-positive stool. PROCEDURE PERFORMED: Colonoscopy with snare polypectomy. PREOPERATIVE DIAGNOSIS: Hemoccult-positive stool. IV sedation per Anesthesia. PROCEDURE: After informed consent was obtained, the patient, was brought into the endoscopy unit. IV sedation was administered by Anesthesia under continuous monitoring. Digital rectal examination was normal. Initially the Olympus CF- 160 flexible video colonoscope was then inserted in the rectum, gradually advanced into the cecum without any difficulty. Careful examination was performed as the scope was gradually being withdrawn. Ileocecal valve and the appendiceal orifice were visualized and appeared normal. Prep was excellent. Mucosa of the cecum, appeared normal. In the ascending colon there was a 2 cm broad-based polyp that was removed by snare polypectomy. In the hepatic flexure there was another 2 cm polyp that was removed by snare polypectomy. In the descending colon is a 2.5 cm broad-based polyp removed by piecemeal snare polypectomy. In the sigmoid colon there was a 1 cm polyp removed by snare polypectomy. The rest of the ascending colon, transverse colon, descending colon, sigmoid colon, and rectum appeared normal. Retroflexion was performed in the rectum and no lesions were seen. The patient tolerated the procedure well. IMPRESSION: 2 cm broad-based ascending colon polyp status post polypectomy 1 m broad-based hepatic flexure polyp serous was snare polypectomy 2.5 cm broad-based ascending colon polyp serous was snare polypectomy 1 cm sigmoid polyp status post snare polypectomy RECOMMENDATIONS: Findings of this examination were discussed with the patient as well as his family. He was advised to follow with the biopsy results. If the biopsy shows a tubular adenoma he can have a repeat colonoscopy in 2 years. He was advised to hold off on Coumadin for 3 more days and resume it on Monday. Implants: Indications for Procedure: Operative Findings: Description of Procedure:
[2017-06-07 12:41] VITALS: BP 138/70; PULSE 60; RESP 18
== END 2017-06-07 13:06 | disposition home or self-care (01) ==
LOC: ORWHC2ENDO 10:39
PROVIDERS: ATTEND Internal Medicine Gastroenterology
DX: D12.4 Benign neoplasm of descending colon (principal); D12.3 Benign neoplasm of transverse colon; D12.5 Benign neoplasm of sigmoid colon; D12.2 Benign neoplasm of ascending colon; I10 Essential (primary) hypertension; E78.5 Hyperlipidemia, unspecified; K21.9 Gastro-esophageal reflux disease without esophagitis; Z79.01 Long term (current) use of anticoagulants; Z79.891 Long term (current) use of opiate analgesic; Z79.899 Other long term (current) drug therapy; Z95.0 Presence of cardiac pacemaker
CPT/HCPCS: 45385; 88305; J2704

== ENCOUNTER → 2020-04-03 | Outpatient (CLI) | payer MEDICARE ==
--- NOTE | 2020-04-03 18:55 | ECHOF ---
Referral Reason:I49.5 Sick sinus syndrome, Z95.0 Presence of cardi MEASUREMENTS -------- HEIGHT: 170.2 cm WEIGHT: 77.1 kg BP: RVIDd: 4.6 cm (< 3.3) IVSd: 1.3 cm (0.6 - 1.1) LVIDd: 4.5 cm (3.9 - 5.3) LVPWd: 1.2 cm (0.6 - 1.1) IVSs: 1.8 cm LVIDs: 3.5 cm LVPWs: 1.5 cm LAESV Index (A-L): 65.20 ml/m Ao Diam: 3.2 cm (2.0 - 3.7) AV Cusp: 1.6 cm (1.5 - 2.6) LA Diam: 4.8 cm (2.7 - 3.8) MV EXCURSION: 20.651 mm (> 18.000) MV EF SLOPE: 50 mm/s (70 - 150) EPSS: 1.0 cm MV E Elmer: 1.42 m/s MV DecT: 225 ms MV A Elmer: 0.39 m/s MV E/A Ratio: 3.65 AV maxP.22 mmHg AV meanP.20 mmHg AR PHT: 713 ms RAP: 15.00 mmHg RVSP: 45.99 mmHg FINDINGS -------- Paced rhythm. Pacerwire seen in RV and RA. This was a technically good study. The left ventricular size is normal. There is mild concentric left ventricular hypertrophy. Overa ll left ventricular systolic function is mildly impaired with, an EF between 45 - 50 %. There is pa radoxical/dysynergic septal motion consistent with right ventricular volume overload and/or elevated right ventricular end-diastolic pressure. Left ventricular fillimg pressure cannot be estimated due to paced rhythm. The right ventricle is severely enlarged. LA is severely dilated >40 ml/m2 RA appears enlarged. Possible PFO Peak/mean gradient across the Aortic Valve is 18.22mmHg / 10.20mmHg. Normally functioning bioprosth etic valve. There is trivial regurgitation of the bioprosthetic aortic valve. The mitral valve is normal. The mitral valve leaflets are mildly thickened. Mild mitral annular c alcification present. Moderate mitral regurgitation is present. The tricuspid valve appears structurally normal. Moderate to severe tricuspid regurgitation present . There is mild pulmonary hypertension. The right ventricular systolic pressure, as measured by D oppler, is 45.99mmHg. There is no pulmonic regurgitation present. The aortic root size is normal. The inferior vena cava is mildly dilated but collapses. There is no pericardial effusion. CONCLUSIONS -------- 1. Paced rhythm. 2. Pacerwire seen in RV and RA. 3. This was a technically good study. 4. The left ventricular size is normal. 5. There is mild concentric left ventricular hypertrophy. 6. Overall left ventricular systolic function is mildly impaired with, an EF between 45 - 50 %. 7. There is paradoxical/dysynergic septal motion consistent with right ventricular volume overload an d/or elevated right ventricular end-diastolic pressure. 8. Left ventricular fillimg pressure cannot be estimated due to paced rhythm. 9. The right ventricle is severely enlarged. 10. LA is severely dilated >40 ml/m2 11. RA appears enlarged. 12. Possible PFO 13. Peak/mean gradient across the Aortic Valve is 18.22mmHg / 10.20mmHg. 14. Normally functioning bioprosthetic valve. 15. There is trivial regurgitation of the bioprosthetic aortic valve. 16. The mitral valve is normal. 17. The mitral valve leaflets are mildly thickened. 18. Mild mitral annular calcification present. 19. Moderate mitral regurgitation is present. 20. The tricuspid valve appears structurally normal. 21. Moderate to severe tricuspid regurgitation present. 22. There is mild pulmonary hypertension. 23. The right ventricular systolic pressure, as measured by Doppler, is 45.99mmHg. 24. There is no pulmonic regurgitation present. 25. The aortic root size is normal. 26. The inferior vena cava is mildly dilated but collapses. 27. There is no pericardial effusion. TECHNICAL TRAINING INSTRUCTOR: Kely Owens RDCS
== END | disposition home or self-care (01) ==
LOC: RADECHMAIN 13:43
PROVIDERS: ATTEND Family Medicine
DX: I08.3 Combined rheumatic disorders of mitral, aortic and tricuspid valves (principal); I27.20 Pulmonary hypertension, unspecified; I49.5 Sick sinus syndrome; Z95.0 Presence of cardiac pacemaker
CPT/HCPCS: 93306

== ENCOUNTER → 2020-12-14 | Outpatient (CLI) | payer MEDICARE ==
--- NOTE | 2020-12-14 16:16 | XR ---
EXAMINATION TYPE: XR abdomen 2V DATE OF EXAM: 12/14/2020 CLINICAL DATA: 80-year-old male constipation for several months, anemia. K59.03, Z95.2, D50.8, PHH COMPARISON: None FINDINGS: Mild to moderate colonic stool in the right side of the abdomen. Unable to exclude abnormal tapering and narrowing along the lower descending colon on one of the supine images. On the upright image, no evidence for free intraperitoneal air. Nonspecific scattered small bowel air is present. No air-fluid levels. No dilated small bowel. Lower lumbar fusion changes. Advanced degenerative disc disease abov e the fusion, likely L2-L4. IMPRESSION: On one of the supine images, unable to exclude tapering and narrowing of the lower descending colon. Consider contrast-enhanced CT to exclude an annular mass or significant colitis. Moderate stool in th e right-sided the abdomen. No evidence for free air or bowel obstruction.
== END | disposition home or self-care (01) ==
LOC: RADXRMAIN 10:59
PROVIDERS: ATTEND Family Medicine
DX: R19.5 Other fecal abnormalities (principal); Z95.2 Presence of prosthetic heart valve
CPT/HCPCS: 74019

== ENCOUNTER 2020-12-18 08:39 | Inpatient (IN) | payer MEDICARE, BC ==
[2020-12-18] MEDS ORDERED: SODIUM CHLORIDE 0.9% 500 ML 500 ML IV STA (09:01)
[2020-12-18] MEDS ORDERED: SODIUM CHLORIDE 0.9% 1,000 ML IV STA (09:01)
--- NOTE | 2020-12-18 09:07 | ED ---
Abdominal Pain HPI - General Chief Complaint: Abdominal Pain Stated Complaint: Constipation Time Seen by Provider: 12/18/20 08:50 Source: patient, RN notes reviewed Mode of arrival: ambulatory Limitations: no limitations - History of Present Illness Initial Comments: this is a 80-year-old male with no prior abdominal surgery history who states he been constipated recently. He states that his last bowel movement was probably over 24 hours ago he's become very distended with a tense abdomen he states he normally has a flat abdomen. He states that he is passing a small amount of gas no bowel movements he states he's had decreased oral intake with respective food over last several days he is trying to take fluids however including the insurer. He has taken stool softeners but getting no relief.he denies any fevers chills or sweats no other symptoms. MD Complaint: abdominal pain - Related Data Home Medications Medication Instructions Recorded Confirmed Ferrous Sulfate [Iron (65 MG 325 mg PO MOWEFR 01/25/17 12/18/20 Elemental)] Hydrocodone/Acetaminophen [[place] 1 tab PO Q6H PRN 01/25/17 12/18/20 10-325] Krill Oil 500 mg PO DAILY 01/25/17 12/18/20 Metoprolol Tartrate 12.5 mg PO BID 01/25/17 12/18/20 Simvastatin [Zocor] 20 mg PO HS 01/25/17 12/18/20 Lansoprazole 30 mg PO DAILY 05/23/17 12/18/20 Apixaban [Eliquis] 5 mg PO BID 12/18/20 12/18/20 Furosemide [Lasix] 20 mg PO HS 12/18/20 12/18/20 Furosemide [Lasix] 40 mg PO DAILY 12/18/20 12/18/20 Lactose-Reduced Food [Ensure Plus] 237 ml PO DAILY 12/18/20 12/18/20 Multivit-Min/FA/Lycopen/Lutein 1 tab PO DAILY 12/18/20 12/18/20 [Centrum Silver Tablet] Potassium Chloride ER [K-Dur 10] 10 meq PO DAILY 12/18/20 12/18/20 Saw [place] 320 - 640 mg PO DAILY 12/18/20 12/18/20 Vitamin B Complex 1 cap PO DAILY 12/18/20 12/18/20 Vitamin D3(Unknown Dose) 1 tab PO BID 12/18/20 12/18/20 Zinc(Unknown) 1 tab PO DAILY 12/18/20 12/18/20 Previous Rx's Medication Instructions Recorded Docusate [Colace] 100 mg PO BID #60 cap 02/01/17 Allergies Allergy/AdvReac Type Severity Reaction Status Date / Time No Known Allergies Allergy Verified 12/18/20 11:05 Review of Systems ROS Statement: Those systems with pertinent positive or pertinent negative responses have been documented in the HPI. ROS Other: All systems not noted in ROS Statement are negative. Past Medical History Past Medical History: Atrial Fibrillation, Heart Failure, GERD/Reflux, Hearing Disorder / Deafness, Hyperlipidemia, Hypertension Additional Past Medical History / Comment(s): hx of gout, hx of kidney stones History of Any Multi-Drug Resistant Organisms: None Reported Past Surgical History: Back Surgery, Cardiac Valve Replacement, Joint Replacement Additional Past Surgical History / Comment(s): PICC line in and removed now,hx of cystoscopy for kidney stones, Bilateral cataract removal and intraocular lens implants, 3 back fusions of L4-5, aortic valve replacement with bovine at [facility] July 2016, right total knee arthroplasty Past Anesthesia/Blood Transfusion Reactions: No Reported Reaction Past Psychological History: No Psychological Hx Reported Smoking Status: Never smoker Past Alcohol Use History: None Reported Past Drug Use History: None Reported - Past Family History Father Family Medical History: Cancer Mother Family Medical History: No Reported History Son(s) Family Medical History: Cancer Additional Family Medical History / Comment(s): lung General Exam - General Exam Comments Initial Comments: this is a well-developed asthenic appearing male who is awake alert oriented 3 Limitations: no limitations General appearance: alert, anxious Head exam: Present: atraumatic, normocephalic, normal inspection Eye exam: Present: normal appearance, PERRL, EOMI. Absent: scleral icterus, conjunctival injection, periorbital swelling ENT exam: Present: normal exam, mucous membranes moist Neck exam: Present: normal inspection. Absent: tenderness, meningismus, lymphadenopathy Respiratory exam: Present: normal lung sounds bilaterally. Absent: respiratory distress, wheezes, rales, rhonchi, stridor Cardiovascular Exam: Present: regular rate, normal rhythm, normal heart sounds. Absent: systolic murmur, diastolic murmur, rubs, gallop, clicks GI/Abdominal exam: Present: distended, normal bowel sounds. Absent: tenderness, guarding, rebound, rigid, bruit, pulsatile mass Rectal exam: Present: deferred Extremities exam: Present: normal inspection, full ROM, normal capillary refill. Absent: tenderness, pedal edema, joint swelling, calf tenderness Back exam: Present: normal inspection Neurological exam: Present: alert, oriented X3, CN II-XII intact Psychiatric exam: Present: normal affect, normal mood Skin exam: Present: warm, dry, intact, normal color. Absent: rash Course Vital Signs 12/18/20 12/18/20 12/18/20 08:41 10:48 12:30 Temperature 98 F Pulse Rate 60 60 61 Respiratory 18 18 18 Rate Blood Pressure 142/74 149/91 132/79 O2 Sat by Pulse 96 98 97 Oximetry Medical Decision Making - Medical Decision Making I did discuss the findings with the patient and family as well as with Dr. Hunter patient will be admitted with consultation to GI and surgery. - Lab Data Result diagrams: 12/18/20 09:00 12/18/20 09:00 Lab Results 12/18/20 12/18/20 12/18/20 Range/Units 09:00 09:00 09:00 WBC 5.1 (3.8-10.6) k/uL RBC 3.98 L (4.30-5.90) m/uL Hgb 10.7 L (13.0-17.5) gm/dL Hct 34.5 L (39.0-53.0) % MCV 86.9 (80.0-100.0) fL MCH 26.9 (25.0-35.0) pg MCHC 31.0 (31.0-37.0) g/dL RDW 16.2 H (11.5-15.5) % Plt Count 208 (150-450) k/uL MPV 7.4 Neutrophils % 76 % Lymphocytes % 11 % Monocytes % 8 % Eosinophils % 3 % Basophils % 0 % Neutrophils # 3.9 (1.3-7.7) k/uL Lymphocytes # 0.6 L (1.0-4.8) k/uL Monocytes # 0.4 (0-1.0) k/uL Eosinophils # 0.2 (0-0.7) k/uL Basophils # 0.0 (0-0.2) k/uL Hypochromasia Slight Anisocytosis Slight PT 12.9 H (9.0-12.0) sec INR 1.2 H (<1.2) APTT 30.5 H (22.0-30.0) sec Sodium 135 L (137-145) mmol/L Potassium 4.4 (3.5-5.1) mmol/L Chloride 99 (98-107) mmol/L Carbon Dioxide 27 (22-30) mmol/L Anion Gap 9 mmol/L BUN 18 (9-20) mg/dL Creatinine 0.85 (0.66-1.25) mg/dL Est GFR (CKD-EPI)AfAm >90 (>60 ml/min/1.73 sqM) Est GFR (CKD-EPI)NonAf 82 (>60 ml/min/1.73 sqM) Glucose 84 (74-99) mg/dL Plasma Lactic Acid Francisco Javier (0.7-2.0) mmol/L Calcium 9.2 (8.4-10.2) mg/dL Total Bilirubin 1.0 (0.2-1.3) mg/dL AST 33 (17-59) U/L ALT 14 (4-49) U/L Alkaline Phosphatase 119 (38-126) U/L Creatine Kinase 126 (55-170) U/L Total Protein 7.6 (6.3-8.2) g/dL Albumin 3.7 (3.5-5.0) g/dL Amylase 55 (30-110) U/L Lipase 142 (23-300) U/L Urine Color Urine Appearance (Clear) Urine pH (5.0-8.0) Ur Specific [place] (1.001-1.035) Urine Protein (Negative) Urine Glucose (UA) (Negative) Urine Ketones (Negative) Urine Blood (Negative) Urine Nitrite (Negative) Urine Bilirubin (Negative) Urine Urobilinogen (<2.0) mg/dL Ur Leukocyte Esterase (Negative) 12/18/20 12/18/20 Range/Units 09:00 09:02 WBC (3.8-10.6) k/uL RBC (4.30-5.90) m/uL Hgb (13.0-17.5) gm/dL Hct (39.0-53.0) % MCV (80.0-100.0) fL MCH (25.0-35.0) pg MCHC (31.0-37.0) g/dL RDW (11.5-15.5) % Plt Count (150-450) k/uL MPV Neutrophils % % Lymphocytes % % Monocytes % % Eosinophils % % Basophils % % Neutrophils # (1.3-7.7) k/uL Lymphocytes # (1.0-4.8) k/uL Monocytes # (0-1.0) k/uL Eosinophils # (0-0.7) k/uL Basophils # (0-0.2) k/uL Hypochromasia Anisocytosis PT (9.0-12.0) sec INR (<1.2) APTT (22.0-30.0) sec Sodium (137-145) mmol/L Potassium (3.5-5.1) mmol/L Chloride (98-107) mmol/L Carbon Dioxide (22-30) mmol/L Anion Gap mmol/L BUN (9-20) mg/dL Creatinine (0.66-1.25) mg/dL Est GFR (CKD-EPI)AfAm (>60 ml/min/1.73 sqM) Est GFR (CKD-EPI)NonAf (>60 ml/min/1.73 sqM) Glucose (74-99) mg/dL Plasma Lactic Acid Francisco Javier 0.9 (0.7-2.0) mmol/L Calcium (8.4-10.2) mg/dL Total Bilirubin (0.2-1.3) mg/dL AST (17-59) U/L ALT (4-49) U/L Alkaline Phosphatase (38-126) U/L Creatine Kinase (55-170) U/L Total Protein (6.3-8.2) g/dL Albumin (3.5-5.0) g/dL Amylase (30-110) U/L Lipase (23-300) U/L Urine Color Yellow Urine Appearance Clear (Clear) Urine pH 7.0 (5.0-8.0) Ur Specific [place] 1.017 (1.001-1.035) Urine Protein Negative (Negative) Urine Glucose (UA) Negative (Negative) Urine Ketones Negative (Negative) Urine Blood Negative (Negative) Urine Nitrite Negative (Negative) Urine Bilirubin Negative (Negative) Urine Urobilinogen <2.0 (<2.0) mg/dL Ur Leukocyte Esterase Negative (Negative) - Radiology Data Radiology results: report reviewed ( evidence of obstruction at this time please see the complete report), image reviewed Disposition Clinical Impression: Ascites, Abdominal pain, Failure to thrive Disposition: ADMITTED IP TO THIS [facility] Condition: Fair Referrals: Last Orona Jr, [Primary Care Provider] - 1-2 days
[2020-12-18 09:11] LABS: Anisocytosis Slight; Basophils % (A) 0 %; Eosinophils # (A) 0.2 k/uL (0-0.7); Eosinophils % (A) 3 %; HCT 34.5 % (39.0-53.0); HGB 10.7 gm/dL (13.0-17.5); Hypochromasia Slight; Lymphocytes # (A) 0.6 k/uL (1.0-4.8); Lymphocytes % (A) 11 %; MCH 26.9 pg (25.0-35.0); MCV 86.9 fL (80.0-100.0); Mean Platelet Volume 7.4; Monocytes # (A) 0.4 k/uL (0-1.0); Monocytes % (A) 8 %; Neutrophils # (A) 3.9 k/uL (1.3-7.7); Neutrophils % (A) 76 %; Platelet Count 208 k/uL (150-450); RBC 3.98 m/uL (4.30-5.90); RDW 16.2 % (11.5-15.5); WBC 5.1 k/uL (3.8-10.6)
[2020-12-18 09:21] LABS: INR 1.2 (<1.2); Partial Thromboplastin Time 30.5 sec (22.0-30.0); Prothrombin Time 12.9 sec (9.0-12.0)
[2020-12-18 09:24] LABS: ALT 14 U/L (4-49); AST 33 U/L (17-59); African American GFR (CKD) >90 (>60 ml/min/1.73 sqM); Albumin 3.7 g/dL (3.5-5.0); Alkaline Phosphatase 119 U/L (38-126); Amylase 55 U/L (30-110); Anion Gap 9 mmol/L; Blood Urea Nitrogen 18 mg/dL (9-20); Calcium 9.2 mg/dL (8.4-10.2); Carbon Dioxide 27 mmol/L (22-30); Chloride 99 mmol/L (98-107); Creatine Kinase 126 U/L (55-170); Glucose 84 mg/dL (74-99); Lipase 142 U/L (23-300); Non-African American GFR(CKD) 82 (>60 ml/min/1.73 sqM); Potassium 4.4 mmol/L (3.5-5.1); Sodium 135 mmol/L (137-145); Total Protein 7.6 g/dL (6.3-8.2)
--- NOTE | 2020-12-18 10:35 | CT ---
EXAMINATION TYPE: CT abdomen pelvis w con DATE OF EXAM: 12/18/2020 COMPARISON: None INDICATION: constipation, bloating DLP: 1412.1 mGycm, Automated exposure control for dose reduction was used. CONTRAST: 100 mL of Isovue 300. Study performed without Oral Contrast TECHNIQUE: Axial images were obtained from above the diaphragm to the pubic rami in the axial plane a t 5 mm thick sections. Reconstructed images are reviewed on the computer in the coronal plane. FINDINGS: Limited CT sections are obtained the lung bases. Minimal compressive atelectasis within the right ras ng base. Some mild posterior lateral compressive atelectasis may be present as well. There is mild ca rdiomegaly. Coronary artery calcification is present.. CT ABDOMEN: Ascites is present throughout the abdomen. Liver: Mild lobation may be along the anterior right and left lobe liver. Consider developing cirrhos is. No discrete masses or cysts are identified. Spleen: Normal Pancreas: Slightly atrophic. No discrete masses or cysts. Adrenal glands: The adrenal glands are normal. Gallbladder: Normal Kidneys: No masses are evident. No hydronephrosis is present. There is a 6.6 cm superior medial rig ht renal cyst present measuring 5 Hounsfield units. Couple of tiny cortical renal cysts are likely pr esent. Inferior lateral right renal cyst is present measuring 2.6 cm and 9 Hounsfield units. Delayed images were obtained through the kidneys, which remain unremarkable. Aorta: Vascular calcification is within the aorta. Inferior vena cava: Normal. CT PELVIS: Loops of bowel within the abdomen and pelvis are normal. Scattered diverticuli are within the sigmoi d colon. Suspicious inflammatory changes to suggest acute diverticulitis is not identified. Some feca l debris is in the transverse colon. No dilated small bowel loops are evident. The study is perform ed without oral contrast limiting bowel evaluation. Appendix: Appendix appears nondilated and air-filled. Urinary bladder: Normal. Genitourinary structures: Prostate is prominent and contains calcification. Osseous structures: No suspicious lytic or sclerotic lesions. Postsurgical changes are at the L4-5 le shahid. Degenerative disc changes are present L3-4. IMPRESSIONS: 1. Large on degree of ascites. Cirrhosis could be considered. 2. Renal cysts. 3. Diverticulosis without acute diverticulitis. 4. Suspicious bowel abnormality is not otherwise evident 4. Prostate hypertrophy
[2020-12-18 11:04] LABS: Appearance,Urine Clear (Clear); Bilirubin,Urine Negative (Negative); Blood,Urine Negative (Negative); Color,Urine Yellow; Glucose,Urine (UA) Negative (Negative); Ketones,Urine Negative (Negative); Leukocyte Esterase,Urine Negative (Negative); Nitrite,Urine Negative (Negative); Protein,Urine Negative (Negative); Specific Gravity,Urine 1.017 (1.001-1.035); Urobilinogen,Urine <2.0 mg/dL (<2.0)
[2020-12-18] MEDS ORDERED: NALOXONE 0.4 MG/ML 1 ML VIAL IV PRN (12:50)
[2020-12-18] MEDS ORDERED: HYDROcodone/APAP 10-325MG 1 EACH TAB PO PRN (12:54)
[2020-12-18] MEDS ORDERED: SODIUM CHLORIDE 0.9% 1,000 ML IV SCH (13:00)
[2020-12-18] MEDS: FERROUS SULFATE 325 MG TAB PO SCH (14:20)
--- NOTE | 2020-12-18 16:14 | P.HPIM ---
History of Present Illness H&P Date: 12/18/20 Chief Complaint: Abdominal pain, ascites This is an 80-year-old gentleman with past medical history of chronic atrial fibrillation, heart failure, GERD, hyperlipidemia, hypertension, aortic valve replacement with bovine at [facility] in July 2016, 3 back fusi ons of L4-5, history of nicotine dependence and history of significant alcohol use. Reports he has had no wine in 21 days. Patient is a ,has traveled extensively throughout [place], [place], [place], [place], [place] and etc. Stationed in [employer] in [facility] , [place], [facility]. He presented to the ER with abdominal pain, distended abdomen, edema. A few days back patient had seen his PCP, Dr. Hunter regarding constipation, mild anemia and was placed on FeSO4 and Senokot. Patient states the medication worked, positive bowel movements. Denies nausea vomiting or diarrhea. Denies chest pain, palpitations. CT of abdomen and pelvis reported minimal compressive atelectasis, ascites present throughout the abdomen, mild limitation may be along the anterior right and left lobe liver, consider developing cirrhosis, multiple renal cysts including 6.6 cm superior medial right renal cyst, scattered diverticuli and sigmoid colon, some fecal debris. Afebrile, normal WBC, hemoglobin 10.7, MCV 86.9, platelets 208, INR 1.2, sodium 135, potassium 4.4, BUN 18, creatinine 0.85, lactic acid 0.9. T bili and LFTs within normal limits, UA negative, coronavirus not detected. Vital signs stable, maintaining O2 sats in the high 90s on room air. Review of Systems ROS Statement: Those systems with pertinent positive or pertinent negative responses have been documented in the HPI. ROS Other: All systems not noted in ROS Statement are negative. Past Medical History Past Medical History: Atrial Fibrillation, Heart Failure, GERD/Reflux, Hearing Disorder / Deafness, Hyperlipidemia, Hypertension Additional Past Medical History / Comment(s): hx of gout, hx of kidney stones History of Any Multi-Drug Resistant Organisms: None Reported Past Surgical History: Back Surgery, Cardiac Valve Replacement, Joint Replacement Additional Past Surgical History / Comment(s): PICC line in and removed now,hx of cystoscopy for kidney stones, Bilateral cataract removal and intraocular lens implants, 3 back fusions of L4-5, aortic valve replacement with bovine at [facility] July 2016, right total knee arthroplasty Past Anesthesia/Blood Transfusion Reactions: No Reported Reaction Past Psychological History: No Psychological Hx Reported Smoking Status: Never smoker Past Alcohol Use History: None Reported Past Drug Use History: None Reported - Past Family History Father Family Medical History: Cancer Mother Family Medical History: No Reported History Son(s) Family Medical History: Cancer Additional Family Medical History / Comment(s): lung Medications and Allergies Home Medications Medication Instructions Recorded Confirmed Type Ferrous Sulfate [Iron (65 MG 325 mg PO MOWEFR 01/25/17 12/18/20 History Elemental)] Hydrocodone/Acetaminophen [[place] 1 tab PO Q6H PRN 01/25/17 12/18/20 History 10-325] Krill Oil 500 mg PO DAILY 01/25/17 12/18/20 History Metoprolol Tartrate 12.5 mg PO BID 01/25/17 12/18/20 History Simvastatin [Zocor] 20 mg PO HS 01/25/17 12/18/20 History Docusate [Colace] 100 mg PO BID #60 cap 02/01/17 12/18/20 Rx Lansoprazole 30 mg PO DAILY 05/23/17 12/18/20 History Apixaban [Eliquis] 5 mg PO BID 12/18/20 12/18/20 History Furosemide [Lasix] 20 mg PO HS 12/18/20 12/18/20 History Furosemide [Lasix] 40 mg PO DAILY 12/18/20 12/18/20 History Lactose-Reduced Food [Ensure Plus] 237 ml PO DAILY 12/18/20 12/18/20 History Multivit-Min/FA/Lycopen/Lutein 1 tab PO DAILY 12/18/20 12/18/20 History [Centrum Silver Tablet] Potassium Chloride ER [K-Dur 10] 10 meq PO DAILY 12/18/20 12/18/20 History Saw [place] 320 - 640 mg PO DAILY 12/18/20 12/18/20 History Vitamin B Complex 1 cap PO DAILY 12/18/20 12/18/20 History Vitamin D3(Unknown Dose) 1 tab PO BID 12/18/20 12/18/20 History Zinc(Unknown) 1 tab PO DAILY 12/18/20 12/18/20 History Allergies Allergy/AdvReac Type Severity Reaction Status Date / Time No Known Allergies Allergy Verified 12/18/20 11:05 Physical Exam Vitals: Vital Signs Temp Pulse Resp BP Pulse Ox 12/18/20 14:17 98 F 60 18 113/67 96 12/18/20 12:30 61 18 132/79 97 12/18/20 10:48 60 18 149/91 98 12/18/20 08:41 98 F 60 18 142/74 96 Intake and Output 12/18/20 12/18/20 12/18/20 06:59 14:59 22:59 Other: Weight 81.647 kg PHYSICAL EXAM: VITAL SIGNS: As above GENERAL: Sitting up on stretcher, no acute distress HEENT: Conjunctivae normal. eyes normal. NECK: No JVD. No thyroid enlargement. No LNs CARDIOVASCULAR: S1, S2 regular. Systolic murmur. RESPIRATION: Breath sounds diminished in the bases. No rhonchi or crackles. No intercostal retractions ABDOMEN: Soft, distended, minimal fluid wave, positive ascites, nontender . No guarding. no masses palpable. Bowel sounds heard. LEGS: Positive edema, no calf tenderness, positive DP pulses PSYCHIATRY: Alert and oriented X3, mood and affect normal. NERVOUS SYSTEM: Cranial N 2-12 grossly normal. Moves all 4 limbs. No focal deficits. Strength and sensation grossly intact.. Skin: Warm and dry, no rash Lymphatic system. No LN neck axilla. Results CBC & Chem 7: 12/18/20 09:00 12/18/20 09:00 Labs: Abnormal Lab Results - Last 24 Hours (Table) 12/18/20 12/18/20 12/18/20 Range/Units 09:00 09:00 09:00 RBC 3.98 L (4.30-5.90) m/uL Hgb 10.7 L (13.0-17.5) gm/dL Hct 34.5 L (39.0-53.0) % RDW 16.2 H (11.5-15.5) % Lymphocytes # 0.6 L (1.0-4.8) k/uL PT 12.9 H (9.0-12.0) sec INR 1.2 H (<1.2) APTT 30.5 H (22.0-30.0) sec Sodium 135 L (137-145) mmol/L Assessment and Plan Assessment: Abdominal pain with new onset large ascites, possible cirrhosis though LFTs are within normal limits Recent constipation in a patient on [place] and iron daily, placed on Senokot, reports resolved Chronic atrial fibrillation, anticoagulated on Eliquis, last taken last night Renal cysts Diverticulosis without acute diverticulitis chronic CHF, diastolic dysfunction, possible mild component of acute, echo ordered Hypertension Hyperlipidemia Bovine aortic valve replacement at [facility] Ascending aortic aneurysm, history of Iron deficient anemia Pulmonary hypertension BPH Plan: Continue on current medication regime ,monitoring and symptomatic treatment. GI and surgery consults in place, recommendations pending. The patient will need paracentesis, Eliquis placed on hold. Low-sodium diet. The impression and plan of care has been dictated as directed. : I performed a history and examination of this patient, discussed the same with the dictator. I agree with the dictator's note ,documented as a scribe. Any additional findings or plans will be noted.
--- NOTE | 2020-12-18 17:08 | P.GSCN ---
History of Present Illness Consult date: 12/18/20 Reason for Consult: Abdominal distention History of present illness: The patient is a pleasant 80-year-old man who presented to the emergency room because of abdominal distention and constipation. As part of his workup he was found to have a very distended abdomen and computed tomography scan showed significant ascites. He said the abdomen has been slowly getting bigger over the last 3-4 months. The distention is affecting his appetite. No nausea or vomiting. No fevers. He has had the constipation. Dr. Neal did a colonoscopy on him 3 years ago and removed several small polyps. Denies blood in the stool or dark tarry stool. Denies any history of hepatitis. He says he used to drink quite a bit, 1-2 bottles of wine a day. No alcohol in about 21 months. Review of Systems All systems: negative Past Medical History Past Medical History: Atrial Fibrillation, Heart Failure, GERD/Reflux, Hearing Disorder / Deafness, Hyperlipidemia, Hypertension Additional Past Medical History / Comment(s): hx of gout, hx of kidney stones History of Any Multi-Drug Resistant Organisms: None Reported Past Surgical History: Back Surgery, Cardiac Valve Replacement, Joint Replacement Additional Past Surgical History / Comment(s): PICC line in and removed now,hx o f cystoscopy for kidney stones, Bilateral cataract removal and intraocular lens implants, 3 back fusions of L4-5, aortic valve replacement with bovine at [facility] July 2016, right total knee arthroplasty Past Anesthesia/Blood Transfusion Reactions: No Reported Reaction Past Psychological History: No Psychological Hx Reported Smoking Status: Never smoker Past Alcohol Use History: None Reported Past Drug Use History: None Reported - Past Family History Father Family Medical History: Cancer Mother Family Medical History: No Reported History Son(s) Family Medical History: Cancer Additional Family Medical History / Comment(s): lung Medications and Allergies Home Medications Medication Instructions Recorded Confirmed Type Ferrous Sulfate [Iron (65 MG 325 mg PO MOWEFR 01/25/17 12/18/20 History Elemental)] Hydrocodone/Acetaminophen [[place] 1 tab PO Q6H PRN 01/25/17 12/18/20 History 10-325] Krill Oil 500 mg PO DAILY 01/25/17 12/18/20 History Metoprolol Tartrate 12.5 mg PO BID 01/25/17 12/18/20 History Simvastatin [Zocor] 20 mg PO HS 01/25/17 12/18/20 History Docusate [Colace] 100 mg PO BID #60 cap 02/01/17 12/18/20 Rx Lansoprazole 30 mg PO DAILY 05/23/17 12/18/20 History Apixaban [Eliquis] 5 mg PO BID 12/18/20 12/18/20 History Furosemide [Lasix] 20 mg PO HS 12/18/20 12/18/20 History Furosemide [Lasix] 40 mg PO DAILY 12/18/20 12/18/20 History Lactose-Reduced Food [Ensure Plus] 237 ml PO DAILY 12/18/20 12/18/20 History Multivit-Min/FA/Lycopen/Lutein 1 tab PO DAILY 12/18/20 12/18/20 History [Centrum Silver Tablet] Potassium Chloride ER [K-Dur 10] 10 meq PO DAILY 12/18/20 12/18/20 History Saw [place] 320 - 640 mg PO DAILY 12/18/20 12/18/20 History Vitamin B Complex 1 cap PO DAILY 12/18/20 12/18/20 History Vitamin D3(Unknown Dose) 1 tab PO BID 12/18/20 12/18/20 History Zinc(Unknown) 1 tab PO DAILY 12/18/20 12/18/20 History Allergies Allergy/AdvReac Type Severity Reaction Status Date / Time No Known Allergies Allergy Verified 12/18/20 11:05 Surgical - Exam Osteopathic Statement: *. No significant issues noted on an osteopathic structural exam other than those noted in the History and Physical/Consult. Vital Signs Temp Pulse Resp BP Pulse Ox 98 F 60 18 142/74 96 12/18/20 08:41 12/18/20 08:41 12/18/20 08:41 12/18/20 08:41 12/18/20 08:41 - General well developed, well nourished, no distress - Eyes normal ocular movement - Neck trachea midline - Respiratory normal respiratory effort - Cardiovascular Rhythm: regular - Abdomen Abdomen: non tender, no guarding, no rigid, no rebound, distended (, Tense) Results - Labs 12/18/20 09:00 12/18/20 09:00 Abnormal Lab Results - Last 24 Hours (Table) 12/18/20 12/18/20 12/18/20 Range/Units 09:00 09:00 09:00 RBC 3.98 L (4.30-5.90) m/uL Hgb 10.7 L (13.0-17.5) gm/dL Hct 34.5 L (39.0-53.0) % RDW 16.2 H (11.5-15.5) % Lymphocytes # 0.6 L (1.0-4.8) k/uL PT 12.9 H (9.0-12.0) sec INR 1.2 H (<1.2) APTT 30.5 H (22.0-30.0) sec Sodium 135 L (137-145) mmol/L Diabetes panel 12/18/20 Range/Units 09:00 Sodium 135 L (137-145) mmol/L Potassium 4.4 (3.5-5.1) mmol/L Chloride 99 (98-107) mmol/L Carbon Dioxide 27 (22-30) mmol/L BUN 18 (9-20) mg/dL Creatinine 0.85 (0.66-1.25) mg/dL Glucose 84 (74-99) mg/dL Calcium 9.2 (8.4-10.2) mg/dL AST 33 (17-59) U/L ALT 14 (4-49) U/L Alkaline Phosphatase 119 (38-126) U/L Total Protein 7.6 (6.3-8.2) g/dL Albumin 3.7 (3.5-5.0) g/dL Calcium panel 12/18/20 Range/Units 09:00 Calcium 9.2 (8.4-10.2) mg/dL Albumin 3.7 (3.5-5.0) g/dL Pituitary panel 12/18/20 Range/Units 09:00 Sodium 135 L (137-145) mmol/L Potassium 4.4 (3.5-5.1) mmol/L Chloride 99 (98-107) mmol/L Carbon Dioxide 27 (22-30) mmol/L BUN 18 (9-20) mg/dL Creatinine 0.85 (0.66-1.25) mg/dL Glucose 84 (74-99) mg/dL Calcium 9.2 (8.4-10.2) mg/dL Adrenal panel 12/18/20 Range/Units 09:00 Sodium 135 L (137-145) mmol/L Potassium 4.4 (3.5-5.1) mmol/L Chloride 99 (98-107) mmol/L Carbon Dioxide 27 (22-30) mmol/L BUN 18 (9-20) mg/dL Creatinine 0.85 (0.66-1.25) mg/dL Glucose 84 (74-99) mg/dL Calcium 9.2 (8.4-10.2) mg/dL Total Bilirubin 1.0 (0.2-1.3) mg/dL AST 33 (17-59) U/L ALT 14 (4-49) U/L Alkaline Phosphatase 119 (38-126) U/L Total Protein 7.6 (6.3-8.2) g/dL Albumin 3.7 (3.5-5.0) g/dL - Imaging CT scan - abdomen: report reviewed, image reviewed Assessment and Plan (1) Anemia Current Visit: Yes Status: Acute Code(s): D64.9 - ANEMIA, UNSPECIFIED SNOMED Code(s): 865206754 (2) History of colon polyps Current Visit: Yes Status: Acute Code(s): Z86.010 - PERSONAL HISTORY OF COLONIC POLYPS SNOMED Code(s): 965305136 (3) Ascites Current Visit: Yes Status: Acute Code(s): R18.8 - OTHER ASCITES SNOMED Code(s): 612951919 Plan: The patient is to have a diagnostic/therapeutic paracentesis. Fluid to be sent for appropriate studies. GI has been consulted. Patient currently doesn't have an acute surgical abdomen. Recommend continued medical workup. Doubt any colonic pathology as the source of constipation since he had a colonoscopy 3 years ago. We'll be available for anything changes with the patient is cond ition or complaints
[2020-12-18] MEDS: SPIRONOLACTONE 25 MG TAB PO SCH (18:04)
[2020-12-18] MEDS ORDERED: FUROSEMIDE 20 MG TAB PO SCH (21:00)
[2020-12-18] MEDS: DOCUSATE 100 MG CAP PO SCH (21:20)
[2020-12-18] MEDS: CHOLECALCIFEROL 10 MCG (400 IU) TABLET PO SCH (21:20)
[2020-12-18] MEDS: ATORVASTATIN 10 MG TAB PO SCH (21:20)
[2020-12-18] MEDS: METOPROLOL TARTRATE 12.5 MG TAB PO SCH (21:21)
[2020-12-19 02:16] LABS: Alpha Fetoprotein, Tumor Mkr <2.5 ng/mL (0.0-7.9)
[2020-12-19 05:11] LABS: Hepatitis A Antibody IgM Non-Reactive (Non-Reactive); Hepatitis B Core IgM Non-Reactive (Non-Reactive); Hepatitis B Surface Antigen Non-Reactive (Non-Reactive); Hepatitis C IgG Antibody Non-Reactive (Non-Reactive)
[2020-12-19] MEDS ORDERED: POTASSIUM CHLORIDE ER 10 MEQ TAB.ER.PRT PO SCH (09:00)
[2020-12-19] MEDS ORDERED: NON FORMULARY DRUG (Lactose-Reduced Food [Ensure Plus] 237 ML Liquid) PO SCH (09:00)
[2020-12-19] MEDS ORDERED: NON FORMULARY DRUG (Vitamin B Complex [Vitamin B Complex] 1 EACH Capsule) PO SCH (09:00)
[2020-12-19] MEDS ORDERED: NON FORMULARY DRUG (Krill Oil [Krill Oil] 500 MG Capsule) PO SCH (09:00)
[2020-12-19] MEDS ORDERED: FUROSEMIDE 40 MG TAB PO SCH (09:00)
[2020-12-19] MEDS: PANTOPRAZOLE 40 MG TABLET PO SCH (10:02)
[2020-12-19] MEDS: METOPROLOL TARTRATE 12.5 MG TAB PO SCH ×2 (10:02→20:47)
[2020-12-19] MEDS: ZINC SULFATE 220 MG CAP PO SCH (10:02)
[2020-12-19] MEDS: CHOLECALCIFEROL 10 MCG (400 IU) TABLET PO SCH ×2 (10:02→20:47)
[2020-12-19] MEDS: MULTIVITAMINS, THERA 1 EACH TAB PO SCH (10:02)
[2020-12-19] MEDS: DOCUSATE 100 MG CAP PO SCH ×2 (10:03→20:47)
[2020-12-19] MEDS: SPIRONOLACTONE 25 MG TAB PO SCH ×3 (10:03→20:47)
[2020-12-19] MEDS: FUROSEMIDE 40 MG TAB PO SCH ×2 (11:20→16:31)
--- NOTE | 2020-12-19 11:21 | ECHOF ---
Referral Reason:lv fx MEASUREMENTS -------- HEIGHT: 170.2 cm WEIGHT: 81.6 kg BP: 138/76 RVIDd: 5.1 cm (< 3.3) IVSd: 1.5 cm (0.6 - 1.1) LVIDd: 5.1 cm (3.9 - 5.3) LVPWd: 1.5 cm (0.6 - 1.1) IVSs: 2.0 cm LVIDs: 4.1 cm LVPWs: 1.7 cm LA Diam: 5.6 cm (2.7 - 3.8) LAESV Index (A-L): 72.75 ml/m Ao Diam: 3.7 cm (2.0 - 3.7) MV EXCURSION: 17.961 mm (> 18.000) MV EF SLOPE: 105 mm/s (70 - 150) EPSS: 0.5 cm AV maxP.47 mmHg AV meanP.99 mmHg AR PHT: 594 ms RAP: 5.00 mmHg RVSP: 39.58 mmHg FINDINGS -------- Paced rhythm. This was a technically good study. The left ventricular size is normal. There is moderate concentric left ventricular hypertrophy. O verall left ventricular systolic function is mild-moderately impaired with, an EF between 40 - 45 %. The right ventricle is severely enlarged. LA is severely dilated >40 ml/m2 The right atrium is normal in size. Peak/mean gradient across the Aortic Valve is 17.47mmHg / 9.99mmHg. There is mild regurgitation of the bioprosthetic aortic valve. The mitral valve leaflets are mildly thickened. [id number] mitral regurgitation is present. Severe tricuspid regurgitation present. There is mild pulmonary hypertension. The right ventricul ar systolic pressure, as measured by Doppler, is 39.58mmHg. Trace/mild (physiologic) pulmonic regurgitation. The aortic root size is normal. IVC Not well visulized. There is no pericardial effusion. CONCLUSIONS -------- 1. The left ventricular size is normal. 2. There is moderate concentric left ventricular hypertrophy. 3. Overall left ventricular systolic function is mild-moderately impaired with, an EF between 40 - 45 %. 4. The right ventricle is severely enlarged. 5. LA is severely dilated >40 ml/m2 6. Peak/mean gradient across the Aortic Valve is 17.47mmHg / 9.99mmHg. 7. There is mild regurgitation of the bioprosthetic aortic valve. 8. The mitral valve leaflets are mildly thickened. 9. [id number] mitral regurgitation is present. 10. Severe tricuspid regurgitation present. 11. There is mild pulmonary hypertension. 12. The right ventricular systolic pressure, as measured by Doppler, is 39.58mmHg. 13. Trace/mild (physiologic) pulmonic regurgitation. 14. There is no pericardial effusion. LIME TRIMMER: Sofía Kirk RDCS
[2020-12-19 12:14] LABS: Basophils # (A) 0.04 X 10*3/uL (0.00-0.10); Basophils % (A) 0.8 %; Eosinophils # (A) 0.16 X 10*3/uL (0.04-0.35); Eosinophils % (A) 3.2 %; HCT 30.4 % (39.6-50.0); HGB 9.6 g/dL (13.0-17.0); Lymphocytes % (A) 10.1 %; MCH 27.5 pg (27.0-32.0); MCHC 31.6 g/dL (32.0-37.0); MCV 87.1 fL (80.0-97.0); Mean Platelet Volume 10.6 fL (9.5-12.2); Monocytes # (A) 0.58 X 10*3/uL (0.20-1.00); Monocytes % (A) 11.7 %; Neutrophils # (A) 3.66 X 10*3/uL (1.80-7.70); Neutrophils % (A) 73.8 %; Platelet Count 231 X 10*3/uL (140-440); RBC 3.49 X 10*6/uL (4.40-5.60); RDW 16.7 % (11.5-14.5); WBC 4.96 X 10*3/uL (4.50-10.00)
[2020-12-19 12:33] LABS: African American GFR (CKD) 92.5 (60.0-200.0); Anion Gap 6.4 mmol/L (4.00-12.00); BUN/Creat Ratio 18.89 Ratio (12.00-20.00); Calcium 8.7 mg/dL (8.7-10.3); Carbon Dioxide 26.6 mmol/L (21.6-31.8); Non-African American GFR(CKD) 79.8 (60.0-200.0); Potassium 4.3 mmol/L (3.5-5.5)
--- NOTE | 2020-12-19 13:17 | CONS ---
CONSULTATION DATE OF DICTATION: December 19, 2020. REASON FOR CONSULTATION: New onset ascites. PRESENT ILLNESS: The patient is an 80-year-old pleasant male with history of atrial fibrillation on Eliquis, history of aortic valve replacement in the past, admitted to the hospital with gradual abdominal distention for the last 3 months duration. He gained about 20 pounds during this time. He was also having lower extremity swelling. He came to the emergency room because of worsening abdominal distention and he had a CT of the abdomen and pelvis done that showed significant ascites and nodular appearing liver consistent with liver cirrhosis. The patient has history of heavy alcohol abuse in the past. He quit drinking 21 months ago. He denies any prior history of jaundice or hepatitis. He reports no history of chronic liver disease that he is aware of. In the ER, he had labs done. CBC and CMP are within normal limits. PAST MEDICAL HISTORY: Significant for atrial fibrillation, on Eliquis, history of congestive heart failure, gastroesophageal reflux disease, hypertension, hyperlipidemia, heavy alcohol abuse, quit drinking 21 months ago. PAST SURGICAL HISTORY: Aortic valve replacement, back surgery, bilateral cataract removal, right total knee arthroplasty. MEDICATIONS: Medications at home include: Iron, [place], metoprolol, Zocor, Colace, lansoprazole, Eliquis, Lasix, multivitamins, vitamin B, vitamin D3 and zinc. ALLERGIES: None. SOCIAL HISTORY: Heavy alcohol use of 60 years duration, quit drinking 21 months ago. No smoking. FAMILY HISTORY: Father had some kind of cancer. REVIEW OF SYSTEMS: CARDIOPULMONARY: No chest pain or shortness of breath. : No dysuria, no hematuria. MUSCULOSKELETAL: Unremarkable. SKIN unremarkable. ENDOCRINE unremarkable. PSYCHIATRIC unremarkable. NEUROLOGY: Unremarkable. ENT/VISION: Unremarkable. CONSTITUTIONAL: Weight gain of 20 pounds. No fever, chills or night sweats. HEMATOLOGY unremarkable. GI as mentioned above. PHYSICAL EXAMINATION: He appears comfortable. No apparent distress. Vital signs stable. Blood pressure 138/76, pulse is 69, temperature 97.4. HEENT examination unremarkable. Conjunctivae pink. Sclerae anicteric. Oral cavity no lesions. NECK: No JVD. CHEST: Clear to auscultation. HEART: Regular rate and rhythm. ABDOMEN: Soft, it was distended. There was significant amount of ascites noted. EXTREMITIES: 1+ pedal edema. SKIN: No rashes. NEUROLOGIC: Alert and oriented x3. No focal deficits. LABS: Labs done at the time of admission to the hospital: WBC 5.1, hemoglobin 10.7, platelets normal. Basic metabolic panel is within normal limits. Sodium 135, BUN and creatinine are normal. PT 12.9, INR 1.2. AST/ALT and T-bilirubin and alkaline phosphatase are within normal limits. Hepatitis serologies for A, B and C negative. IMPRESSION: 1. New onset ascites in this patient with history of heavy alcohol abuse in the past, which he quit drinking about [address] scan showed moderate to large amount of ascites and nodular appearing liver consistent with liver cirrhosis. Hepatitis serologies for A, B and C are negative. Liver enzymes are within normal limits. Most likely we are dealing with ascites related to portal hypertension. 2. History of atrial fibrillation on Eliquis which is currently on hold. 3. History of aortic valve replacement. 4. Heavy alcohol abuse in the past, which he quit drinking 21 months ago. RECOMMENDATIONS: 1. Continue with Lasix 40 mg twice daily. 2. We will increase Aldactone to 50 mg twice daily. 3. Low-salt diet. 4. Patient already scheduled for large-volume paracentesis for diagnostic and therapeutic purposes on Monday. 5. Encourage low salt diet. 6. We will follow with you closely. Thank you for this consultation. MMODL / IJN: [id number] /
--- NOTE | 2020-12-19 14:10 | P.PN ---
Subjective Progress Note Date: 12/19/20 Principal diagnosis: probable cirrhosis of the liver secondary to long-term excessive alcohol consumption is a patient well-known to my practice, with a known long-standing history of alcohol consumption, patient states that he quit drinking approximately 21 months ago. Patient began developing a enlarged liver ascites, and initially was having episodic constipation. Underwent aortic valve replacement approximately 4 years ago, at [facility]. Mild chronic anemia Objective - Vital Signs Vital signs: Vital Signs Temp 97.4 F L 12/19/20 05:25 Pulse 69 12/19/20 05:25 Resp 18 12/19/20 05:25 BP 138/76 12/19/20 05:25 Pulse Ox 96 12/19/20 05:25 Intake & Output 12/18/20 12/19/20 12/19/20 18:59 06:59 18:59 Intake Total 540 200 Balance 540 200 Weight 81.647 kg Intake: Intake, IV Titration 200 Amount Sodium Chloride 0.9% 1, 200 000 ml @ 20 mls/hr IV . Q24H STA Rx#:[id number] Oral 540 Other: Voiding Method Toilet Toilet Toilet - Labs CBC & Chem 7: 12/19/20 07:06 12/19/20 07:06 Labs: Abnormal Lab Results - Last 24 Hours (Table) 12/19/20 Range/Units 07:06 RBC 3.49 L (4.40-5.60) X 10*6/uL Hgb 9.6 L (13.0-17.0) g/dL Hct 30.4 L (39.6-50.0) % MCHC 31.6 L (32.0-37.0) g/dL RDW 16.7 H (11.5-14.5) % Lymphocytes # 0.50 L (0.90-5.00) X 10*3/uL Assessment and Plan (1) Chronic alcoholic liver disease Current Visit: Yes Status: Acute Code(s): K70.9 - ALCOHOLIC LIVER DISEASE, UNSPECIFIED SNOMED Code(s): 281961462 (2) Abdominal pain Current Visit: Yes Status: Acute Code(s): R10.9 - UNSPECIFIED ABDOMINAL PAIN SNOMED Code(s): 88870911 (3) Anemia Current Visit: Yes Status: Acute Code(s): D64.9 - ANEMIA, UNSPECIFIED SNOMED Code(s): 586443071 (4) Ascites Current Visit: Yes Status: Acute Code(s): R18.8 - OTHER ASCITES SNOMED Code(s): 463390596 (5) Failure to thrive Current Visit: Yes Status: Acute Code(s): VBR6018 - SNOMED Code(s): 27295279 (6) History of colon polyps Current Visit: Yes Status: Acute Code(s): Z86.010 - PERSONAL HISTORY OF COL ONIC POLYPS SNOMED Code(s): 277902738 (7) Atrial fibrillation Current Visit: No Status: Acute Code(s): I48.91 - UNSPECIFIED ATRIAL FIBRILLATION SNOMED Code(s): 73119057 Plan: consultation with gastroenterology Gen. surgery Fluid resuscitation as needed Probable paracentesis for therapeutic as well as diagnostic Time with Patient: Greater than 30
[2020-12-19] MEDS: ATORVASTATIN 10 MG TAB PO SCH (20:47)
[2020-12-20] MEDS: CHOLECALCIFEROL 10 MCG (400 IU) TABLET PO SCH ×2 (08:42→20:45)
[2020-12-20] MEDS: ZINC SULFATE 220 MG CAP PO SCH (08:42)
[2020-12-20] MEDS: MULTIVITAMINS, THERA 1 EACH TAB PO SCH (08:42)
[2020-12-20] MEDS: METOPROLOL TARTRATE 12.5 MG TAB PO SCH ×2 (08:42→20:44)
[2020-12-20] MEDS: DOCUSATE 100 MG CAP PO SCH ×2 (08:42→20:44)
[2020-12-20] MEDS: FUROSEMIDE 40 MG TAB PO SCH ×2 (08:42→16:04)
[2020-12-20] MEDS: SPIRONOLACTONE 25 MG TAB PO SCH ×2 (08:46→20:44)
[2020-12-20] MEDS: PANTOPRAZOLE 40 MG TABLET PO SCH (11:20)
--- NOTE | 2020-12-20 12:12 | PN ---
PROGRESS NOTE DATE OF SERVICE: 12/20/2020 The patient is an 80-year-old white male admitted to the hospital with new onset ascites. History of heavy alcohol abuse for several years, quit 21 months ago. He complains of abdominal distention, abdominal discomfort. No nausea or vomiting. On diuretics currently. Scheduled for large-volume paracentesis tomorrow. PHYSICAL EXAMINATION: Appears comfortable. VITAL SIGNS: Stable. Blood pressure 120/69, pulse is 60, temperature 97.1. HEENT examination unremarkable. Conjunctivae pink. Sclerae anicteric. Oral cavity no lesions. NECK: No JVD or lymph node enlargement. CHEST was clear to auscultation. HEART: Regular rate and rhythm. ABDOMEN: Soft. It was distended, ascites noted. EXTREMITIES: No pedal edema. SKIN: No rashes. NEUROLOGIC: Alert and oriented x3. No focal deficits. LABS: WBC 4.9, hemoglobin 9.6, platelets 231. The rest of the labs are within normal limits. CMP is normal. IMPRESSION: 1. New onset ascites, possibly related to underlying liver cirrhosis from alcoholic liver disease. LFTs are within normal limits. Presently on Lasix 40 b.i.d. and Aldactone 50 b.i.d. Hepatitis serologies for A, B and C negative. 2. History of heavy alcohol abuse for many years. Quit drinking 21 months ago. RECOMMENDATIONS: 1. Proceed with large volume paracentesis for diagnostic and therapeutic purposes. 2. Continue with Lasix 40 b.i.d. and Aldactone 50 b.i.d. 3. Low-salt diet. 4. We will follow with you closely. Thank you for this consultation. MMODL / IJN: [id number] /
--- NOTE | 2020-12-20 13:17 | P.PN ---
Subjective Progress Note Date: 12/20/20 Principal diagnosis: probable cirrhosis of the liver secondary to long-term excessive alcohol consumption is a patient well-known to my practice, with a known long-standing history of alcohol consumption, patient states that he quit drinking approximately 21 months ago. Patient began developing a enlarged liver ascites, and initially was having episodic constipation. Underwent aortic valve replacement approximately 4 years ago, at [facility]. Mild chronic anemia Objective - Vital Signs Vital signs: Vital Signs Temp 97.7 F 12/20/20 12:41 Pulse 60 12/20/20 12:41 Resp 18 12/20/20 12:41 BP 133/74 12/20/20 12:41 Pulse Ox 97 12/20/20 12:41 Intake & Output 12/19/20 12/20/20 12/20/20 18:59 06:59 18:59 Intake Total 220 Balance 220 Intake: Intake, IV Titration 220 Amount Sodium Chloride 0.9% 1, 220 000 ml @ 20 mls/hr IV . Q24H STA Rx#:[id number] Other: Voiding Method Toilet Toilet - Exam General: [Patient awake, alert and oriented times 3. Patient in no acute distress.] HEENT: [PERRL. EOMI. No pharyngeal erythema or exudate.] Neck: [No adenopathy.] Cardiac: [Heart regular in rate and rhythm. No S3. No S4. No clicks, rubs. No murmur.] Lungs: [Clear to auscultation bilaterally.] Abdomen: [No mass. No organomegaly. Bowel sounds presnt and normoactive in all 4 quadrants.] significant liver enlargement with ascites Extremes: 3+ edema bilateral lower extremes no cyanosis no claudication normal pulses] : normal male genitalia Musculoskeletal: [No joint erythema, edema or tenderness.] Skin: [No rash.] Neurologic: [No lateralizing deficits. CN II - XII grossly intact.] Lymphatic: [No adenopathy.] - Labs CBC & Chem 7: 12/19/20 07:06 12/19/20 07:06 Assessment and Plan (1) Chronic alcoholic liver disease Current Visit: Yes Status: Acute Code(s): K70.9 - ALCOHOLIC LIVER DISEASE, UNSPECIFIED SNOMED Code(s): 968026664 (2) Abdominal pain Current Visit: Yes Status: Acute Code(s): R10.9 - UNSPECIFIED ABDOMINAL PAIN SNOMED Code(s): 50321627 (3) Anemia Current Visit: Yes Status: Acute Code(s): D64.9 - ANEMIA, UNSPECIFIED SNOMED Code(s): 600077249 (4) Ascites Current Visit: Yes Status: Acute Code(s): R18.8 - OTHER ASCITES SNOMED Code(s): 490298818 (5) Failure to thrive Current Visit: Yes Status: Acute Code(s): YGM7086 - SNOMED Code(s): 90285871 (6) History of colon polyps Current Visit: Yes Status: Acute Code(s): Z86.010 - PERSONAL HISTORY OF COLONIC POLYPS SNOMED Code(s): 386077390 (7) Atrial fibrillation Current Visit: No Status: Acute Code(s): I48.91 - UNSPECIFIED ATRIAL FIBRILLATION SNOMED Code(s): 89686972 Plan: consultation with gastroenterology diuresis with potassium sparing diuretics prolactinoma As well as judicious Lasix Probable paracentesis for therapeutic as well as diagnostic Time with Patient: Greater than 30
[2020-12-20] MEDS: ATORVASTATIN 10 MG TAB PO SCH (20:44)
[2020-12-21] MEDS: FUROSEMIDE 40 MG TAB PO SCH ×2 (10:17→17:08)
[2020-12-21] MEDS: METOPROLOL TARTRATE 12.5 MG TAB PO SCH (10:17)
[2020-12-21] MEDS: DOCUSATE 100 MG CAP PO SCH (10:17)
[2020-12-21] MEDS: PANTOPRAZOLE 40 MG TABLET PO SCH (10:17)
[2020-12-21] MEDS: SPIRONOLACTONE 25 MG TAB PO SCH (10:17)
[2020-12-21] MEDS: ZINC SULFATE 220 MG CAP PO SCH (10:17)
[2020-12-21] MEDS: MULTIVITAMINS, THERA 1 EACH TAB PO SCH (10:17)
[2020-12-21] MEDS: CHOLECALCIFEROL 10 MCG (400 IU) TABLET PO SCH (10:17)
[2020-12-21 12:32] VITALS: TEMP 98.1
[2020-12-21] MEDS: FERROUS SULFATE 325 MG TAB PO SCH (13:01)
--- NOTE | 2020-12-21 15:11 | P.DS ---
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 Quit drinking 21 months ago. Recent constipation in a patient on [place] and iron daily, placed on Senokot, reports resolved Chronic atrial fibrillation, anticoagulated on Eliquis, last taken last night Renal cysts Diverticulosis without acute diverticulitis chronic CHF, diastolic dysfunction, possible mild component of acute, echo ordered Hypertension Hyperlipidemia Bovine aortic valve replacement at [facility] Ascending aortic aneurysm, history of Iron deficient anemia Pulmonary hypertension BPH Hospital course:This is an 80-year-old gentleman with past medical history of chronic atrial fibrillation, heart failure, GERD, hyperlipidemia, hypertension, aortic valve replacement with bovine at [facility] in July 2016, 3 back fusions of L4-5, history of nicotine dependence and history of significant alcohol use. Reports he has had no wine in 21 days. Patient is a ,has traveled extensively throughout [place], [place], [place], [place], [place] and etc. Stationed in [facility] in the [facility]. He presented to the ER with abdominal pain, distended abdomen, edema. A few days back patient had seen his PCP, Dr. Hunter regarding constipation, mild anemia and was placed on FeSO4 and Senokot. Patient states the medication worked, positive bowel movements. Denies nausea vomiting or diarrhea. Denies chest pain, palpitations. CT of abdomen and pelvis reported minimal compressive atelectasis, ascites present throughout the abdomen, mild limitation may be along the anterior right and left lobe liver, consider developing cirrhosis, multiple renal cysts including 6.6 cm superior medial right renal cyst, scattered diverticuli and sigmoid colon, some fecal debris. Afebrile, normal WBC, hemoglobin 10.7, MCV 86.9, platelets 208, INR 1.2, sodium 135, potassium 4.4, BUN 18, creatinine 0.85, lactic acid 0.9. T bili and LFTs within normal limits, UA negative, coronavirus not detected. Vital signs stable, maintaining O2 sats in the high 90s on room air. Evaluated by GI, Aldactone initiated, Lasix increased maintained on low sodium diet and scheduled for paracentesis. Patient will be discharged home later today pending paracentesis, final DC recommendations and clearance from GI, in a stable condition with guarded prognosis. The impression and plan of care has been dictated as directed. : I performed a history and examination of this patient, discussed the same with the dictator. I agree with the dictator's note ,documented as a scribe. Any additional findings or plans will be noted. Patient Condition at Discharge: Stable Plan - Discharge Summary New Discharge Prescriptions: New Spironolactone [Aldactone] 50 mg PO BID #60 tab Furosemide [Lasix] 40 mg PO BID@0900,1600 #60 tab Continue Hydrocodone/Acetaminophen [[place] 10-325] 1 tab PO Q6H PRN PRN Reason: Pain Simvastatin [Zocor] 20 mg PO HS Metoprolol Tartrate 12.5 mg PO BID Ferrous Sulfate [Iron (65 MG Elemental)] 325 mg PO MOWEFR Krill Oil 500 mg PO DAILY Docusate [Colace] 100 mg PO BID #60 cap Lansoprazole 30 mg PO DAILY Zinc(Unknown) 1 tab PO DAILY Vitamin D3(Unknown Dose) 1 tab PO BID Vitamin B Complex 1 cap PO DAILY Lactose-Reduced Food [Ensure Plus] 237 ml PO DAILY Potassium Chloride ER [K-Dur 10] 10 meq PO DAILY [place] 320 - 640 mg PO DAILY Apixaban [Eliquis] 5 mg PO BID Multivit-Min/FA/Lycopen/Lutein [Centrum Silver Tablet] 1 tab PO DAILY Discontinued Furosemide [Lasix] 20 mg PO HS Furosemide [Lasix] 40 mg PO DAILY Discharge Medication List Ferrous Sulfate [Iron (65 MG Elemental)] 325 mg PO MOWEFR 01/25/17 [History] Hydrocodone/Acetaminophen [[place] 10-325] 1 tab PO Q6H PRN 01/25/17 [History] Krill Oil 500 mg PO DAILY 01/25/17 [History] Metoprolol Tartrate 12.5 mg PO BID 01/25/17 [History] Simvastatin [Zocor] 20 mg PO HS 01/25/17 [History] Docusate [Colace] 100 mg PO BID #60 cap 02/01/17 [Rx] Lansoprazole 30 mg PO DAILY 05/23/17 [History] Apixaban [Eliquis] 5 mg PO BID 12/18/20 [History] Lactose-Reduced Food [Ensure Plus] 237 ml PO DAILY 12/18/20 [History] Multivit-Min/FA/Lycopen/Lutein [Centrum Silver Tablet] 1 tab PO DAILY 12/18/20 [History] Potassium Chloride ER [K-Dur 10] 10 meq PO DAILY 12/18/20 [History] [place] 320 - 640 mg PO DAILY 12/18/20 [History] Vitamin B Complex 1 cap PO DAILY 12/18/20 [History] Vitamin D3(Unknown Dose) 1 tab PO BID 12/18/20 [History] Zinc(Unknown) 1 tab PO DAILY 12/18/20 [History] Furosemide [Lasix] 40 mg PO BID@0900,1600 #60 tab 12/21/20 [Rx] Spironolactone [Aldactone] 50 mg PO BID #60 tab 12/21/20 [Rx] Follow up Appointment(s)/Referral(s): Last Orona Jr, [Primary Care Provider] - 3 Days Anya Neal MD [STAFF PHYSICIAN] - 2 Weeks Activity/Diet/Wound Care/Special Instructions: Confirm when patient can resume his Eliquis. Pending paracentesis, final DC recommendations and clearance from GI
--- NOTE | 2020-12-21 16:01 | P.PN ---
Subjective Progress Note Date: 12/21/20 Principal diagnosis: New onset ascites Very pleasant 80-year-old male who was admitted to the hospital with new onset of ascites. History of heavy alcohol abuse for several years, however states he quit 21 months ago. Patient denies any nausea or vomiting, still states he has some discomfort due to abdominal distention. He is scheduled for large volume paracentesis today. Objective - Vital Signs Vital signs: Vital Signs Temp 98.2 F 12/21/20 05:00 Pulse 60 12/21/20 05:00 Resp 18 12/21/20 05:00 BP 114/52 12/21/20 05:00 Pulse Ox 96 12/21/20 05:00 Intake & Output 12/20/20 12/21/20 12/21/20 18:59 06:59 18:59 Output Total 800 Balance -800 Output: Urine 800 Other: Voiding Method Toilet # Voids 3 - Exam General appearance: The patient is alert, oriented, appears in no acute distress. HET: Head is normocephalic and atraumatic. Conjunctiva pink. Sclera anicteric. Neck: Supple without lymphadenopathy. Abdomen: Firm, nontender, distended with bowel sounds. No guarding or rigidity. Extremities: Normal skin color and turgor. Bilateral pedal edema. Skin: No rashes, no jaundice Neurological: No focal deficits. Alert and oriented 3. - Labs CBC & Chem 7: 12/19/20 07:06 12/19/20 07:06 Assessment and Plan Assessment: 1. New onset ascites, possibly related to underlying liver cirrhosis from alcoholic liver disease. LFTs are within normal limits. Presently on Lasix 40 mg twice a day and Aldactone 50 mg twice a day. Hepatitis serologies for A, B, and C are negative 2. Heavy alcohol abuse for many years. Quit drinking 21 months. Plan: 1. Proceed with paracentesis as ordered with fluid studies 2. Annual with Lasix 40 mg twice a day and Aldactone 50 mg twice a day 3. Low-sodium diet 4. Patient may be discharged home from a gastroenterology standpoint once medically cleared 5. Patient will need close outpatient follow-up with gastroenterology Thank you for this consultation. Dr. Perry Neal I agree with the dictator's note, documented as a scribe by Faviola Knowles.
[2020-12-21 16:36] VITALS: BP 128/72; PULSE 60; RESP 16
[2020-12-21 17:59] LABS: Appearance,BF Hazy; Nucleated Cells, Body Fluid 150 /uL; RBC, Body Fluid 4200 /uL
[2020-12-21 18:10] LABS: Mononuclear WBC,Body Fluid 82 %; Polynuclear WBC,Body Fluid 18 %; Total Cells Counted,Body Fluid 100
[2020-12-22 03:54] LABS: Total Protein, Body Fluid 3520 mg/dL
[2020-12-22 04:29] LABS: Albumin, Fluid Source Paracentesis Fluid
--- NOTE | 2020-12-22 10:07 | US ---
Ultrasound-guided paracentesis. DATE OF EXAM: 12/21/2020 CLINICAL HISTORY: Ascites The procedure was discussed with the patient. The risks, complications, benefits, and alternatives we re discussed and any questions were answered. Informed consent was obtained. The patient was placed s upine on the ultrasound table and prepped and draped in the usual sterile fashion. All elements of maximal barrier technique were utilized. Under ultrasound guidance, access into the right lower quadrant was obtained, via the paracentesis catheter system and direct ultrasound guidanc e. Approximately 8.5 liters of straw-colored fluid was removed. The patient was stable throughout the pr ocedure and remained stable upon discharge from Department of Radiology. Sample obtained and sent to pathology for analysis. IMPRESSION: Successful paracentesis under ultrasound guidance.
== END 2020-12-21 18:46 | disposition home or self-care (01) | DRG 432 ==
LOC: EC 08:39 → 5NMEDONC 12:50
PROVIDERS: ADMIT Family Medicine; ATTEND Family Medicine
PROC: 0W9G3ZZ Drainage of Peritoneal Cavity, Percutaneous Approach (ICD-10-PCS; principal; 2020-12-21)
DX: K70.31 Alcoholic cirrhosis of liver with ascites (principal); I50.33 Acute on chronic diastolic (congestive) heart failure; I48.20 Chronic atrial fibrillation, unspecified; K76.6 Portal hypertension; D50.9 Iron deficiency anemia, unspecified; E78.5 Hyperlipidemia, unspecified; H91.90 Unspecified hearing loss, unspecified ear; I11.0 Hypertensive heart disease with heart failure; I27.20 Pulmonary hypertension, unspecified; I71.2 Thoracic aortic aneurysm, without rupture; K59.00 Constipation, unspecified; K57.90 Diverticulosis of intestine, part unspecified, without perforation or abscess without bleeding; Z20.822 Contact with and (suspected) exposure to COVID-19; K63.5 Polyp of colon; Z96.651 Presence of right artificial knee joint; Z96.1 Presence of intraocular lens; N28.1 Cyst of kidney, acquired; N40.0 Benign prostatic hyperplasia without lower urinary tract symptoms; R62.7 Adult failure to thrive; Z79.01 Long term (current) use of anticoagulants; Z95.3 Presence of xenogenic heart valve; Z87.891 Personal history of nicotine dependence; Z87.442 Personal history of urinary calculi; Z87.19 Personal history of other diseases of the digestive system; Z79.899 Other long term (current) drug therapy
CPT/HCPCS: 36415; 49083; 74177; 80048; 80053; 80074; 81003; 82042; 82105; 82150; 82550; 83605; 83690; 84157; 85025; 85610; 85730; 87070; 87075; 87205; 87635; 88108; 88305; 89050; 93306; 96360; 96361; 99285

== ENCOUNTER 2021-03-24 11:16 | Day surgery (SDC) | payer MEDICARE, BC ==
[~2021-03-24 11:16] MED LIST changes: -LIDOCAINE 1% 20 ML VIAL (10MG/ML) FOR IV START INTRADERMA PRN
[2021-03-24] MEDS ORDERED: LIDOCAINE 1% (10MG/ML) FOR IV START INTRADERMA ONE (12:10)
[2021-03-24 12:13] VITALS: TEMP 98.2
[2021-03-24] MEDS ORDERED: PROPOFOL 10 MG/ML 20 ML VIAL IV ONE (12:30)
--- NOTE | 2021-03-24 12:40 | P.PCN ---
Date of Procedure: 03/24/21 Procedure(s) Performed: BRIEF HISTORY: Patient is a 81-year-old, pleasant, white male scheduled for an upper endoscopy as part of screening for esophageal varices. He was diagnosed with alcohol cirrhosis of the liver 2 years ago . PROCEDURE PERFORMED: Esophagogastroduodenoscopy. PREOPERATIVE DIAGNOSIS: Cirrhosis of the liver/screening for esophageal varices. IV sedation per anesthesia. PROCEDURE: After informed consent was obtained, the patient was brought into the endoscopy unit. IV sedation was administered by Anesthesia under continuous monitoring. Initially the Olympus GIF-140 video endoscope was inserted into the mouth. Esophagus intubated without any difficulty. It was gradually advanced into the stomach and duodenum and carefully examined. The bulb and the second part of the duodenum appeared normal. The scope at this time was withdrawn to the stomach, adequately insufflated with air, and upon careful examination, mucosa of the antrum had mild gastritis and biopsies were done from this area. The, body, cardia and the fundus appeared normal. The scope was then withdrawn into the esophagus. Small sliding type hiatal hernia noted. The GE junction was located at 39 cm from the incisors. The esophagus appeared normal. There were no esophageal varices seen. There were no erosions or ulcerations seen and the patient tolerated the procedure well. IMPRESSION: 1. No evidence of gastric or esophageal varices. 2. Mild antral gastritis and small hiatal hernia. RECOMMENDATIONS: The findings of this examination were discussed with the patient as well as his family.. He was advised to follow with the biopsy results. He can have a repeat upper endoscopy in 2-3 years for screening for esophageal varices.
[2021-03-24 12:49] VITALS: PULSE 60; RESP 16
[2021-03-24 13:02] VITALS: BP 118/64
== END 2021-03-24 14:03 ==
LOC: ORWHC2ENDO 11:16
PROVIDERS: ATTEND Internal Medicine Gastroenterology
DX: K29.50 Unspecified chronic gastritis without bleeding (principal); K44.9 Diaphragmatic hernia without obstruction or gangrene; K74.60 Unspecified cirrhosis of liver; E78.5 Hyperlipidemia, unspecified; I10 Essential (primary) hypertension; Z86.73 Personal history of transient ischemic attack (TIA), and cerebral infarction without residual deficits; Z87.442 Personal history of urinary calculi; Z79.899 Other long term (current) drug therapy; Z79.01 Long term (current) use of anticoagulants
CPT/HCPCS: 88305; 88342; 43239; J2704

== ENCOUNTER → 2021-03-29 | Outpatient (CLI) | payer MEDICARE ==
--- NOTE | 2021-03-30 08:19 | CT ---
EXAMINATION TYPE: CT lumbar spine wo con DATE OF EXAM: 03/29/2021 COMPARISON: 01/25/2017 HISTORY: Low back pain, pt c/o pain down RT leg CT DLP: 771.[address] of the lumbar spine was performed. Bone and soft tissue window settings are submitted as well as coronal and sagittal reconstructions. L1-L2: There is evidence of vacuum disc. Degenerative endplate sclerosis and cystic change identified . Posterior disc bulge. No evidence for herniation or central stenosis. Ventral spondylosis with bila teral foraminal encroachment. L2-L3: There is evidence of a fusion. Posterior ridging noted. There is a laminectomy change. Constri ction of the thecal sac noted. Recurrent stenosis difficult to exclude. L3-L4: Severe degenerative disc disease with vacuum disc. Decompressive laminectomy noted. There is p osterior bony ridging seen with constriction of the thecal sac. Recurrent central stenosis difficult to exclude. L4-L5: Postoperative changes of anterior decompressive laminectomy. Pedicular screws in place. No estephania dence for recurrent or residual disease. Streak artifact limits evaluation. L5-S1: Vacuum disc noted. Posterior disc bulge. Decompressive laminectomy changes at L5. No evidence for recurrent or residual disease. No paraspinal masses are identified. Lumbar segments are free if fracture. IMPRESSION: 1. Extensive postoperative changes. Recurrent stenosis difficult to exclude at L2-3 and L3-4. 2. Severe multilevel degenerative disc disease and spondylosis.
== END | disposition home or self-care (01) ==
LOC: RADCTMAIN 16:47
PROVIDERS: ATTEND Family Medicine
DX: M48.061 Spinal stenosis, lumbar region without neurogenic claudication (principal); M51.36 Other intervertebral disc degeneration, lumbar region; M47.816 Spondylosis without myelopathy or radiculopathy, lumbar region
CPT/HCPCS: 72131

== ENCOUNTER → 2022-05-02 | Outpatient (CLI) | payer MEDICARE ==
--- NOTE | 2022-05-02 15:28 | CT ---
EXAMINATION TYPE: CT brain wo con DATE OF EXAM: 05/02/2022 COMPARISON: None available HISTORY: Unsteady gait. CT DLP: 1165 mGycm Automated exposure control for dose reduction was used. TECHNIQUE: CT scan of the brain is performed without IV contrast administration. FINDINGS: Brain volume loss changes, likely age-related. Left pontine hypodensities, possibly artifactual versu s chronic microvascular ischemic changes. Scattered arterial atherosclerotic calcifications. No acute intracranial hemorrhage. No gross acute cortical infarct. No midline shift, herniation or ve ntriculomegaly. Unremarkable rosales-white matter differentiation, basal cisterns, sella and CP angles. No gross space-o ccupying lesion, vasogenic edema or mass effect. Unremarkable orbits. Mucosal thickening of the left maxillary sinus. Clear mastoid air cells. No aggr essive bone lesion. IMPRESSION: No acute intracranial abnormality or gross space-occupying lesion by this nonenhanced CT scan. Chroni c and incidental findings as described above.
== END ==
LOC: RADCTMAIN 14:34
PROVIDERS: ATTEND Family Medicine
DX: R26.81 Unsteadiness on feet (principal); I25.10 Atherosclerotic heart disease of native coronary artery without angina pectoris; J34.89 Other specified disorders of nose and nasal sinuses
CPT/HCPCS: 70450

== ENCOUNTER 2023-04-28 18:28 | Emergency (ER) | payer MEDICARE ==
[2023-04-28 19:23] VITALS: TEMP 98.4
--- NOTE | 2023-04-28 20:00 | ED ---
Recheck HPI - General Chief Complaint: Recheck/Abnormal Lab/Rx Stated Complaint: leaking post-paracentesis Time Seen by Provider: 04/28/23 19:33 Source: patient Mode of arrival: wheelchair Limitations: no limitations - History of Present Illness Initial Comments: 83-year-old male presenting with chief complaint of fluid leaking from his paracentesis site. Patient had a paracentesis performed yesterday at [facility]. States that today his sugar again. After soaking with fluid and he found a small leak from the site. No fevers or chills. No nausea or vomiting. No increasing abdominal pain. No purulent discharge. - Related Data Home Medications Medication Instructions Recorded Confirmed Ferrous Sulfate [Iron (65 MG 325 mg PO MOWEFR 01/25/17 03/24/21 Elemental)] Hydrocodone/Acetaminophen [[place] 1 tab PO Q6H PRN 01/25/17 03/24/21 10-325] Krill Oil 500 mg PO DAILY 01/25/17 03/24/21 Metoprolol Tartrate 12.5 mg PO BID 01/25/17 03/24/21 Simvastatin [Zocor] 20 mg PO HS 01/25/17 03/24/21 Lansoprazole 30 mg PO DAILY 05/23/17 03/24/21 Apixaban [Eliquis] 5 mg PO BID 12/18/20 03/24/21 Lactose-Reduced Food [Ensure Plus] 237 ml PO DAILY 12/18/20 03/24/21 Multivit-Min/FA/Lycopen/Lutein 1 tab PO DAILY 12/18/20 03/24/21 [Centrum Silver Tablet] Potassium Chloride ER [K-Dur 10] 10 meq PO MOWEFR 12/18/20 03/24/21 Saw [place] 1 tab PO DAILY 12/18/20 03/24/21 Zinc(Unknown) 1 tab PO DAILY 12/18/20 03/24/21 Cholecalciferol (Vitamin D3) 125 mcg PO DAILY 03/22/21 03/24/21 [Vitamin D3 (5000 Iu)] Cyanocobalamin (Vitamin B-12) 1 tab PO DAILY 03/22/21 03/24/21 [Vitamin B-12] Furosemide [Lasix] 40 mg PO QAM PRN 03/22/21 03/24/21 Spironolactone [Aldactone] 25 mg PO BID 03/22/21 03/24/21 Previous Rx's Medication Instructions Recorded Docusate [Colace] 100 mg PO BID #60 cap 02/01/17 Allergies Allergy/AdvReac Type Severity Reaction Status Date / Time No Known Allergies Allergy Verified 04/28/23 19:23 Review of Systems ROS Statement: Those systems with pertinent positive or pertinent negative responses have been documented in the HPI. ROS Other: All systems not noted in ROS Statement are negative. Past Medical History Past Medical History: Atrial Fibrillation, Heart Failure, GERD/Reflux, Hearing Disorder / Deafness, Hyperlipidemia, Hypertension Additional Past Medical History / Comment(s): COVID VACCINE (MODERNA). Hx of gout, kidney stones. History of Any Multi-Drug Resistant Organisms: None Reported Past Surgical History: Back Surgery, Cardiac Valve Replacement, Joint Replacement, Pacemaker Additional Past Surgical History / Comment(s): SEPTIC TOOK IV ANTIBIOTICS POST VALVE SURGERY. Hx of cystoscopy for kidney stones, Bilateral cataract removal and intraocular lens implants, 3 back fusions of L4-5, aortic valve replacement with bovine at [facility] July 2016, right & LEFT total knee arthroplasty Past Anesthesia/Blood Transfusion Reactions: No Reported Reaction, Motion Sickness Past Psychological History: No Psychological Hx Reported Smoking Status: Former smoker Past Alcohol Use History: None Reported Past Drug Use History: None Reported - Past Family History Father Family Medical History: Cancer Mother Family Medical History: No Reported History Son(s) Family Medical History: Cancer Additional Family Medical History / Comment(s): lung General Exam Limitations: no limitations General appearance: alert, in no apparent distress Head exam: Present: atraumatic, normocephalic, normal inspection Eye exam: Present: normal appearance, EOMI. Absent: scleral icterus, periorbital swelling Neck exam: Present: normal inspection, full ROM Respiratory exam: Present: normal lung sounds bilaterally. Absent: respiratory distress, wheezes, rales, rhonchi, stridor Cardiovascular Exam: Present: regular rate, normal rhythm, normal heart sounds. Absent: systolic murmur, diastolic murmur, rubs, gallop, clicks GI/Abdominal exam: Present: soft, other (Small puncture site where fluid was able to be expressed). Absent: distended, tenderness, guarding, rebound, rigid Neurological exam: Present: alert, oriented X3, CN II-XII intact Psychiatric exam: Present: normal affect, normal mood Skin exam: Present: warm, dry, intact, normal color. Absent: rash Course Vital Signs 04/28/23 04/28/23 19:20 20:17 Temperature 98.4 F Pulse Rate 69 62 Respiratory 18 16 Rate Blood Pressure 118/65 116/67 O2 Sat by Pulse 98 97 Oximetry Medical Decision Making - Medical Decision Making Was pt. sent in by a medical professional or institution (, SHANNAN, DISABILITY BENEFITS SPECIALIST, urgent care, hospital, or penitentiary...) When possible be specific @ -No Did you speak to anyone other than the patient for history (EMS, parent, family, police, friend...)? What history was obtained from this source @ -No Did you review nursing and triage notes (agree or disagree)? Why? @ -I reviewed and agree with nursing and triage notes Were old charts reviewed (outside hosp., previous admission, EMS record, old EKG, old radiological studies, urgent care reports/EKG's, penitentiary records)? Report findings @ -No old charts were reviewed Differential Diagnosis (chest pain, altered mental status, abdominal pain women, abdominal pain men, vaginal bleeding, weakness, fever, dyspnea, syncope, headache, dizziness, GI bleed, back pain, seizure, CVA, palpatations, mental health, musculoskeletal)? @ -Differential includes postop complication, retroperitoneal hemorrhage, this is not an all-inclusive list EKG interpreted by me (3pts min.). @ -As above X-rays interpreted by me (1pt min.). @ -None done CT interpreted by me (1pt min.). @ -None done U/S interpreted by me (1pt. min.). @ -None done What testing was considered but not performed or refused? (CT, X-rays, U/S, labs)? Why? @ -None What meds were considered but not given or refused? Why? @ -None Did you discuss the management of the patient with other professionals (professionals i.e. SHANNAN Treviño, DISABILITY BENEFITS SPECIALIST, lab, RT, psych nurse, social professionals, church warden, teacher, loan review officer, pillowcase maker)? Give summary @ -No Was smoking cessation discussed for >3mins.? @ -No Was critical care preformed (if so, how long)? @ -No Were there social determinants of health that impacted care today? How? (Homeles sness, low income, unemployed, alcoholism, drug addiction, transportation, low edu. Level, literacy, decrease access to med. care, longterm, rehab)? @ -No Was there de-escalation of care discussed even if they declined (Discuss DNR or withdrawal of care, Hospice)? DNR status @ -No What co-morbidities impacted this encounter? (DM, HTN, Smoking, COPD, CAD, Cancer, CVA, ARF, Chemo, Hep., AIDS, mental health diagnosis, sleep apnea, morbid obesity)? @ -None Was patient admitted / discharged? Hospital course, mention meds given and route, prescriptions, significant lab abnormalities, going to OR and other pertinent info. @ -83-year-old male presenting for evaluation of fluid leaking from his paracentesis site. Paracentesis performed yesterday at [facility]. On physical examination there is a small puncture site where fluid is seen slowly draining. Fluid does not appear purulent in nature. No peritoneal signs on abdominal examination. Vital signs are stable. Dressing is applied and patient was educated on alarms signs which should prompt immediate reevaluation. Patient is told if he is having continued drainage after 24 hours to report back to the facility where his paracentesis was performed. Follow-up with PCP. Report back to ER with any new or worsening symptoms. Discussed return parameters and answered all questions. Patient conveyed verbal understanding and agreed to the plan. I discussed this case in detail with my attending Dr. Harris Undiagnosed new problem with uncertain prognosis? @ -No Drug Therapy requiring intensive monitoring for toxicity (Heparin, Nitro, Insulin, Cardizem)? @ -No Were any procedures done? @ -No Diagnosis/symptom? @ -Status post paracentesis Acute, or Chronic, or Acute on Chronic? @ -Acute Uncomplicated (without systemic symptoms) or Complicated (systemic symptoms)? @ -Uncomplicated Side effects of treatment? @ -No Exacerbation, Progression, or Severe Exacerbation? @ -No Poses a threat to life or bodily function? How? (Chest pain, [place], [place], pneumonia, PE, COPD, DKA, ARF, appy, cholecystitis, CVA, Diverticulitis, Homicidal, Suicidal, threat to staff... and all critical care pts) @ -No Disposition Clinical Impression: Status post abdominal paracentesis Disposition: HOME SELF-CARE Condition: Good Instructions (If sedation given, give patient instructions): Paracentesis (DC) Additional Instructions: Follow-up with PCP. If fluid continues after 24 hours report back to the hospital you had your paracentesis performed at. Report back to ER with any new or worsening symptoms. Is patient prescribed a controlled substance at d/c from ED?: No Referrals: Last Orona Jr, [Primary Care Provider] - 1-2 days Time of Disposition: 20:00
[2023-04-28 20:19] VITALS: BP 116/67; PULSE 62; RESP 16
== END 2023-04-28 20:21 | disposition home or self-care (01) ==
LOC: EC 18:28
DX: Z98.890 Other specified postprocedural states (principal); I48.91 Unspecified atrial fibrillation; I11.0 Hypertensive heart disease with heart failure; I50.9 Heart failure, unspecified; K21.9 Gastro-esophageal reflux disease without esophagitis; E78.5 Hyperlipidemia, unspecified; Z79.01 Long term (current) use of anticoagulants; Z87.891 Personal history of nicotine dependence; Z79.899 Other long term (current) drug therapy
CPT/HCPCS: 99283

== ENCOUNTER 2023-11-20 13:08 | Emergency (ER) | payer OTHER, MEDICARE ==
[2023-11-20 13:36] VITALS: TEMP 97.8
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
[2023-11-20 16:33] LABS: Anisocytosis Slight; Basophils % (A) 0 %; Eosinophils # (A) 0.1 k/uL (0-0.7); Eosinophils % (A) 1 %; HCT 32.3 % (39.0-53.0); HGB 9.8 gm/dL (13.0-17.5); Hypochromasia Marked; Lymphocytes # (A) 0.5 k/uL (1.0-4.8); Lymphocytes % (A) 9 %; MCH 27.6 pg (25.0-35.0); MCHC 30.2 g/dL (31.0-37.0); MCV 91.4 fL (80.0-100.0); Mean Platelet Volume 8.2; Monocytes # (A) 0.4 k/uL (0-1.0); Monocytes % (A) 6 %; Neutrophils # (A) 4.6 k/uL (1.3-7.7); Neutrophils % (A) 82 %; Platelet Count 197 k/uL (150-450); RBC 3.54 m/uL (4.30-5.90); WBC 5.6 k/uL (3.8-10.6)
[2023-11-20 16:41] LABS: ALT 20 U/L (4-49); AST 39 U/L (17-59); African American GFR (CKD) 40 (>60 ml/min/1.73 sqM); Albumin 3.1 g/dL (3.5-5.0); Alkaline Phosphatase 125 U/L (38-126); Anion Gap 11 mmol/L; Blood Urea Nitrogen 48 mg/dL (9-20); Calcium 8.1 mg/dL (8.4-10.2); Carbon Dioxide 17 mmol/L (22-30); Chloride 98 mmol/L (98-107); Glucose 93 mg/dL (74-99); Non-African American GFR(CKD) 35 (>60 ml/min/1.73 sqM); Potassium 4.7 mmol/L (3.5-5.1); Sodium 126 mmol/L (137-145); Total Bilirubin 0.5 mg/dL (0.2-1.3)
[2023-11-20 17:56] VITALS: BP 106/63; PULSE 60; RESP 18
== END 2023-11-20 18:21 | disposition other institution (70) ==
LOC: EC 13:08
DX: S12.100A Unspecified displaced fracture of second cervical vertebra, initial encounter for closed fracture (principal); S12.112A Nondisplaced Type II dens fracture, initial encounter for closed fracture; K70.31 Alcoholic cirrhosis of liver with ascites; I67.82 Cerebral ischemia; I65.23 Occlusion and stenosis of bilateral carotid arteries; I48.91 Unspecified atrial fibrillation; I11.0 Hypertensive heart disease with heart failure; I50.9 Heart failure, unspecified; K21.9 Gastro-esophageal reflux disease without esophagitis; E78.5 Hyperlipidemia, unspecified; Z87.891 Personal history of nicotine dependence; Z79.01 Long term (current) use of anticoagulants; Z79.899 Other long term (current) drug therapy; V89.2XXA Person injured in unspecified motor-vehicle accident, traffic, initial encounter; Y92.411 Interstate highway as the place of occurrence of the external cause
CPT/HCPCS: 36415; 80053; 85025; 72125; 70486; 70450; 99285; L0174